=== PATIENT | female | born 1945 | race Caucasian/White ===

== ENCOUNTER → 2018-06-17 09:10 | Outpatient (CLI) | payer MEDICARE, OTHER, SELFPAY ==
[2018-06-17 11:15] LABS: Anion Gap 9.8 mmol/L (3-11); BUN 35 mg/dL (7-18); CO2 27.2 mmol/L (21.0-32.0); CREATININE 1.22 mg/dL (0.55-1.02); Calcium 9.5 mg/dL (8.5-10.1); Chloride 103 mmol/L (98-107); Cholesterol 118 mg/dL (50-200); Estimated GFR 42.97 (mL/min/1.73m2); Glucose 121 mg/dL (70-100); HDL Cholesterol 37 mg/dL (40-60); LDL CHOLESTEROL 69 mg/dL (<100); Potassium 4.4 mmol/L (3.5-5.1); Sodium 140 mmol/L (136-145); Triglyceride 79 mg/dL (30-150)
== END ==
PROVIDERS: PCP Internal Medicine; Visit Provider Internal Medicine
DX: E78.00 Pure hypercholesterolemia, unspecified (principal); N18.3 Chronic kidney disease, stage 3 (moderate)
CPT/HCPCS: 36415; 80048; 80061; 83721

== ENCOUNTER → 2018-06-18 10:00 | Outpatient (CLI) | payer MEDICARE, OTHER, SELFPAY | PROVIDERS: PCP Internal Medicine; Visit Provider Orthopaedic Surgery | DX: M18.12 Unilateral primary osteoarthritis of first carpometacarpal joint, left hand (principal); M75.121 Complete rotator cuff tear or rupture of right shoulder, not specified as traumatic; G56.02 Carpal tunnel syndrome, left upper limb | CPT/HCPCS: 99213 ==

== ENCOUNTER → 2018-09-18 12:42 | Outpatient (BNVA) | payer MEDICARE, OTHER, SELFPAY | PROVIDERS: PCP Internal Medicine; Visit Provider Student in an Organized Health Care Education/Training Program | DX: R69 Illness, unspecified (principal) | CPT/HCPCS: 99204 ==

== ENCOUNTER 2018-09-18 13:11 | Outpatient (CLI) | payer MEDICARE, OTHER, SELFPAY | END 2018-09-18 13:31 | PROVIDERS: PCP Internal Medicine; Visit Provider Student in an Organized Health Care Education/Training Program | DX: I25.10 Atherosclerotic heart disease of native coronary artery without angina pectoris (principal); Z95.818 Presence of other cardiac implants and grafts; I25.2 Old myocardial infarction; I10 Essential (primary) hypertension; E11.9 Type 2 diabetes mellitus without complications; Z79.84 Long term (current) use of oral hypoglycemic drugs | CPT/HCPCS: 99204; 99215; 93005; 93010 ==

== ENCOUNTER 2018-09-25 12:06 | Outpatient (RCR) | payer MEDICARE, OTHER, SELFPAY | END 2018-09-27 23:59 | disposition home or self-care (01) | LOC: CR 12:06 | PROVIDERS: PCP Internal Medicine; Visit Provider Family Medicine | DX: I25.2 Old myocardial infarction (principal); Z51.89 Encounter for other specified aftercare ==

== ENCOUNTER 2018-10-28 13:00 | Outpatient (RCR) | payer MEDICARE, OTHER, SELFPAY | END 2018-10-28 23:59 | disposition home or self-care (01) | LOC: CR 13:00 | PROVIDERS: PCP Internal Medicine; Visit Provider Family Medicine | DX: I25.2 Old myocardial infarction (principal); Z51.89 Encounter for other specified aftercare | CPT/HCPCS: S9472 ==

== ENCOUNTER 2018-11-25 10:00 | Outpatient (RCR) | payer MEDICARE, OTHER, SELFPAY | END 2018-11-28 23:59 | disposition home or self-care (01) | LOC: CR 10:00 | PROVIDERS: PCP Internal Medicine; Visit Provider Family Medicine | DX: I25.2 Old myocardial infarction (principal); Z51.89 Encounter for other specified aftercare | CPT/HCPCS: S9472 ==

== ENCOUNTER 2018-12-14 11:12 | Emergency (ER) | payer MEDICARE, OTHER, SELFPAY ==
--- NOTE | 2018-12-14 11:21 | NUR.NOTE ---
pt slipped at approximately 1100 this morning pt is complaining of a headache 3/10 pt has hematoma over right eye. pt is on plavix
[2018-12-14 11:24] VITALS: BP 154/80; PULSE 87; RESP 16; TEMP 36.4; O2SAT 95
--- NOTE | 2018-12-14 11:39 | DI.CT_ITS ---
SYMPTOMS/DIAGNOSIS: RIGHT FRONTAL HEAD TRAUMA, TENDERNESS TO LOWER C-SPINE S/P FALL CT BRAIN: Noncontrast examination was performed. No priors. The ventricles and sulci are consistent with the patient's age. There are areas of decreased attenuation in the white matter consistent with small vessel ischemic disease. No intracranial hemorrhage, infarct, midline shift or mass effect is identified. The ventricles are intact. The basilar cisterns are patent. There is no evidence of a calvarial fracture. The visualized paranasal sinuses are clear. The mastoid air cells are well pneumatized. There is right periorbital soft tissue swelling noted. IMPRESSION: No acute intracranial process. CT SCAN OF THE CERVICAL SPINE: Multiple contiguous axial images of the cervical spine were obtained. Sagittal and coronal reformatted images were evaluated on the Siemens workstation. Comparison is 09/16/15. No acute fractures or subluxations are seen in the cervical spine. There is normal alignment. There are moderate degenerative changes present throughout the cervical spine. The prevertebral soft tissues are unremarkable. IMPRESSION: No acute fracture or subluxation in the cervical spine.
--- NOTE | 2018-12-14 11:40 | W.ED.GENAD ---
Discharge Plan Disposition Patient Disposition: HOME Discharge Details Chief Complaint: HeadInjury Clinical Impression: Fall, Facial hematoma Primary Care Provider: Rosalie Joya ED Provider: Peter Mishra Home Meds and New Rx's Prescriptions: Continued gabapentin 300 mg capsule 300 mg PO TID PRN (Reason: muscle spasm) Qty: 270 RF: 3 pramipexole 0.5 mg tablet 0.5 mg PO HS Qty: 90 RF: 3 prednisone 1 mg tablet 1 mg PO DAILY Qty: 90 RF: 3 melatonin 3 mg tablet 3 mg PO HS PRNRF: 0 tramadol 50 mg tablet 50 mg PO Q8H PRNRF: 0 nitroglycerin [Nitrostat] 0.4 MG tablet, sublingual 0.4 mg Sublingual PRN RF: 0 cholecalciferol (vitamin D3) [Vitamin D3] 2,000 UNIT capsule 5,000 unit PO DAILY RF: 0 glucosamine HCl 500 MG tablet 2,000 mg PO DAILY RF: 0 promethazine 25 MG tablet 25 mg PO Q6H PRN RF: 0 Aoi.CoTouch Ultra Test 1 EACH strip 1 ea Miscellaneous RF: 0 aspirin [Aspir-Low] 81 MG tablet,delayed release (DR/EC) 81 mg PO DAILY RF: 0 pantoprazole 20 MG tablet,delayed release (DR/EC) 20 mg PO BID Qty: 180 RF: 3 triamterene-hydrochlorothiazid 75-50 mg tablet 1 tab PO DAILY Qty: 90 RF: 3 potassium chloride 10 mEq tablet extended release 10 meq PO DAILY Qty: 90 RF: 3 lisinopril 2.5 mg tablet 2.5 mg PO DAILY Qty: 90 RF: 3 metoprolol tartrate 25 mg tablet 12.5 mg PO BID Qty: 90 RF: 3 clopidogrel 75 mg tablet 75 mg PO DAILY Qty: 90 RF: 3 atorvastatin 80 mg tablet 80 mg PO DAILY Qty: 90 RF: 3 loratadine 10 mg tablet 10 mg PO DAILY Qty: 90 RF: 3 methocarbamol 500 mg tablet 500 mg PO QID PRN (Reason: pain) Qty: 60 RF: 0 glipizide 5 mg tablet extended release 24hr 5 mg PO BID Qty: 180 RF: 2 isosorbide mononitrate 30 mg tablet extended release 24 hr 30 mg PO DAILY Qty: 60 RF: 0 hydrocodone-acetaminophen 1 EACH tablet 1 tab PO Q6H PRN PRNQty: 7 RF: 0 Discharge Instructions Instructions: Fall Prevention for Older Adults (ED), Hematoma (ED) Additional Instructions: Please contact your primary care physician to arrange follow-up. Return to the ER for any worsening or new concerning symptoms. Referrals: Rosalie Joya MD [Primary Care Provider] - Medical Decision Making 11:43 --23-year-old female here after mechanical slip and fall with head trauma on aspirin and Plavix with associated nausea. Right supraorbital hematoma. C-spine tender. Consider acute life-threatening intracranial traumatic hemorrhage. Plan to CT head. Consider cervical fracture. Will obtain CT of the cervical spine. 13:30 --CT of the head interpreted by radiology: No acute abnormality. CT of the cervical spine interpreted by radiology: No acute findings. Pt reassessed and stable. cspine cleared. Usual customary discharge instructions were provided HPI General Mode of arrival: ambulatory. Date/Time Provider Initiated Documentation: 12/14/18 11:39. Limitations to Documentation: no limitations. Information obtained by: patient. HPI Narrative: 73-year-old female with history of coronary artery disease on Plavix and aspirin here after mechanical slip and fall on ice with head trauma. Fall occurred at 1045 this morning. She impacted her right frontal head on the ground. She did not lose consciousness. No visual change, numbness or weakness. She does have pain in her right frontal area with associated hematoma. She also notes some associated nausea. No vomiting. Patient does note that she injured her left arm but does not think it is broken and feels that she just strained a muscle. Related Data Home Medications Medication Instructions Recorded Confirmed cholecalciferol (vitamin D3) 5,000 unit PO DAILY 02/01/15 12/14/18 [Vitamin D3] glucosamine HCl 2,000 mg PO DAILY 02/01/15 12/14/18 nitroglycerin [Nitrostat] 0.4 mg SUBLINGUAL PRN 02/01/15 12/14/18 promethazine 25 mg PO Q6H PRN 02/17/15 12/14/18 OneTouch Ultra Test strip 09/08/15 12/14/18 hydrocodone-acetaminophen 1 tab PO Q6H PRN PRN #7 tab 03/13/18 12/14/18 aspirin [Aspir-Low] 81 mg PO DAILY tab 06/18/18 12/14/18 pantoprazole 20 mg PO BID #180 tab-cap 06/18/18 12/14/18 atorvastatin 80 mg tablet 80 mg PO DAILY #90 tab 07/09/18 12/14/18 clopidogrel 75 mg tablet 75 mg PO DAILY #90 tab 07/09/18 12/14/18 lisinopril 2.5 mg tablet 2.5 mg PO DAILY #90 tab 07/09/18 12/14/18 metoprolol tartrate 25 mg tablet 12.5 mg PO BID #90 tab 07/09/18 12/14/18 potassium chloride ER 10 mEq 10 meq PO DAILY #90 tab-cap 07/09/18 12/14/18 tablet,extended release triamterene 75 1 tab PO DAILY #90 tab-cap 07/09/18 12/14/18 mg-hydrochlorothiazide 50 mg tablet loratadine 10 mg tablet 10 mg PO DAILY #90 tab 07/19/18 12/14/18 melatonin 3 mg tablet 3 mg PO HS PRN 10/08/18 12/14/18 methocarbamol 500 mg tablet 500 mg PO QID PRN #60 tab 10/08/18 12/14/18 tramadol 50 mg tablet 50 mg PO Q8H PRN tab 10/08/18 12/14/18 glipizide ER 5 mg tablet, extended 5 mg PO BID #180 tab 10/09/18 12/14/18 release 24 hr isosorbide mononitrate ER 30 mg 30 mg PO DAILY #60 tab-cap 10/15/18 12/14/18 tablet,extended release 24 hr gabapentin 300 mg capsule 300 mg PO TID PRN #270 cap 12/04/18 12/14/18 pramipexole 0.5 mg tablet 0.5 mg PO HS #90 tab-cap 12/04/18 12/14/18 prednisone 1 mg tablet 1 mg PO DAILY #90 tab 12/04/18 12/14/18 Previous Rx's Medication Instructions Recorded hydrocodone-acetaminophen 1 tab PO Q6H PRN PRN #7 tab 03/13/18 pantoprazole 20 mg PO BID #180 tab-cap 06/18/18 atorvastatin 80 mg tablet 80 mg PO DAILY #90 tab 07/09/18 clopidogrel 75 mg tablet 75 mg PO DAILY #90 tab 09/11/18 lisinopril 2.5 mg tablet 2.5 mg PO DAILY #90 tab 07/09/18 metoprolol tartrate 25 mg tablet 12.5 mg PO BID #90 tab 07/09/18 potassium chloride ER 10 mEq 10 meq PO DAILY #90 tab-cap 07/09/18 tablet,extended release triamterene 75 1 tab PO DAILY #90 tab-cap 07/09/18 mg-hydrochlorothiazide 50 mg tablet loratadine 10 mg tablet 10 mg PO DAILY #90 tab 07/19/18 methocarbamol 500 mg tablet 500 mg PO QID PRN #60 tab 10/08/18 glipizide ER 5 mg tablet, extended 5 mg PO BID #180 tab 10/09/18 release 24 hr isosorbide mononitrate ER 30 mg 30 mg PO DAILY #60 tab-cap 10/15/18 tablet,extended release 24 hr gabapentin 300 mg capsule 300 mg PO TID PRN #270 cap 12/04/18 pramipexole 0.5 mg tablet 0.5 mg PO HS #90 tab-cap 12/04/18 prednisone 1 mg tablet 1 mg PO DAILY #90 tab 12/04/18 Allergies Allergy/AdvReac Type Severity Reaction Status Date / Time metformin Allergy Severe unknown Verified 12/04/18 12:29 Penicillins Allergy Unknown unknown Verified 12/04/18 12:29 rofecoxib [From Vioxx] Allergy Unknown unknown Verified 12/04/18 12:29 tolmetin sodium Allergy Unknown unknown Verified 12/04/18 12:29 [From Tolectin] marijuana AdvReac Intermediate vomitng Verified 12/04/18 12:29 celecoxib [From Celebrex] AdvReac Unknown kindey Verified 12/04/18 12:29 NSAIDS (Non-Steroidal AdvReac Unknown kidney Verified 12/04/18 12:29 Anti-Inflamma General Stated Complaint: HeadInjury SAHRA: 3 Review of Systems Review of Systems All systems reviewed & are unremarkable except as noted in HPI and below Eyes Denies change in vision Gastrointestinal Reports nausea PFSH Medical History T2DM (type 2 diabetes mellitus) Surgical History Endoscopic Carpal Tunnel release (03/13/18) Tonsillectomy and adenoidectomy (02/17/1954) Family History Mother Osteoporosis Arthritis Heart disease Stroke Father Diabetes Arthritis Heart disease Emphysema lung Stroke Sister Diabetes Arthritis Heart disease Mental disorder Social History housing: apartment lives independently: Yes Smoking and Tabacco status: Former Tobacco Use alcohol intake: current alcohol intake frequency: a few times a month substance use type: does not use Seatbelt use: always 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 working smoke detector in home: Yes fire extinguisher in home: Yes carbon monox detector in home: Yes Exam Const General: cooperative and no acute distress HENMT Head: normocephalic, no Heaton's sign, contusion (rt supraorbital), no palpable skull fracture and no raccoon eyes General nose exam: external nose normal Face and sinus: no lacerations Mouth: moist mucous membranes Eyes Conjunctivae: normal conjunctivae Sclera: normal sclerae EOM: EOM intact bilaterally Neck Neck: trachea midline, supple and tender (c6 c7 tenderness) Resp Auscultation: clear to auscultation bilaterally, no rales, no rhonchi and no wheezes Cardio Jugular venous pressure: no JVD Rate: regular rate and not tachycardic Rhythm: regular rhythm GI Palpation: soft, not firm, no guarding, no masses, not rigid and nontender Skin General skin exam: no rashes or lesions noted Neuro General: alert, awake, oriented x3 and tone normal Extrem General: no edema Left upper extremity: normal to inspection Psych Appearance: grossly normal Mental Status: mental status grossly normal Speech and Movement: speech and movement normal Course Vital Signs Temperature 36.4 C L 12/14/18 11:24 Pulse 87 12/14/18 11:24 Respiratory Rate 16 12/14/18 11:24 Blood Pressure 154/80 H 12/14/18 11:24 Pulse Oximetry 95 12/14/18 11:24 Temperature 36.4 C L 12/14/18 11:24 Temperature Source Skin 12/14/18 11:24 Pulse 87 12/14/18 11:24 Respiratory Rate 16 12/14/18 11:24 Respiratory Effort 12/14/18 11:27 Blood Pressure 154/80 H 12/14/18 11:24 Blood Pressure Position Sitting 12/14/18 11:24 Pulse Oximetry 95 12/14/18 11:24 Oxygen Delivery Method Room Air 12/14/18 11:24 Oxygen Flow Rate 0 12/14/18 11:24 Pain Level 3 12/14/18 11:24
--- NOTE | 2018-12-14 13:28 | DI.VRAD_ITS ---
EXAM: CT Head Without Contrast EXAM DATE/TIME: 12/14/2018 11:40 AM CLINICAL HISTORY: 73 years old, female; Signs and symptoms; Other: Fall, RT frontal head trauma, ttp lower cspine TECHNIQUE: Axial computed tomography images of the head/brain without contrast. All CT scans at this facility use at least one of these dose optimization techniques: automated exposure control; mA and/or kV adjustment per patient size (includes targeted exams where dosematched to clinical indication); or iterative reconstruction. Coronal and sagittal reformatted images were created and reviewed. COMPARISON: No relevant prior studies available. FINDINGS: Brain: Generalized atrophy and chronic white matter ischemic changes. There is no mass, acute hemorrhage or acute infarct. Ventricles: Normal. No ventriculomegaly. Bones/joints: Unremarkable. No acute fracture. Sinuses: Visualized sinuses are unremarkable. No acute sinusitis. Mastoid air cells: Visualized mastoid air cells are unremarkable. No mastoid effusion. Soft tissues: Unremarkable. IMPRESSION: No acute abnormality. EXAM: CT Cervical Spine Without Contrast EXAM DATE/TIME: 12/14/2018 11:40 AM CLINICAL HISTORY: 73 years old, female; Signs and symptoms; Other: Fall, RT frontal head trauma, ttp lower cspine TECHNIQUE: Axial computed tomography images of the cervical spine without intravenous contrast. All CT scans at this facility use at least one of these dose optimization techniques: automated exposure control; mA and/or kV adjustment per patient size (includes targeted exams where dose is matched to clinical indication); or iterative reconstruction. Coronal and sagittal reformatted images were created and reviewed. COMPARISON: No relevant prior studies available. FINDINGS: Vertebrae: No acute fracture. Normal alignment. Discs/Spinal canal/Neural foramina:There is moderate multilevel central spinal and foraminal stenosis, secondary to disc buldge/osteophytic spurring.Multilevel advanced facet arthropathy. Soft tissues: Unremarkable. Lungs: Lung apices are normal. IMPRESSION: No acute findings. Dictated and Authenticated by: Genet Norton MD. Ordering:RICHARD Green MD
[2018-12-14 13:42] VITALS: BP 98/51; PULSE 98; RESP 16; O2SAT 98
== END 2018-12-14 13:42 | disposition home or self-care (01) ==
PROVIDERS: Emergency Provider Student in an Organized Health Care Education/Training Program; PCP Internal Medicine
DX: S09.90XA Unspecified injury of head, initial encounter (principal); S00.83XA Contusion of other part of head, initial encounter; W00.0XXA Fall on same level due to ice and snow, initial encounter; Z79.02 Long term (current) use of antithrombotics/antiplatelets; Z79.82 Long term (current) use of aspirin; R11.0 Nausea; E11.9 Type 2 diabetes mellitus without complications; Z79.84 Long term (current) use of oral hypoglycemic drugs; I10 Essential (primary) hypertension
CPT/HCPCS: 99284; 70450; 72125; L0172

== ENCOUNTER 2018-12-25 10:00 | Outpatient (RCR) | payer MEDICARE, OTHER, SELFPAY | END 2018-12-26 23:59 | disposition home or self-care (01) | LOC: CR 10:00 | PROVIDERS: PCP Internal Medicine; Visit Provider Family Medicine | DX: I25.2 Old myocardial infarction (principal); Z51.89 Encounter for other specified aftercare | CPT/HCPCS: S9472 ==

== ENCOUNTER 2019-01-24 11:06 | Outpatient (CLI) | payer MEDICARE, OTHER, SELFPAY ==
[2019-01-24 12:38] LABS: C-Reactive Protein 1.09 mg/dL (0.0-0.3); Creatine Kinase 139 U/L (26-192)
[2019-01-24 13:02] LABS: ESR 44 MM/HR (0-30)
[2019-01-27 12:26] LABS: Syphilis Serology (RPR) Negative (Negative)
[2019-01-27 12:48] LABS: Rheumatoid Factor <8 IU/mL (<12.5)
[2019-01-27 14:17] LABS: ANA Interpretation Negative (NEGAT)
== END 2019-01-24 11:26 ==
PROVIDERS: PCP Internal Medicine; Visit Provider Internal Medicine
DX: M25.50 Pain in unspecified joint (principal); M79.10 Myalgia, unspecified site; E55.9 Vitamin D deficiency, unspecified
CPT/HCPCS: 36415; 82306; 82550; 85652; 84550; 86038; 86140; 86431; 86592

== ENCOUNTER 2019-01-24 12:51 | Outpatient (RCR) | payer MEDICARE, OTHER, SELFPAY | END 2019-01-26 23:59 | disposition home or self-care (01) | LOC: CR 12:51 | PROVIDERS: PCP Internal Medicine; Visit Provider Family Medicine | DX: I25.2 Old myocardial infarction (principal); Z51.89 Encounter for other specified aftercare | CPT/HCPCS: S9472 ==

== ENCOUNTER 2019-02-19 15:30 | Outpatient (REF) | payer MEDICARE, OTHER, SELFPAY ==
[2019-02-20 10:18] LABS: COMMENT (LAB VIEW ONLY) 118.76 mg/dL; Microalb ug/mg Crea 15.9 ug/mg Cr
== END 2019-02-19 15:50 ==
LOC: LBN 15:30
PROVIDERS: PCP Internal Medicine; Visit Provider Internal Medicine
DX: E11.9 Type 2 diabetes mellitus without complications (principal)
CPT/HCPCS: 82043; 82570

== ENCOUNTER 2019-03-14 10:16 | Outpatient (CLI) | payer MEDICARE, OTHER, SELFPAY ==
[2019-03-14 11:17] LABS: C-Reactive Protein 0.47 mg/dL (0.0-0.3); Uric Acid 6.8 mg/dL (2.6-6.0)
== END 2019-03-14 10:36 ==
PROVIDERS: PCP Internal Medicine; Visit Provider Internal Medicine
DX: M10.9 Gout, unspecified (principal); M25.50 Pain in unspecified joint
CPT/HCPCS: 36415; 84550; 86140

== ENCOUNTER 2019-03-30 13:32 | Emergency (ER) | payer MEDICARE, OTHER, SELFPAY ==
[2019-03-30 13:38] VITALS: BP 170/80; PULSE 78; RESP 15; TEMP 37.4; O2SAT 97
--- NOTE | 2019-03-30 15:08 | ED.GENADUL_ITS ---
Discharge Plan Disposition Patient Disposition: HOME Condition: Good Discharge Details Chief Complaint: Cellulitis Clinical Impression: Tick bite of knee Primary Care Provider: Rosalie Joya ED Provider: Oracio Simmons Home Meds and New Rx's Prescriptions: Continued triamcinolone acetonide 0.1 % cream 1 applic TP BID Qty: 15 RF: 1 gabapentin 300 mg capsule 300 mg PO TID PRN (Reason: muscle spasm) Qty: 270 RF: 3 pramipexole 0.5 mg tablet 0.5 mg PO HS Qty: 90 RF: 3 quinine sulfate 324 mg capsule 324 mg PO QHS RF: 0 probenecid-colchicine 500-0.5 mg tablet 1 tab PO BID Qty: 180 RF: 0 tramadol 50 mg tablet 50 mg PO Q8H PRNRF: 0 melatonin 3 mg tablet 3 mg PO HS RF: 0 nitroglycerin [Nitrostat] 0.4 MG tablet, sublingual 0.4 mg Sublingual PRN RF: 0 cholecalciferol (vitamin D3) [Vitamin D3] 2,000 UNIT capsule 5,000 unit PO DAILY RF: 0 glucosamine HCl 500 MG tablet 2,000 mg PO DAILY RF: 0 promethazine 25 MG tablet 25 mg PO Q6H PRN RF: 0 OneTouch Ultra Test 1 EACH strip 1 ea Miscellaneous RF: 0 aspirin [Aspir-Low] 81 MG tablet,delayed release (DR/EC) 81 mg PO DAILY RF: 0 pantoprazole 20 MG tablet,delayed release (DR/EC) 20 mg PO BID Qty: 180 RF: 3 triamterene-hydrochlorothiazid 75-50 mg tablet 1 tab PO DAILY Qty: 90 RF: 3 potassium chloride 10 mEq tablet extended release 10 meq PO DAILY Qty: 90 RF: 3 lisinopril 2.5 mg tablet 2.5 mg PO DAILY Qty: 90 RF: 3 metoprolol tartrate 25 mg tablet 12.5 mg PO BID Qty: 90 RF: 3 clopidogrel 75 mg tablet 75 mg PO DAILY Qty: 90 RF: 3 atorvastatin 80 mg tablet 80 mg PO DAILY Qty: 90 RF: 3 loratadine 10 mg tablet 10 mg PO DAILY Qty: 90 RF: 3 methocarbamol 500 mg tablet 500 mg PO QID PRN (Reason: pain) Qty: 60 RF: 0 glipizide 5 mg tablet extended release 24hr 5 mg PO BID Qty: 180 RF: 2 isosorbide mononitrate 30 mg tablet extended release 24 hr 30 mg PO DAILY Qty: 60 RF: 0 hydrocodone-acetaminophen 1 EACH tablet 1 tab PO Q6H PRN PRNQty: 7 RF: 0 prednisone 2 mg Tablet,Delayed Release (Dr/Ec) 2 mg PO DAILY AM RF: 0 Discharge Instructions Instructions: Tick Bite (ED) Additional Instructions: Please continue to watch the area and return for any signs of infection from the insect/tick bite. Please follow-up with your primary care provider if you develop any change in arthralgias, swelling of your joints that is abnormal, fever chills, vague illness symptoms. Referrals: Rosalie Joya MD [Primary Care Provider] - (As needed for reassessment) Discharge Data Discharge Date/Time-TO BE ENTERED AT DEPARTURE: 03/30/19 15:16 Medical Decision Making Patient presenting to the emergency department chief complaint of tick bite. Patient states that this occurred possibly 2 to 3 days ago. Patient denies any other symptoms, arthralgias, fever chills. Physical exam is unremarkable except for erythema consistent with insect bite and more than likely tick there is some scabbing behind right posterior knee from where patient states that family member pulled off the tick but is concerned for possible remaining parts. Splinter tweezers was utilized to remove any remaining material which was not consistent with tick but more with excoriated skin. Reviewed different types of ticks with patient and she stated that she felt it was a deer tick and given the possibility of it being attached for the last 2 to 3 days I do feel that single dose of medication is warranted for prophylaxis of Lyme. Patient given 200 mg dose of doxycycline. Return precautions were discussed. After discussion of diagnosis and plan of care patient has no further needs, questions, or concerns and states clear understanding to return to the emergency department for any worsening symptoms. HPI General Mode of arrival: ambulatory . Date/Time Provider Initiated Documentation: 03/30/19 14:50 . Limitations to Documentation: no limitations . Information obtained by: patient and RN notes reviewed . History of Present Illness 73 year old F presents to the emergency department with the chief complaint of Tick bite, Patient notes no other symptoms.. Patient did receive the following treatments prior to arrival, none Related Data Home Medications Medication Instructions Recorded Confirmed cholecalciferol (vitamin D3) 5,000 unit PO DAILY 02/01/15 03/30/19 [Vitamin D3] glucosamine HCl 2,000 mg PO DAILY 02/01/15 03/30/19 nitroglycerin [Nitrostat] 0.4 mg SUBLINGUAL PRN 02/01/15 03/30/19 promethazine 25 mg PO Q6H PRN 02/17/15 03/30/19 OneTouch Ultra Test strip 09/08/15 03/19/19 hydrocodone-acetaminophen 1 tab PO Q6H PRN PRN #7 tab 03/13/18 03/30/19 aspirin [Aspir-Low] 81 mg PO DAILY tab 06/18/18 03/30/19 pantoprazole 20 mg PO BID #180 tab-cap 06/18/18 03/30/19 atorvastatin 80 mg tablet 80 mg PO DAILY #90 tab 07/09/18 03/30/19 clopidogrel 75 mg tablet 75 mg PO DAILY #90 tab 07/09/18 03/30/19 lisinopril 2.5 mg tablet 2.5 mg PO DAILY #90 tab 07/09/18 03/30/19 metoprolol tartrate 25 mg tablet 12.5 mg PO BID #90 tab 07/09/18 03/30/19 potassium chloride ER 10 mEq 10 meq PO DAILY #90 tab-cap 07/09/18 03/30/19 tablet,extended release triamterene 75 1 tab PO DAILY #90 tab-cap 07/09/18 03/30/19 mg-hydrochlorothiazide 50 mg tablet loratadine 10 mg tablet 10 mg PO DAILY #90 tab 07/19/18 03/30/19 methocarbamol 500 mg tablet 500 mg PO QID PRN #60 tab 10/08/18 03/30/19 tramadol 50 mg tablet 50 mg PO Q8H PRN tab 10/08/18 03/30/19 glipizide ER 5 mg tablet, extended 5 mg PO BID #180 tab 10/09/18 03/30/19 release 24 hr isosorbide mononitrate ER 30 mg 30 mg PO DAILY #60 tab-cap 10/15/18 03/30/19 tablet,extended release 24 hr gabapentin 300 mg capsule 300 mg PO TID PRN #270 cap 12/04/18 03/30/19 pramipexole 0.5 mg tablet 0.5 mg PO HS #90 tab-cap 12/04/18 03/30/19 quinine 324 mg capsule 324 mg PO QHS 12/18/18 03/30/19 melatonin 3 mg tablet 3 mg PO HS 01/07/19 03/30/19 triamcinolone acetonide 0.1 % 1 applic TP BID #15 gm 01/07/19 03/30/19 topical cream probenecid 500 mg-colchicine 0.5 1 tab PO BID #180 tab 03/19/19 03/30/19 mg tablet prednisone 2 mg PO DAILY AM 03/30/19 03/30/19 Previous Rx's Medication Instructions Recorded hydrocodone-acetaminophen 1 tab PO Q6H PRN PRN #7 tab 03/13/18 pantoprazole 20 mg PO BID #180 tab-cap 06/18/18 atorvastatin 80 mg tablet 80 mg PO DAILY #90 tab 07/09/18 clopidogrel 75 mg tablet 75 mg PO DAILY #90 tab 07/09/18 lisinopril 2.5 mg tablet 2.5 mg PO DAILY #90 tab 07/09/18 metoprolol tartrate 25 mg tablet 12.5 mg PO BID #90 tab 07/09/18 potassium chloride ER 10 mEq 10 meq PO DAILY #90 tab-cap 07/09/18 tablet,extended release triamterene 75 1 tab PO DAILY #90 tab-cap 07/09/18 mg-hydrochlorothiazide 50 mg tablet loratadine 10 mg tablet 10 mg PO DAILY #90 tab 07/19/18 methocarbamol 500 mg tablet 500 mg PO QID PRN #60 tab 10/08/18 glipizide ER 5 mg tablet, extended 5 mg PO BID #180 tab 10/09/18 release 24 hr isosorbide mononitrate ER 30 mg 30 mg PO DAILY #60 tab-cap 10/15/18 tablet,extended release 24 hr gabapentin 300 mg capsule 300 mg PO TID PRN #270 cap 12/04/18 pramipexole 0.5 mg tablet 0.5 mg PO HS #90 tab-cap 12/04/18 triamcinolone acetonide 0.1 % 1 applic TP BID #15 gm 01/07/19 topical cream probenecid 500 mg-colchicine 0.5 1 tab PO BID #180 tab 03/19/19 mg tablet Allergies Allergy/AdvReac Type Severity Reaction Status Date / Time metformin Allergy Severe unknown Verified 03/30/19 13:42 Penicillins Allergy Unknown unknown Verified 03/30/19 13:42 rofecoxib [From Vioxx] Allergy Unknown unknown Verified 03/30/19 13:42 tolmetin sodium Allergy Unknown unknown Verified 03/30/19 13:42 [From Tolectin] marijuana AdvReac Intermediate vomitng Verified 03/30/19 13:42 celecoxib [From Celebrex] AdvReac Unknown kindey Verified 03/30/19 13:42 NSAIDS (Non-Steroidal AdvReac Unknown kidney Verified 03/30/19 13:42 Anti-Inflamma General Stated Complaint: Cellulitis SAHRA: 4 Review of Systems Constitutional Denies body ache(s), Denies fever(s) and Denies headache(s) ENT Denies headache(s) Musculoskeletal Denies myalgias, Denies arthralgias and Denies joint swelling Integumentary/Breasts Reports as per HPI, Denies erythema and Denies rash Neurologic Denies headache(s) and Denies paresthesias [facility] Medical History T2DM (type 2 diabetes mellitus) Surgical History History of umbilical hernia repair (Resolved ~2001) Endoscopic Carpal Tunnel release (03/13/18) Tonsillectomy and adenoidectomy (02/17/1954) Social History Smoking/Tobacco Use Status: Former Tobacco Use Quit Date: 05/31/18 Alcohol Intake: current Alcohol Intake frequency: a few times a month Drug use: Occasionally Substance use type: does not use Housing: apartment Number of Children: 4 What type of physical activity do you participate in: other Details: cardiac 3 x/week, PT 2x/week Seatbelt use: always Drive intox or ride w/intox over the road driver: No Working smoke detector in home: Yes Fire extinguisher in home: Yes Carbon monox detector in home: Yes Do you feel safe in your relationship?: Yes Exam Const General: cooperative, comfortable and no acute distress Orientation: alert, awake and oriented x3 Resp Effort & Inspection: normal respiratory effort and able to speak in complete sentences Skin General skin exam: erythema (R posterior knee circular area with central bite hali ), no fluctuance, no induration and other Rashes: no rashes Neuro General: alert, awake and oriented x3 Course Vital Signs Temperature 37.4 C 03/30/19 13:38 Pulse 78 03/30/19 13:38 Respiratory Rate 15 03/30/19 13:38 Blood Pressure 170/80 H 03/30/19 13:38 Pulse Oximetry 97 03/30/19 13:38 Temperature 37.4 C 03/30/19 13:38 Temperature Source Temporal Artery Scan 03/30/19 13:38 Pulse 78 03/30/19 13:38 Respiratory Rate 15 03/30/19 13:38 Blood Pressure 170/80 H 03/30/19 13:38 Pulse Oximetry 97 03/30/19 13:38 Oxygen Delivery Method Room Air 03/30/19 13:38 Oxygen Flow Rate 0 03/30/19 13:38
[2019-03-30 15:20] VITALS: BP 170/80; PULSE 78; RESP 15; TEMP 37.4; O2SAT 97
[2019-03-30] MEDS: Doxycycline Hyclate 100 MG CAP 200 MG PO (15:20)
== END 2019-03-30 15:16 | disposition home or self-care (01) ==
PROVIDERS: Emergency Provider Nurse Practitioner Family; PCP Internal Medicine
DX: S80.261A Insect bite (nonvenomous), right knee, initial encounter (principal); W57.XXXA Bitten or stung by nonvenomous insect and other nonvenomous arthropods, initial encounter; E11.9 Type 2 diabetes mellitus without complications
CPT/HCPCS: 99283

== ENCOUNTER 2019-04-03 12:59 | Outpatient (CLI) | payer MEDICARE, OTHER, SELFPAY ==
--- NOTE | 2019-04-03 10:00 | DI.RAD_ITS ---
SYMPTOM/DIAGNOSIS: WORSENING LT MEDIAL KNEE PAIN WITH TENDERNESS, R/O [facility] M25.562 LEFT KNEE: Three views. No priors. There is mild spurring at the posterior patella. Enthesophytes are seen at the superior and inferior aspect of the patella. Well corticated osseous fragments are seen at the anterior tibial tuberosity consistent with old injury. The bones are intact and normally mineralized. There is a small suprapatellar joint effusion. Vascular calcifications are present in the soft tissues. IMPRESSION: Mild degenerative changes of the left knee. 2. Small joint effusion.
== END 2019-04-03 13:19 ==
PROVIDERS: PCP Internal Medicine; Visit Provider Student in an Organized Health Care Education/Training Program
DX: M25.562 Pain in left knee (principal); M17.12 Unilateral primary osteoarthritis, left knee; M25.462 Effusion, left knee
CPT/HCPCS: 73562

== ENCOUNTER 2019-06-20 10:57 | Outpatient (CLI) | payer MEDICARE, OTHER, SELFPAY ==
[2019-06-20 11:25] LABS: Abs Immature Grans 0.01 k/cumm (0.0-0.09); Absolute Basophil Count 0.04 k/cumm (0.0-0.2); Absolute Eosinophil Count 0.37 k/cumm (0.0-0.7); Absolute Lymphocyte Count 2.67 k/cumm (1.2-3.4); Absolute Neutrophil Count 3.85 k/cumm (1.2-6.7); Basophils % 0.5; HCT 40.9 % (36.0-46.0); HGB 13.3 g/dL (12.0-15.5); Immature Grans % 0.1; Lymphocytes % 35.9; Mean Corp. HGB Concentration 32.5 g/dL (32.0-36.0); Mean Corpuscular Hemoglobin 31.7 pg (27.0-33.0); Mean Corpuscular Volume 97.4 fL (80-95); Mean Platelet Volume 10.5 fL (8.0-11.0); Monocytes % 6.7; Neutrophils % 51.8; Platelet Count 248 x1000/uL (130-400); RBC Distribution Width 13.9 % (11.7-14.6); White Blood Cell Count 7.44 k/cumm (4.4-10.8)
[2019-06-20 12:03] LABS: COMMENT (LAB VIEW ONLY) 91.25 mg/dL
[2019-06-20 12:30] LABS: Anion Gap 8.6 mmol/L (3-11); BUN 28 mg/dL (7-18); C-Reactive Protein 0.43 mg/dL (0.0-0.3); CO2 30.4 mmol/L (21.0-32.0); CREATININE 1.17 mg/dL (0.55-1.02); Calcium 9.4 mg/dL (8.5-10.1); Chloride 104 mmol/L (98-107); Estimated GFR 44.97 (mL/min/1.73m2); Glucose 237 mg/dL (70-100); Potassium 4.2 mmol/L (3.5-5.1); Sodium 143 mmol/L (136-145); Uric Acid 6.1 mg/dL (2.6-6.0)
[2019-06-20 12:48] LABS: Calculated LDL 61 mg/dL; Cholesterol 128 mg/dL (50-200); HDL Cholesterol 41 mg/dL (40-60); Triglyceride 130 mg/dL (30-150)
== END 2019-06-20 11:17 ==
PROVIDERS: Family Medicine; PCP Internal Medicine; Visit Provider Internal Medicine
DX: E79.0 Hyperuricemia without signs of inflammatory arthritis and tophaceous disease (principal); E78.00 Pure hypercholesterolemia, unspecified; E11.9 Type 2 diabetes mellitus without complications; I10 Essential (primary) hypertension; R60.9 Edema, unspecified
CPT/HCPCS: 36415; 80048; 80061; 83721; 82043; 82570; 84550; 85025; 86140

== ENCOUNTER → 2019-07-29 09:34 | Outpatient (BNVA) | payer MEDICARE, OTHER, SELFPAY | PROVIDERS: PCP Internal Medicine; Referring Provider Internal Medicine; Visit Provider Internal Medicine Cardiovascular Disease | DX: I21.4 Non-ST elevation (NSTEMI) myocardial infarction (principal); E78.5 Hyperlipidemia, unspecified; I10 Essential (primary) hypertension; R25.2 Cramp and spasm; E11.9 Type 2 diabetes mellitus without complications; Z79.84 Long term (current) use of oral hypoglycemic drugs; Z72.0 Tobacco use | CPT/HCPCS: 99205; 99215 ==

== ENCOUNTER 2019-09-17 12:17 | Outpatient (CLI) | payer MEDICARE, OTHER, SELFPAY ==
[2019-09-17 14:05] LABS: Uric Acid 6.1 mg/dL (2.6-6.0)
== END 2019-09-17 12:37 ==
LOC: LBO 12:45 → NCHCO 09-18 13:46
PROVIDERS: PCP Internal Medicine; Visit Provider Internal Medicine
DX: E79.0 Hyperuricemia without signs of inflammatory arthritis and tophaceous disease (principal)
CPT/HCPCS: 36415; 84550

== ENCOUNTER 2020-08-19 03:59 | Outpatient (CLI) | payer MEDICARE, OTHER, SELFPAY ==
[2020-08-19 10:47] LABS: HCT 41.2 % (36.0-46.0); HGB 13.1 g/dL (11.2-15.7)
[2020-08-19 11:26] LABS: Microalb ug/mg Crea 8.8 ug/mg Cr
[2020-08-19 12:01] LABS: Anion Gap 5.8 mmol/L (3-11); BUN 28 mg/dL (7-18); CO2 31.2 mmol/L (21.0-32.0); CREATININE 1.03 mg/dL (0.55-1.02); Calcium 9.3 mg/dL (8.5-10.1); Calculated LDL 144 mg/dL (<100); Chloride 104 mmol/L (98-107); Cholesterol 218 mg/dL (<200); Estimated GFR 51.96 (mL/min/1.73m2); Glucose 104 mg/dL (74-106); HDL Cholesterol 58 mg/dL (40-60); Sodium 141 mmol/L (136-145); TSH 2.46 uIU/mL (0.36-3.74); Triglyceride 84 mg/dL (<150)
[2020-08-19 12:11] LABS: Uric Acid 3.7 mg/dL (2.6-6.0)
== END 2020-08-19 04:19 ==
PROVIDERS: PCP Internal Medicine; Visit Provider Internal Medicine
DX: I10 Essential (primary) hypertension (principal); E11.9 Type 2 diabetes mellitus without complications; E78.00 Pure hypercholesterolemia, unspecified; E79.0 Hyperuricemia without signs of inflammatory arthritis and tophaceous disease; R53.83 Other fatigue; M79.10 Myalgia, unspecified site
CPT/HCPCS: 36415; 80048; 80061; 82043; 82570; 84443; 84550; 85014; 85018

== ENCOUNTER → 2020-08-30 08:59 | Outpatient (BNVA) | payer MEDICARE, OTHER, SELFPAY | PROVIDERS: PCP Internal Medicine; Referring Provider Internal Medicine; Visit Provider Internal Medicine Cardiovascular Disease | DX: I21.4 Non-ST elevation (NSTEMI) myocardial infarction (principal); E66.01 Morbid (severe) obesity due to excess calories; I10 Essential (primary) hypertension; E78.5 Hyperlipidemia, unspecified; E11.9 Type 2 diabetes mellitus without complications; Z87.891 Personal history of nicotine dependence | CPT/HCPCS: 99214 ==

== ENCOUNTER 2020-10-19 21:25 | Outpatient (REF) | payer MEDICARE, OTHER, SELFPAY | END 2020-10-19 21:45 | LOC: LBN 21:25 | PROVIDERS: PCP Internal Medicine; Visit Provider Family Medicine | DX: R30.9 Painful micturition, unspecified (principal) | CPT/HCPCS: 87077; 87086; 87186 ==

== ENCOUNTER 2021-08-22 02:46 | Outpatient (CLI) | payer MEDICARE, OTHER, SELFPAY ==
[2021-08-22 11:07] LABS: COMMENT (LAB VIEW ONLY) 81.87 mg/dL; Microalb ug/mg Crea 12.8 ug/mg Cr
[2021-08-22 11:11] LABS: Anion Gap 9.9 mmol/L (3-11); BUN 26 mg/dL (7-18); CO2 30.1 mmol/L (21.0-32.0); CREATININE 1.1 mg/dL (0.55-1.02); Calcium 9.4 mg/dL (8.5-10.1); Calculated LDL 59 mg/dL (<100); Chloride 105 mmol/L (98-107); Cholesterol 140 mg/dL (<200); Estimated GFR 48.04 (mL/min/1.73m2); Glucose 120 mg/dL (74-106); HDL Cholesterol 58 mg/dL (40-60); Potassium 4.1 mmol/L (3.5-5.1); Sodium 145 mmol/L (136-145); Triglyceride 115 mg/dL (<150)
[2021-08-22 11:20] LABS: Uric Acid 3.7 mg/dL (2.6-6.0)
== END 2021-08-22 02:47 | disposition home or self-care (01) ==
LOC: LBO 02:46
PROVIDERS: PCP Internal Medicine; Visit Provider Internal Medicine
DX: I10 Essential (primary) hypertension (principal); E79.0 Hyperuricemia without signs of inflammatory arthritis and tophaceous disease; E78.00 Pure hypercholesterolemia, unspecified; E11.9 Type 2 diabetes mellitus without complications; E55.9 Vitamin D deficiency, unspecified; N18.30 Chronic kidney disease, stage 3 unspecified
CPT/HCPCS: 36415; 80048; 80061; 82043; 82570; 84550

== ENCOUNTER → 2021-12-09 01:10 | Outpatient (CLI) | payer MEDICARE, OTHER, SELFPAY ==
--- NOTE | 2021-12-09 07:00 | DI.RAD_ITS ---
Exam(s) XR HIP LT COMPLETE AP PELVIS EXAM: XR HIP LT COMPLETE AP PELVIS CLINICAL HISTORY: LT HIP PAIN,M25.552. TECHNIQUE: 2D digital imaging was performed of the left hip. Three views were obtained. AP pelvis and lateral left hip views were obtained. COMPARISON: CR BILATERAL HIPS ADULT from 08/18/2015 FINDINGS: BONES: No acute fracture is present. No bony destructive lesion is seen. JOINTS: No dislocation present. Mild degenerative changes are seen in the hips bilaterally, left grea ter than right. SOFT TISSUE: There is again seen a calcification in the soft tissues adjacent to the greater trochant er. This may represent calcific tendinitis or prior trauma. It is stable. IMPRESSION: Stable degenerative changes of the left hip. DATA REPOSITORY: RADIATION DOSE DELIVERED:
== END ==
PROVIDERS: PCP Internal Medicine; Visit Provider Internal Medicine
DX: M25.552 Pain in left hip (principal); E78.2 Mixed hyperlipidemia; I10 Essential (primary) hypertension; I25.2 Old myocardial infarction
CPT/HCPCS: 99214; 73502

== ENCOUNTER 2021-12-09 02:37 | Outpatient (CLI) | payer MEDICARE, OTHER, SELFPAY ==
[2021-12-09 14:21] LABS: HCT 38.5 % (36.0-46.0); HGB 12.2 g/dL (11.2-15.7); MCH 32.1 pg (27.0-33.0); MCHC 31.7 % (32.0-36.0); MCV 101.3 fL (80-95); MPV 10.3 fL (8.0-11.0); Platelet Count 210 10^3/uL (130-400); RDW 14.7 % (11.7-14.6); RDW-SD 55.4 fL; WBC 6.52 10^3/uL (4.4-10.8)
[2021-12-09 16:12] LABS: TSH 1.71 uIU/mL (0.36-3.74)
== END 2021-12-09 02:38 | disposition home or self-care (01) ==
LOC: LBO 02:37
PROVIDERS: PCP Internal Medicine; Visit Provider Internal Medicine
DX: E11.9 Type 2 diabetes mellitus without complications (principal); R53.83 Other fatigue
CPT/HCPCS: 36415; 85027; 99214; 73502; 84443

== ENCOUNTER 2021-12-26 03:18 | Outpatient (CLI) | payer MEDICARE, OTHER, SELFPAY ==
[2021-12-26 14:29] LABS: Vitamin B12 289 pg/mL (193-986)
== END 2021-12-26 03:19 | disposition home or self-care (01) ==
LOC: LBO 03:18
PROVIDERS: PCP Internal Medicine; Visit Provider Internal Medicine
DX: D75.89 Other specified diseases of blood and blood-forming organs (principal)
CPT/HCPCS: 36415; 82607

== ENCOUNTER → 2022-01-30 01:27 | Outpatient (CLI) | payer MEDICARE, OTHER, SELFPAY ==
--- NOTE | 2022-01-30 06:30 | DI.CT_ITS ---
Exam(s) CT HEAD WO EXAM: CT HEAD WO CLINICAL HISTORY: facial weakness RT SIDE,R29.810. TECHNIQUE: Imaging Protocol: Axial computed tomography images with coronal and sagittal reformatted images were created and reviewed COMPARISON: CT CT HEAD CERVICAL SPINE WO from 12/14/2018 FINDINGS: There are no skull fractures nor fluid in the visualized paranasal sinuses. There is no evidence of intracranial hemorrhage, mass effect, or shift of midline structures. There are no extra-axial fluid collections. Ventricular size is unchanged and is commensurate with the siz e of the overlying cortical sulci. There is no blood within the ventricular system nor within the basal cisterns. Some mild periventricular hypodensity consistent with chronic small vessel disease again noted. Calcification is noted within the vertebral arteries at the skull base. Also calcification within th e intracavernous internal carotid arteries. IMPRESSION: No acute intracranial findings on this noninfused CT scan of the brain. No significant change compared to prior CT scan of 12/14/2018. RADIATION DOSE DELIVERED: 757.04mGy.cm Total DLP DATA REPOSITORY: All CT scans at this facility are submitted to the National Radiology Data Registry (NRDR) Dose Index Registry (DIR) with the [employer] ([employer]). RADIATION OPTIMIZATION: All CT scans at this facility use at least one of these dose optimization te chniques: automated exposure control; mA and/or kV adjustment per patient size (includes targeted exa ms where dose is matched to clinical indication); or iterative reconstruction.
== END ==
PROVIDERS: PCP Internal Medicine; Visit Provider Internal Medicine
DX: R29.810 Facial weakness (principal); I67.2 Cerebral atherosclerosis
CPT/HCPCS: 70450

== ENCOUNTER 2022-02-17 20:50 | Emergency (ER) | payer MEDICARE, OTHER, SELFPAY ==
--- NOTE | 2022-02-17 21:00 | DI.RAD_ITS ---
Exam(s) XR HAND RT COMPLETE EXAM: XR HAND RT COMPLETE CLINICAL HISTORY: fall, thenar emminance injury, ?FB TECHNIQUE: COMPARISON: No exams were available for comparison FINDINGS: Three views were obtained. No fracture or foreign body seen. There are severe degenerative changes involving the greater multangular 1st metacarpal joint and the IP joints of the fingers. IMPRESSION: RADIATION DOSE DELIVERED: Total DLP
--- NOTE | 2022-02-17 21:05 | ED.GENADUL_ITS ---
Discharge Plan Disposition Patient Disposition: HOME Condition: Good Discharge Details Clinical Impression: Hand laceration Primary Care Provider: Rosalie Joya ED Provider: Marah Grossman Home Meds and New Rx's Prescriptions: Continued triamcinolone acetonide 0.1 % cream 1 applic TP BID PRN0RF Rx Instructions: Apply thin film to eczema BID until skin healed quinine sulfate 324 mg capsule 324 mg PO QHS 0RF Label Comments: pt states she takes 2 tablets at night for leg cramps but doesn't know strength. RH glipizide 5 mg tablet extended release 24hr 5 mg PO BID Qty: 180 3RF pramipexole 0.75 mg tablet 0.75 mg PO QHS Qty: 90 3RF methocarbamol 500 mg tablet 500 mg PO QID PRN (Reason: pain) Qty: 60 0RF gabapentin 300 mg capsule 300 mg PO BID PRN (Reason: muscle spasm) Qty: 180 3RF Hold Instructions: Home Medication placed on hold at Doctor's office melatonin 3 mg tablet 3 mg PO HS 0RF atorvastatin 40 mg tablet 40 mg PO DAILY Qty: 90 6RF triamcinolone acetonide 0.5 % ointment 1 applic topical BID PRN (Reason: psoriasis) Qty: 15 0RF Rx Instructions: apply thin film to psoriasis that is not on the face BID prn prednisone 5 mg tablet 5 mg PO DAILY Qty: 12 0RF Rx Instructions: 2 tabs daily x 4 days then 1 qd x 4 days nitroglycerin [Nitrostat] 0.4 MG tablet, sublingual 0.4 mg Sublingual PRN 0RF promethazine 25 MG tablet 25 mg PO Q6H PRN 0RF (DME) OneTouch Ultra Test 1 EACH strip 1 ea Miscellaneous 0RF aspirin [Aspir-Low] 81 MG tablet,delayed release (DR/EC) 81 mg PO DAILY 0RF Label Comments: from D/C [facility] cholecalciferol (vitamin D3) [Vitamin D3] 50 mcg (2,000 unit) capsule 5,000 unit PO QWEEK 0RF prednisone 1 mg tablet 2 mg PO DAILY Qty: 180 3RF triamterene-hydrochlorothiazid 75-50 mg tablet 1 tab PO DAILY Qty: 90 3RF allopurinol 300 mg tablet 300 mg PO DAILY Qty: 90 3RF pantoprazole 20 mg tablet,delayed release (DR/EC) 20 mg PO BID Qty: 180 3RF loratadine 10 mg tablet 10 mg PO DAILY Qty: 90 3RF Trulicity 1.5 mg/0.5 mL pen injector 1.5 mg SC QWEEK Qty: 12 4RF potassium chloride 10 mEq tablet extended release 10 meq PO DAILY Qty: 90 3RF bupropion HCl 300 mg tablet extended release 24 hr 300 mg PO QAM Qty: 90 2RF Discharge Instructions Instructions: Laceration (ED) Additional Instructions: Keep wound clean, dry, covered. He may use Tylenol as needed for discomfort. Keep current dressing on for next 24 hours. After that, you may cover with a Band-Aid. Monitor wound for signs of infection including redness, warmth, drainage, increased pain, fever/chills. If he develop fevers or other new/worsening symptoms to seek care urgently once again. Otherwise, please return in 10 days for suture removal. Referrals: Rosalie Joya MD [Primary Care Provider] - Medical Decision Making Patient is a pleasant [id number] 76-year-old female presenting today with chief complaint of laceration to the right hand. She reports a prior to arrival she was walking up some stairs when she tripped on her cat while holding a [place] dishware. States that she fell and the dish broke causing her to cut her hand. She denies other injuries from the incident. Did not strike her head, no loss of consciousness. Denies any radiation of pain. She reports her last tetanus within the last 10 years. Denies any numbness or tingling. No weakness in the right hand. On exam, patient appears nontoxic. She has a 4 cm linear laceration with small amount of active bleeding into the thenar eminence. Full range of motion of the thumb. Sensation is intact, intact capillary refill. 2+ distal pulses, no pain with palpation over the hand or wrist. No pain over the anatomical snuffbox. The area is quite swollen and tense. I am concerned, particularly given the mechanism, for potential retained foreign body and piece of glass. I do feel that x-ray would be appropriate. FINDINGS: Bones/joints: There is severe narrowing of the 1st carpometacarpal joint with periarticular spurring consistent with severe degenerative change. There are also marked degenerative changes at the 1st interphalangeal joint as well as at the 2nd-5th distal interphalangeal joints and, to a lesser degree, the proximal interphalangeal joints. There is also mild degenerative change of the 1st and 2nd metacarpophalangeal joints. Osseous mineralization is normal. There are no inflammatory osseous erosive changes. No focal osseous lesions are identified. There are no acute displaced fractures or subluxations. There is a 4 mm benign-appearing cystic lesion within the 3rd middle phalanx, which may be degenerative or could represent an intraosseous ganglion. Soft tissues:? Findings suggest soft tissue swelling around the distal radius and ulna.? There is no evidence of a radio-opaque foreign body. IMPRESSION: 1. Multifocal severe degenerative changes. 2. No acute displaced fractures or subluxations. 3. No radiopaque foreign body identified. Discussed the findings with the patient. Patient discussed with/benefits as well as expected procedural steps associated with suture closure. He was un derstanding and wished to proceed. Please see procedure note. Wound was anesthetized with 2% lidocaine. Explored to base, but still no foreign body or debris noted. Copiously irrigated. Wound was then closed using simple interrupted stitches, patient tolerated this well. Edges well approximated. Sterile dressing was applied by myself. Patient I discussed wound care in depth. She will return for wound reevaluation and suture removal. Advised on how to reduce risk of infection. Return p recautions were discussed in detail with signs symptoms of infection and problems with wound healing. All of her questions concerns were addressed and she is in agreement this plan. HPI General Date/Time Provider Initiated Documentation: 02/17/22 20:51 . Limitations to Documentation: no limitations . Information obtained by: patient and RN notes reviewed . History of Present Illness 76 year old F presents to the emergency department with the chief complaint of right hand laceration, described as mild, Quality is described as aching, and is localized to the right and upper extremity. Patient reports no radiation. Patient started experiencing this minute(s) and it has been constant. improves with Immobilization improves symptom(s), Movement worsens symptoms . Patient notes no other symptoms.. Patient did receive the following treatments prior to arrival, none Related Data Home Medications Medication Instructions Recorded Confirmed nitroglycerin 0.4 mg sublingual 0.4 mg SUBLINGUAL PRN 02/01/15 01/25/22 tablet (Nitrostat) promethazine 25 mg tablet 25 mg PO Q6H PRN 02/17/15 01/25/22 blood sugar diagnostic (OneTouch strip 09/08/15 01/25/22 Ultra Test) aspirin 81 mg tablet,delayed 81 mg PO DAILY tab 06/18/18 01/25/22 release (Aspir-Low) quinine sulfate 324 mg capsule 324 mg PO QHS 12/18/18 01/25/22 melatonin 3 mg tablet 3 mg PO HS 01/07/19 01/25/22 triamcinolone acetonide 0.1 % 1 applic TP BID PRN gm 07/29/19 01/25/22 topical cream cholecalciferol (vitamin D3) 50 5,000 unit PO QWEEK cap 03/10/20 01/25/22 mcg (2,000 unit) capsule (Vitamin D3) atorvastatin 40 mg tablet 40 mg PO DAILY #90 tab 08/30/20 01/25/22 prednisone 1 mg tablet 2 mg PO DAILY #180 tab 03/23/21 01/25/22 triamterene 75 1 tab PO DAILY #90 tab-cap 03/23/21 01/25/22 mg-hydrochlorothiazide 50 mg tablet allopurinol 300 mg tablet 300 mg PO DAILY #90 tab 05/24/21 01/25/22 dulaglutide 1.5 mg/0.5 mL 1.5 mg (0.5 mL) SC QWEEK #12 05/24/21 01/25/22 subcutaneous pen injector syringe (Trulicity) loratadine 10 mg tablet 10 mg PO DAILY #90 tab 05/24/21 01/25/22 pantoprazole 20 mg tablet,delayed 20 mg PO BID #180 tab-cap 05/24/21 01/25/22 release potassium chloride 10 mEq 10 meq PO DAILY #90 tab-cap 05/24/21 01/25/22 tablet,extended release bupropion HCl 300 mg 24 hr tablet, 300 mg PO QAM #90 tab 08/02/21 01/25/22 extended release gabapentin 300 mg capsule 300 mg PO BID PRN #180 cap 08/23/21 01/25/22 glipizide 5 mg tablet, extended 5 mg PO BID #180 tab 08/23/21 01/25/22 release 24 hr methocarbamol 500 mg tablet 500 mg PO QID PRN #60 tab 08/23/21 01/25/22 pramipexole 0.75 mg tablet 0.75 mg PO QHS #90 tab 08/23/21 01/25/22 triamcinolone acetonide 0.5 % 1 applic TOPICAL BID PRN #15 g 12/28/21 01/25/22 topical ointment prednisone 5 mg tablet 5 mg PO DAILY #12 tab 01/25/22 01/25/22 Previous Rx's Medication Instructions Recorded atorvastatin 40 mg tablet 40 mg PO DAILY #90 tab 08/30/20 prednisone 1 mg tablet 2 mg PO DAILY #180 tab 03/23/21 triamterene 75 1 tab PO DAILY #90 tab-cap 03/23/21 mg-hydrochlorothiazide 50 mg tablet allopurinol 300 mg tablet 300 mg PO DAILY #90 tab 05/24/21 dulaglutide 1.5 mg/0.5 mL 1.5 mg (0.5 mL) SC QWEEK #12 05/24/21 subcutaneous [facility] loratadine 10 mg tablet 10 mg PO DAILY #90 tab 05/24/21 pantoprazole 20 mg tablet,delayed 20 mg PO BID #180 tab-cap 05/24/21 release potassium chloride 10 mEq 10 meq PO DAILY #90 tab-cap 05/24/21 tablet,extended release bupropion HCl 300 mg 24 hr tablet, 300 mg PO QAM #90 tab 08/02/21 extended release gabapentin 300 mg capsule 300 mg PO BID PRN #180 cap 08/23/21 glipizide 5 mg tablet, extended 5 mg PO BID #180 tab 08/23/21 release 24 hr methocarbamol 500 mg tablet 500 mg PO QID PRN #60 tab 08/23/21 pramipexole 0.75 mg tablet 0.75 mg PO QHS #90 tab 08/23/21 triamcinolone acetonide 0.5 % 1 applic TOPICAL BID PRN #15 g 12/28/21 topical ointment prednisone 5 mg tablet 5 mg PO DAILY #12 tab 01/25/22 Allergies Allergy/AdvReac Type Severity Reaction Status Date / Time metformin Allergy Severe unknown Verified 01/25/22 12:55 Penicillins Allergy Unknown unknown Verified 01/25/22 12:55 rofecoxib [From Vioxx] Allergy Unknown unknown Verified 01/25/22 12:55 tolmetin sodium Allergy Unknown unknown Verified 01/25/22 12:55 [From Tolectin] marijuana AdvReac Intermediate vomitng Verified 01/25/22 12:55 celecoxib [From Celebrex] AdvReac Unknown kindey Verified 01/25/22 12:55 NSAIDS (Non-Steroidal AdvReac Unknown kidney Verified 01/25/22 12:55 Anti-Inflamma General Stated Complaint: Laceration SAHRA: 4 Review of Systems Constitutional Constitutional: Reports as per HPI Musculoskeletal Musculoskeletal: Reports as per HPI Integumentary/Breasts Skin/Breast: Reports as per HPI Neurologic Neurologic: Reports as per HPI, Denies sensory deficit and Denies paresthesias PFSH All Active Problems (Updated 02/17/22 @ 22:00 by SHRAVAN Malcolm) Hand laceration (Acute) Psoriasis (Chronic) Former Cigarette Smoker (Chronic ~2018) quit in 2018 following [place] Osteoarthritis of hands, bilateral (Acute) Cataracts, bilateral (Acute) Mild visually significant cataracts 01/06/21 Hyperlipidemia (Acute) Hypertension (Chronic) Hyperuricemia without signs of inflammatory arthritis and tophaceous disease (Acute) Other recurrent depressive disorders (Acute 02/01/15) Atypical chest pain (Acute) Vitamin D deficiency (Acute 02/17/15) Restless legs syndrome (Acute 02/08/13) Sleep Study 12/2012: abundant periodic limb movements causing signficant sle ep fragmentation; no sleep apnea; Pure hypercholesterolemia (Acute 02/17/15) NSTEMI (non-ST elevated myocardial infarction) (Acute 06/18/18) Myalgia (Acute 03/27/17) Morbid obesity (Acute 02/17/15) Marijuana use (Acute 09/08/15) Rice Krispie bars w/marijuana Low back pain (Acute 02/01/15) Fatigue (Acute 02/17/15) Environmental allergies (Acute 02/17/15) Edema (Acute 02/17/15) Type 2 diabetes mellitus (Acute 02/17/15) Complete tear of right rotator cuff (Chronic 01/17/18) Chronic kidney disease (CKD) stage G3a/A1, moderately decreased glomerular filtration rate (GFR) between 45-59 mL/min/1.73 square meter and albuminuria creatinine ratio less than 30 mg/g (Acute 02/17/15) Medical History (Updated 02/17/22 @ 22:00 by SHRAVAN Malcolm) Carpal tunnel syndrome, left (01/17/18) 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 Started aching @ night .. then pain increased, jose with walking. Improved today post CBD oil and recent rest. But tender. Recovery may be delayed 2' walking, standing @ yard sale... T2DM (type 2 diabetes mellitus) Tobacco abuse quit 2018, occasionally since then Surgical History Endoscopic Carpal Tunnel release (03/13/18) Left History of umbilical hernia repair (~2001) Tonsillectomy and adenoidectomy (02/17/1954) Family History Mother Osteoporosis Arthritis Heart disease Stroke Father Diabetes Arthritis Heart disease Emphysema lung Stroke Sister Diabetes Arthritis Heart disease Mental disorder Social History Smoking/Tobacco Use Status: Former Tobacco Use Quit Date: 05/31/18 Tobacco: How many years used: 45 Smoking risk assessment performed?: Yes Alcohol Intake: current Alcohol Intake frequency: a few times a month Drug use: Occasionally Substance use type: does not use Household members: none Housing: apartment Number of Children: 4 Communication Needs: Corrective Lenses What is your relationship status?: Panel score (0-1 are the most socially isolated patients): 0 What type of physical activity do you participate in: none Seatbelt use: always Drive intox or ride w/intox charter driver: No Working smoke detector in home: Yes Fire extinguisher in home: Yes Carbon monox detector in home: Yes Do you feel safe at home: Yes Do you feel safe in your relationship?: Yes Exam Const General: cooperative, healthy appearing, comfortable, no acute distress and well developed Nutritional Appearance: well nourished and overweight Orientation: alert and awake Resp Effort & Inspection: normal respiratory effort, able to speak in complete sentences and no respiratory distress Cardio Rate: regular rate Rhythm: regular rhythm Skin Trauma: laceration Neuro General: patient alert and patient awake Cognition: normal cognition Speech: speech normal Gait: normal gait Sensory Exam: no sensory deficits noted Extrem Hand/finger images: 1. Laceration into subq. Neurovascularly intact. Full ROM. No visible or palpable FB. Psych Appearance: grossly normal and well kempt Mental Status: mental status grossly normal Speech and Movement: speech and movement normal Course Vital Signs Vital signs: Respiratory Effort 02/17/22 20:59 Pain Level 0 02/17/22 20:58 Procedures Laceration Laceration 1: Site: hand Side (If applicable): right Size (cm): 4 Description: linear Depth: simple, single layer Local Anesthetic: Lidocaine 2% Amount of anesthesia used (mL): 6 Pre-repair: wound explored, irrigated extensively and deep structures intact Skin layer closed with: nylon Size (cm): 5-0 Number of sutures: 4 Technique: simple, interrupted PAWSS Have you Been Recently Intoxicated or Drunk Within the Last 30 days?: No Have you Ever Experienced Previous Episodes of Alcohol Withdrawal?: No Have you ever Experienced Withdrawal Seizures?: No Have you ever Experienced Delirium Tremens(DT)s?: No Have you ever undergone Alcohol Rehabilitation Treatment (i.e, inpt ot outpatient treatment programs)?: No Have you ever Experienced Blackouts?: No Have you ever Combined Alcohol with other Downers within the last 90 days?: No Have you ever Combined Alcohol with any other Substance of Abuse during the last 90 days?: No Positive Blood Alcohol level on Presentation? [PCS.BAL]: No Evidence of Increased Autonomic Activity (i.e. HR>120, tremor, sweating, agitation, nausea)?: No Result: 0
--- NOTE | 2022-02-17 21:51 | DI.VRAD_ITS ---
PROCEDURE INFORMATION: Exam: XR Right Hand Exam date and time: 02/17/2022 9:23 PM Age: 76 years old Clinical indication: Injury or trauma; Sprain or strain; Hand; Right; Injury date: 02/17/22; Injury details: Fall, thenar eminance injury, ? fb TECHNIQUE: Imaging protocol: XR Right hand. Views: 3 or more views. COMPARISON: No relevant prior studies available. FINDINGS: Bones/joints: There is severe narrowing of the 1st carpometacarpal joint with periarticular spurring consistent with severe degenerative change. There are also marked degenerative changes at the 1st interphalangeal joint as well as at the 2nd-5th distal interphalangeal joints and, to a lesser degree, the proximal interphalangeal joints. There is also mild degenerative change of the 1st and 2nd metacarpophalangeal joints. Osseous mineralization is normal. There are no inflammatory osseous erosive changes. No focal osseous lesions are identified. There are no acute displaced fractures or subluxations. There is a 4 mm benign-appearing cystic lesion within the 3rd middle phalanx, which may be degenerative or could represent an intraosseous ganglion. Soft tissues: Findings suggest soft tissue swelling around the distal radius and ulna. There is no evidence of a radio-opaque foreign body. IMPRESSION: 1. Multifocal severe degenerative changes. 2. No acute displaced fractures or subluxations. 3. No radiopaque foreign body identified. Dictated and Authenticated by: Rosalio Naylor MD. Ordering:AMINAH Crystal MD
== END 2022-02-17 22:07 | disposition home or self-care (01) ==
PROVIDERS: Emergency Provider Physician Assistant; PCP Internal Medicine
DX: S61.411A Laceration without foreign body of right hand, initial encounter (principal); W25.XXXA Contact with sharp glass, initial encounter
CPT/HCPCS: 12002; 99283; 73130

== ENCOUNTER 2022-02-27 13:52 | Emergency (ER) | payer MEDICARE, OTHER, SELFPAY ==
[2022-02-27 13:59] VITALS: BP 123/76; PULSE 93; RESP 16; TEMP 36.4; O2SAT 95
--- NOTE | 2022-02-27 14:14 | W.ED.GENAD ---
Discharge Plan Disposition Patient Disposition: HOME Condition: Good Discharge Details Clinical Impression: Encounter for removal of sutures Primary Care Provider: Rosalie Joya ED Provider: Marah Grossman Home Meds and New Rx's Prescriptions: Continued triamcinolone acetonide 0.1 % cream 1 applic TP BID PRN0RF Rx Instructions: Apply thin film to eczema BID until skin healed quinine sulfate 324 mg capsule 324 mg PO QHS 0RF Label Comments: pt states she takes 2 tablets at night for leg cramps but doesn't know strength. RH glipizide 5 mg tablet extended release 24hr 5 mg PO BID Qty: 180 3RF pramipexole 0.75 mg tablet 0.75 mg PO QHS Qty: 90 3RF methocarbamol 500 mg tablet 500 mg PO QID PRN (Reason: pain) Qty: 60 0RF gabapentin 300 mg capsule 300 mg PO BID PRN (Reason: muscle spasm) Qty: 180 3RF Hold Instructions: Home Medication placed on hold at Doctor's office melatonin 3 mg tablet 3 mg PO HS 0RF atorvastatin 40 mg tablet 40 mg PO DAILY Qty: 90 6RF triamcinolone acetonide 0.5 % ointment 1 applic topical BID PRN (Reason: psoriasis) Qty: 15 0RF Rx Instructions: apply thin film to psoriasis that is not on the face BID prn nitroglycerin [Nitrostat] 0.4 MG tablet, sublingual 0.4 mg Sublingual PRN 0RF promethazine 25 MG tablet 25 mg PO Q6H PRN 0RF (DME) OneTouch Ultra Test 1 EACH strip 1 ea Miscellaneous 0RF aspirin [Aspir-Low] 81 MG tablet,delayed release (DR/EC) 81 mg PO DAILY 0RF Label Comments: from D/C [facility] cholecalciferol (vitamin D3) [Vitamin D3] 50 mcg (2,000 unit) capsule 5,000 unit PO QWEEK 0RF triamterene-hydrochlorothiazid 75-50 mg tablet 1 tab PO DAILY Qty: 90 3RF allopurinol 300 mg tablet 300 mg PO DAILY Qty: 90 3RF pantoprazole 20 mg tablet,delayed release (DR/EC) 20 mg PO BID Qty: 180 3RF loratadine 10 mg tablet 10 mg PO DAILY Qty: 90 3RF Trulicity 1.5 mg/0.5 mL pen injector 1.5 mg SC QWEEK Qty: 12 4RF potassium chloride 10 mEq tablet extended release 10 meq PO DAILY Qty: 90 3RF bupropion HCl 300 mg tablet extended release 24 hr 300 mg PO QAM Qty: 90 2RF prednisone 1 mg tablet See Rx Instructions .ROUTE .COMPLEX Qty: 180 3RF Dose Instruction: TAKE 2 TABLETS DAILY Rx Instructions: TAKE 2 TABLETS DAILY Discharge Instructions Instructions: Stitches Removal (ED) Additional Instructions: Please keep wound clean, dry, covered. Monitor wound for signs of infection including redness, warmth, drainage, increased pain, fever/chills. If develop these or other new/worsening symptoms please seek care urgently once again. Please allow the adhesive strips to follow-up naturally. Your wound appears to be healing very well but this will help reinforce the area as it is on the hand wound continues to heal. Please follow-up with your primary care as needed. Referrals: Rosalie Joya MD [Primary Care Provider] - Medical Decision Making Patient is a pleasant 76-year-old [id number] female presenting today for suture removal. Sutures were placed by myself 10 days ago after patient fell and cut her self with a broken dish. She denies any fevers or chills. Wound appears to be healing well no evidence of infection. Wound edges are well approximated. Wound is over the thenar eminence, I am concerned about continued tension over this area spite of healing so well. #4 simple interrupted sutures were removed by myself. The wound was then reassessed and forced with Steri-Strip and benzoin to allow for continued healing. We discussed continued wound care, in particular ways to help prevent or mitigate infection risk. Return precautions were discussed. All of her questions and concerns were addressed and she is agreement this plan. [facility] General Date/Time Provider Initiated Documentation: 02/27/22 14:14. Limitations to Documentation: no limitations. Information obtained by: patient, RN notes reviewed and old records reviewed. History of Present Illness 76 year old F presents to the emergency department with the chief complaint of suture removal right hand, described as mild, Quality is described as aching, and is localized to the right and upper extremity. Patient reports no radiation. Patient started experiencing this day(s) (10) improves with No relieving factors improve symptom(s), No exacerbating factors reported . Patient notes no other symptoms.. Patient did receive the following treatments prior to arrival, other (sutures placed 10 days ago here) Related Data Home Medications Medication Instructions Recorded Confirmed nitroglycerin 0.4 mg sublingual 0.4 mg SUBLINGUAL PRN 02/01/15 02/26/22 tablet (Nitrostat) promethazine 25 mg tablet 25 mg PO Q6H PRN 02/17/15 02/26/22 blood sugar diagnostic (OneTouch strip 09/08/15 02/26/22 Ultra Test) aspirin 81 mg tablet,delayed 81 mg PO DAILY tab 06/18/18 02/26/22 release (Aspir-Low) quinine sulfate 324 mg capsule 324 mg PO QHS 12/18/18 02/26/22 melatonin 3 mg tablet 3 mg PO HS 01/07/19 02/26/22 triamcinolone acetonide 0.1 % 1 applic TP BID PRN gm 07/29/19 02/26/22 topical cream cholecalciferol (vitamin D3) 50 5,000 unit PO QWEEK cap 03/10/20 02/26/22 mcg (2,000 unit) capsule (Vitamin D3) atorvastatin 40 mg tablet 40 mg PO DAILY #90 tab 08/30/20 02/26/22 triamterene 75 1 tab PO DAILY #90 tab-cap 03/23/21 02/26/22 mg-hydrochlorothiazide 50 mg tablet allopurinol 300 mg tablet 300 mg PO DAILY #90 tab 05/24/21 02/26/22 dulaglutide 1.5 mg/0.5 mL 1.5 mg (0.5 mL) SC QWEEK #12 05/24/21 02/26/22 subcutaneous [facility] loratadine 10 mg tablet 10 mg PO DAILY #90 tab 05/24/21 02/26/22 pantoprazole 20 mg tablet,delayed 20 mg PO BID #180 tab-cap 05/24/21 02/26/22 release potassium chloride 10 mEq 10 meq PO DAILY #90 tab-cap 05/24/21 02/26/22 tablet,extended release bupropion HCl 300 mg 24 hr tablet, 300 mg PO QAM #90 tab 08/02/21 02/26/22 extended release gabapentin 300 mg capsule 300 mg PO BID PRN #180 cap 08/23/21 02/26/22 glipizide 5 mg tablet, extended 5 mg PO BID #180 tab 08/23/21 02/26/22 release 24 hr methocarbamol 500 mg tablet 500 mg PO QID PRN #60 tab 08/23/21 02/26/22 pramipexole 0.75 mg tablet 0.75 mg PO QHS #90 tab 08/23/21 02/26/22 triamcinolone acetonide 0.5 % 1 applic TOPICAL BID PRN #15 g 12/28/21 02/26/22 topical ointment prednisone 1 mg tablet See Rx Instructions .ROUTE 02/25/22 .COMPLEX #180 tab Previous Rx's Medication Instructions Recorded atorvastatin 40 mg tablet 40 mg PO DAILY #90 tab 08/30/20 triamterene 75 1 tab PO DAILY #90 tab-cap 03/23/21 mg-hydrochlorothiazide 50 mg tablet allopurinol 300 mg tablet 300 mg PO DAILY #90 tab 05/24/21 dulaglutide 1.5 mg/0.5 mL 1.5 mg (0.5 mL) SC QWEEK #12 05/24/21 subcutaneous pen injector syringe ([facility] loratadine 10 mg tablet 10 mg PO DAILY #90 tab 05/24/21 pantoprazole 20 mg tablet,delayed 20 mg PO BID #180 tab-cap 05/24/21 release potassium chloride 10 mEq 10 meq PO DAILY #90 tab-cap 05/24/21 tablet,extended release bupropion HCl 300 mg 24 hr tablet, 300 mg PO QAM #90 tab 08/02/21 extended release gabapentin 300 mg capsule 300 mg PO BID PRN #180 cap 08/23/21 glipizide 5 mg tablet, extended 5 mg PO BID #180 tab 08/23/21 release 24 hr methocarbamol 500 mg tablet 500 mg PO QID PRN #60 tab 08/23/21 pramipexole 0.75 mg tablet 0.75 mg PO QHS #90 tab 08/23/21 triamcinolone acetonide 0.5 % 1 applic TOPICAL BID PRN #15 g 12/28/21 topical ointment prednisone 1 mg tablet See Rx Instructions .ROUTE 02/25/22 .COMPLEX #180 tab Allergies Allergy/AdvReac Type Severity Reaction Status Date / Time metformin Allergy Severe unknown Verified 02/22/22 12:12 Penicillins Allergy Unknown unknown Verified 02/22/22 12:12 rofecoxib [From Vioxx] Allergy Unknown unknown Verified 02/22/22 12:12 tolmetin sodium Allergy Unknown unknown Verified 02/22/22 12:12 [From Tolectin] marijuana AdvReac Intermediate vomitng Verified 02/22/22 12:12 celecoxib [From Celebrex] AdvReac Unknown kindey Verified 02/22/22 12:12 NSAIDS (Non-Steroidal AdvReac Unknown kidney Verified 02/22/22 12:12 Anti-Inflamma General Stated Complaint: SutureRem SAHRA: 5 Review of Systems Constitutional Constitutional: Reports as per HPI and Denies fever(s) Musculoskeletal Musculoskeletal: Reports as per HPI Integumentary/Breasts Skin/Breast: Reports as per HPI Neurologic Neurologic: Reports as per HPI, Denies sensory deficit and Denies paresthesias PFSH All Active Problems (Updated 02/27/22 @ 14:21 by SHRAVAN Malcolm) Encounter for removal of sutures (Acute) Weakness on right side of face (Acute) Hand laceration (Acute) Psoriasis (Chronic) Former Cigarette Smoker (Chronic ~2018) quit in 2019 following [place] Osteoarthritis of hands, bilateral (Acute) Cataracts, bilateral (Acute) Mild visually significant cataracts 01/06/21 Hyperlipidemia (Acute) Hypertension (Chronic) Hyperuricemia without signs of inflammatory arthritis and tophaceous disease (Acute) Other recurrent depressive disorders (Acute 02/01/15) Atypical chest pain (Acute) Vitamin D deficiency (Acute 02/17/15) Restless legs syndrome (Acute 02/08/13) Sleep Study 12/2012: abundant periodic limb movements causing signficant sleep fragmentation; no sleep apnea; Pure hypercholesterolemia (Acute 02/17/15) NSTEMI (non-ST elevated myocardial infarction) (Acute 06/18/18) Myalgia (Acute 03/27/17) Morbid obesity (Acute 02/17/15) Marijuana use (Acute 09/08/15) Rice Krispie bars w/marijuana Low back pain (Acute 02/01/15) Fatigue (Acute 02/17/15) Environmental allergies (Acute 02/17/15) Edema (Acute 02/17/15) Type 2 diabetes mellitus (Acute 02/17/15) Complete tear of right rotator cuff (Chronic 01/17/18) Chronic kidney disease (CKD) stage G3a/A1, moderately decreased glomerular filtration rate (GFR) between 45-59 mL/min/1.73 square meter and albuminuria creatinine ratio less than 30 mg/g (Acute 02/17/15) Medical History (Updated 02/27/22 @ 14:21 by SHRAVAN Malcolm) Carpal tunnel syndrome, left (01/17/18) 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 Started aching @ night .. then pain increased, jose with walking. Improved today post CBD oil and recent rest. But tender. Recovery may be delayed 2' walking, standing @ yard sale... T2DM (type 2 diabetes mellitus) Tobacco abuse quit 2017, occasionally since then Surgical History Endoscopic Carpal Tunnel release (03/13/18) Left History of umbilical hernia repair (~2001) Tonsillectomy and adenoidectomy (02/17/1954) Family History Mother Osteoporosis Arthritis Heart disease Stroke Father Diabetes Arthritis Heart disease Emphysema lung Stroke Sister Diabetes Arthritis Heart disease Mental disorder Social History Smoking/Tobacco Use Status: Former Tobacco Use Quit Date: 05/31/18 Tobacco: How many years used: 45 Smoking risk assessment performed?: Yes Alcohol Intake: current Alcohol Intake frequency: a few times a month Drug use: Occasionally Substance use type: does not use Household members: none Housing: apartment Number of Children: 4 Communication Needs: Corrective Lenses What is your relationship status?: Panel score (0-1 are the most socially isolated patients): 0 What type of physical activity do you participate in: none Seatbelt use: always Drive intox or ride w/intox hire car driver: No Working smoke detector in home: Yes Fire extinguisher in home: Yes Carbon monox detector in home: Yes Do you feel safe at home: Yes Do you feel safe in your relationship?: Yes Exam Const General: cooperative, healthy appearing, comfortable, no acute distress and well developed Nutritional Appearance: well nourished and overweight Orientation: alert and awake Resp Effort & Inspection: normal respiratory effort, able to speak in complete sentences and no respiratory distress Cardio Rate: regular rate Rhythm: regular rhythm Skin Trauma: laceration (appears to be healing well with no erythema, warmth, drainage, swelling) Neuro General: patient alert and patient awake Cognition: normal cognition Speech: speech normal Gait: normal gait Sensory Exam: no sensory deficits noted Extrem Hand/finger images: 1. Wound apears to be healing well with no evidence of infection Psych Appearance: grossly normal and well kempt Mental Status: mental status grossly normal Speech and Movement: speech and movement normal Course Vital Signs Vital signs: Vital Signs Temperature 36.4 C 02/27/22 13:59 Pulse 93 H 02/27/22 13:59 Respiratory Rate 16 02/27/22 13:59 Blood Pressure 123/76 02/27/22 13:59 Pulse Oximetry 95 02/27/22 13:59 Temperature 36.4 C 02/27/22 13:59 Temperature Source Oral 02/27/22 13:59 Pulse 93 H 02/27/22 13:59 Respiratory Rate 16 02/27/22 13:59 Blood Pressure 123/76 02/27/22 13:59 Pulse Oximetry 95 02/27/22 13:59 Oxygen Delivery Method Room Air 02/27/22 13:59 Oxygen Flow Rate 0 02/27/22 13:59
== END 2022-02-27 14:31 | disposition home or self-care (01) ==
PROVIDERS: Emergency Provider Physician Assistant; PCP Internal Medicine
DX: S61.411D Laceration without foreign body of right hand, subsequent encounter (principal); W25.XXXD Contact with sharp glass, subsequent encounter; Z48.02 Encounter for removal of sutures

== ENCOUNTER 2022-03-02 09:16 | Emergency (ER) | payer MEDICARE, OTHER, SELFPAY ==
[2022-03-02] VITALS (36 sets, daily range): BP systolic 135–177; BP diastolic 82–92; PULSE 83–94; RESP 13–28; TEMP 36.3–36.5; O2SAT 92–97
--- NOTE | 2022-03-02 10:00 | DI.MRI_ITS ---
Exam(s) MR BRAIN WO/W EXAM: MR BRAIN WO/W CLINICAL HISTORY: speech change, right facial droop, pronator drift. TECHNIQUE: Multiplanar multisequence MRI was performed. COMPARISON: CT CT HEAD CERVICAL SPINE WO from 12/14/[address] HEAD WO from 01/30/2022 CR XR CHEST 1V IN DI DEPT from 03/02/2022 FINDINGS: MR examination of the brain was performed according to the usual protocol with additional multi plane r T1 weighted and T1 MP rage images post contrast. There is mild generalized cerebral atrophy. There are multiple focal areas of abnormal signal seen i n periventricular white matter on T2 weighted and FLAIR images consistent with microvascular ischemic changes. There is a a 36 x 39 millimeter in diameter area of abnormal signal in the left frontoparietal region peripherally which appears to be intra-axial. This shows heterogeneous signal but is predominantly mildly increased signal on T 2 weighted imaging and decreased signal on T1 weighted imaging. There i s little if any Deb lesional edema. There is mild mass effect. There is no significant midline zack ft. The mass enhances heterogeneously. Susceptibility weighted imaging shows areas of hemorrhage ce ntrally consistent with necrosis. There is a suggestion of central vascularity. Diffusion weighted imaging shows no evidence of diffusion restriction. No other mass lesion identified in the brain. No other enhancing lesion apart from a couple of areas of subtle enhancement noted adjacent to the above mentioned lesion. The orbital and temporal bone structures appear intact. There is normal flow void in the [place] vasculature. The orbital and temporal bone structures appear intact. IMPRESSION: 3.5-4 cm in diameter left frontoparietal mass lesion which appears to be intra-axial. 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 This mass was not visible on noncontrast CT obtained 12/14/2018. The mass is also essentially occult on a recent cranial CT January 30. DATA REPOSITORY:
--- NOTE | 2022-03-02 10:00 | RT.EKG_ITS ---
APPROVED REPORT Exam: Resting ECG Reason for Exam: shortness of breath Patient Location: E HR:85 bpm ECG Measurements Heart Rate 85 AXIS NV 173 P 52 QRSd 91 QRS -22 QT 400 T 67 QTc 475 Conclusion Sinus rhythm...normal P axis, V-rate 60- 99. Sinus. No STEMI. I have reviewed and interpreted ECG and agree with software generated interpretation.
--- NOTE | 2022-03-02 10:00 | DI.MRI_ITS ---
Exam(s) MR ANGIO NECK WO EXAM: MR ANGIO NECK WO CLINICAL HISTORY: right facial droop pronator drift, right LE weakne. TECHNIQUE: Multiplanar multisequence MRI was performed. COMPARISON: No exams were available for comparison FINDINGS: MR angiography of the cervical region was performed utilizing 2D and 3D [id number] angiography. The examination is technically limited due to motion. No gross carotid identified in the cervical region. There does appear to be mild narrowing of proxim al right internal carotid artery, less than 50 percent luminal diameter. There is left dominant vertebral circulation, no gross vertebral occlusion identified on this technic ally limited study. IMPRESSION: Technically limited study, no grossly significant lesion in carotid or vertebral circulation in cervi sergio region. DATA REPOSITORY:
--- NOTE | 2022-03-02 10:11 | DI.RAD_ITS ---
Exam(s) XR CHEST 1V IN DI DEPT EXAM: XR CHEST 1V IN DI DEPT CLINICAL HISTORY: shortness of breath. TECHNIQUE: 2D digital imaging was performed. COMPARISON: No exams were available for comparison FINDINGS: LUNGS: Clear. No pleural abnormality seen. HEART: Normal. MEDIASTINUM: Normal. OTHER FINDINGS: None. IMPRESSION: No acute pulmonary findings. DATA REPOSITORY: RADIATION DOSE DELIVERED: Total DLP
[2022-03-02 10:30] LABS: Abs Immature Grans 0.02 10^3/uL (0.0-0.06); Absolute Basophil Count 0.04 10^3/uL (0.0-0.2); Absolute Lymphocyte Count 1.99 10^3/uL (1.2-3.4); Absolute Monocyte Count 0.41 10^3/uL (0.1-0.8); Absolute Neutrophil Count 4.45 10^3/uL (1.2-6.7); Basophils % 0.6; Eosinophils % 4.2; HCT 40.5 % (36.0-46.0); Immature Grans % 0.3; Lymphocytes % 27.6; MCH 32.1 pg (27.0-33.0); MCHC 32.1 % (32.0-36.0); MCV 100 fL (80-95); MPV 10.1 fL (8.0-11.0); Monocytes % 5.7; Neutrophils % 61.6; Platelet Count 230 10^3/uL (130-400); RBC 4.05 10^6/uL (3.93-5.22); RDW 14.7 % (11.7-14.6); RDW-SD 53.8 fL; WBC 7.21 10^3/uL (4.4-10.8)
[2022-03-02 10:51] LABS: Troponin I < 50 ng/L (<or=60)
[2022-03-02 10:53] LABS: ALT 24 U/L (14-59); AST 22 U/L (15-37); Albumin 3.5 g/dL (3.4-5.0); Alkaline Phosphatase 76 U/L (46-116); Anion Gap 4.8 mmol/L (3-11); BUN 22 mg/dL (7-18); Bilirubin, Total 0.6 mg/dL (0.2-1.0); CO2 32.2 mmol/L (21.0-32.0); CREATININE 1.2 mg/dL (0.55-1.02); Calcium 9.4 mg/dL (8.5-10.1); Chloride 104 mmol/L (98-107); Estimated GFR 43.45 (mL/min/1.73m2); Glucose 130 mg/dL (74-106); Magnesium 2.8 mg/dL (1.8-2.4); NT-proBNP 107 pg/mL (<300); Potassium 3.8 mmol/L (3.5-5.1); Sodium 141 mmol/L (136-145); TSH 3.05 uIU/mL (0.36-3.74)
--- NOTE | 2022-03-02 11:18 | W.ED.GENAD ---
Discharge Plan Disposition Patient Disposition: HOME Condition: Serious Discharge Details Clinical Impression: Intracranial mass, Urinary tract infection, Right sided weakness Primary Care Provider: Rosalie Joya ED Provider: Geo Mosquera Home Meds and New Rx's Prescriptions: New levetiracetam [Roweepra] 500 mg tablet 500 mg PO BID Qty: 60 0RF cephalexin 250 mg tablet 250 mg PO QID 7 Days Qty: 28 0RF Continued triamcinolone acetonide 0.1 % cream 1 applic TP BID PRN0RF Rx Instructions: Apply thin film to eczema BID until skin healed quinine sulfate 324 mg capsule 324 mg PO QHS 0RF Label Comments: pt states she takes 2 tablets at night for leg cramps but doesn't know strength. RH glipizide 5 mg tablet extended release 24hr 5 mg PO BID Qty: 180 3RF pramipexole 0.75 mg tablet 0.75 mg PO QHS Qty: 90 3RF methocarbamol 500 mg tablet 500 mg PO QID PRN (Reason: pain) Qty: 60 0RF gabapentin 300 mg capsule 300 mg PO BID PRN (Reason: muscle spasm) Qty: 180 3RF Hold Instructions: Home Medication placed on hold at Doctor's office melatonin 3 mg tablet 3 mg PO HS 0RF atorvastatin 40 mg tablet 40 mg PO DAILY Qty: 90 6RF triamcinolone acetonide 0.5 % ointment 1 applic topical BID PRN (Reason: psoriasis) Qty: 15 0RF Rx Instructions: apply thin film to psoriasis that is not on the face BID prn nitroglycerin [Nitrostat] 0.4 MG tablet, sublingual 0.4 mg Sublingual PRN 0RF promethazine 25 MG tablet 25 mg PO Q6H PRN 0RF (DME) OneTouch Ultra Test 1 EACH strip 1 ea Miscellaneous 0RF aspirin [Aspir-Low] 81 MG tablet,delayed release (DR/EC) 81 mg PO DAILY 0RF Label Comments: from D/C [facility] cholecalciferol (vitamin D3) [Vitamin D3] 50 mcg (2,000 unit) capsule 5,000 unit PO QWEEK 0RF triamterene-hydrochlorothiazid 75-50 mg tablet 1 tab PO DAILY Qty: 90 3RF allopurinol 300 mg tablet 300 mg PO DAILY Qty: 90 3RF pantoprazole 20 mg tablet,delayed release (DR/EC) 20 mg PO BID Qty: 180 3RF loratadine 10 mg tablet 10 mg PO DAILY Qty: 90 3RF Trulicity 1.5 mg/0.5 mL pen injector 1.5 mg SC QWEEK Qty: 12 4RF potassium chloride 10 mEq tablet extended release 10 meq PO DAILY Qty: 90 3RF bupropion HCl 300 mg tablet extended release 24 hr 300 mg PO QAM Qty: 90 2RF prednisone 1 mg tablet See Rx Instructions .ROUTE .COMPLEX Qty: 180 3RF Dose Instruction: TAKE 2 TABLETS DAILY Rx Instructions: TAKE 2 TABLETS DAILY Discharge Instructions Additional Instructions: The CAT scan of your head revealed a mass. This looks like a glioma. We will refer to neurosurgery after with his current. You should expect to have a biopsy as well some chemotherapy and some radiation therapy. You are being sent home with a medication called Keppra that you are to take twice a day. Continue all the rest of your medications. You were evaluated by physical therapy in the emergency department, you are being set up for outpatient home health care. A referral for neurosurgery department was placed on your behalf, expect a call from that service Medical Decision Making <SHRAVAN Tomas - Last Filed: 03/03/22 09:56> Patient on MRI has a mass in the left frontoparietal region approximately 36 x 39 mm there is a little perilesional edema per radiologist interpretation and discussion with Dr. Morris without any shift there is an area of necrosis located centrally to the lesion per radiology interpretation MRI does not show abnormality, chest x-ray did not show abnormality Remainder of patient's labs are within normal limits Patient feels as though she would like to go home, this is pending neurosurgical discussion, patient made aware If the patient does wish to go home I think she needs therapy assessment and follow test to make sure that she is safe for discharge Patient maintaining her airway, she had alert and oriented, her sister is very involved and she actually lives about her sister in an apartment building reportedly Patient is dnr status, this was confirmed Mary, care management made aware regarding need for close outpatient follow-up Of note, D-dimer did come back elevated at 1100, patient pending CTA Care be transferred to Dr. Mosquera pending neurosurgery recommendation, [facility] consultations 1249 And On reassessment, patient does have a urinary tract infection, Keflex was called in for patient, 7-day supply see QID <Geo Mosquera MD - Last Filed: 03/02/22 16:08> Medical Records Medical records narrative: The patient had a physical therapy evaluation in the emergency department. She did well. She will be discharged home home.. She is sent home a prescription for Keppra 500 mg twice daily will be sent home with prescription for keppra HPI <SHRAVAN Tomas - Last Filed: 03/03/22 09:56> General Date/Time Provider Initiated Documentation: 03/02/22 09:28. HPI Narrative: This 76-year-old female with history of type 2 diabetes, carpal tunnel syndrome, hypertension, coronary artery disease presents with reports of worsening shortness of breath and worsening speech and swallowing. She states that she has had the symptoms intermittently before but they were worse in the past several days. She denies any pain in her chest. She specifically denies any pleuritic pain or history of pulmonary embolism. She denies any new chest pain or swelling or weight gain. She denies any history of CHF. She states that when she tries to eat or drink she has difficulty swallowing them. This apparently was present several years ago and resolved on its own. She is unsure what her diagnosis was at that time. Related Data Home Medications Medication Instructions Recorded Confirmed nitroglycerin 0.4 mg sublingual 0.4 mg SUBLINGUAL PRN 02/01/15 03/02/22 tablet (Nitrostat) promethazine 25 mg tablet 25 mg PO Q6H PRN 02/17/15 03/02/22 blood sugar diagnostic (OneTouch strip 09/08/15 03/02/22 Ultra Test) aspirin 81 mg tablet,delayed 81 mg PO DAILY tab 06/18/18 03/02/22 release (Aspir-Low) quinine sulfate 324 mg capsule 324 mg PO QHS 12/18/18 03/02/22 melatonin 3 mg tablet 3 mg PO HS 01/07/19 03/02/22 triamcinolone acetonide 0.1 % 1 applic TP BID PRN gm 07/29/19 03/02/22 topical cream cholecalciferol (vitamin D3) 50 5,000 unit PO QWEEK cap 03/10/20 03/02/22 mcg (2,000 unit) capsule (Vitamin D3) atorvastatin 40 mg tablet 40 mg PO DAILY #90 tab 08/30/20 03/02/22 triamterene 75 1 tab PO DAILY #90 tab-cap 03/23/21 03/02/22 mg-hydrochlorothiazide 50 mg tablet allopurinol 300 mg tablet 300 mg PO DAILY #90 tab 05/24/21 03/02/22 dulaglutide 1.5 mg/0.5 mL 1.5 mg (0.5 mL) SC QWEEK #12 05/24/21 03/02/22 subcutaneous pen injector syringe ([facility]) loratadine 10 mg tablet 10 mg PO DAILY #90 tab 05/24/21 03/02/22 pantoprazole 20 mg tablet,delayed 20 mg PO BID #180 tab-cap 05/24/21 03/02/22 release potassium chloride 10 mEq 10 meq PO DAILY #90 tab-cap 05/24/21 03/02/22 tablet,extended release bupropion HCl 300 mg 24 hr tablet, 300 mg PO QAM #90 tab 08/02/21 03/02/22 extended release gabapentin 300 mg capsule 300 mg PO BID PRN #180 cap 08/23/21 03/02/22 glipizide 5 mg tablet, extended 5 mg PO BID #180 tab 08/23/21 03/02/22 release 24 hr methocarbamol 500 mg tablet 500 mg PO QID PRN #60 tab 08/23/21 03/02/22 pramipexole 0.75 mg tablet 0.75 mg PO QHS #90 tab 08/23/21 03/02/22 triamcinolone acetonide 0.5 % 1 applic TOPICAL BID PRN #15 g 12/28/21 03/02/22 topical ointment prednisone 1 mg tablet See Rx Instructions .ROUTE 02/25/22 03/02/22 .COMPLEX #180 tab levetiracetam 500 mg tablet 500 mg PO BID #60 tab 03/02/22 (Roweepra) cephalexin 250 mg tablet 250 mg PO QID 7 Days #28 tab 03/03/22 Previous Rx's Medication Instructions Recorded atorvastatin 40 mg tablet 40 mg PO DAILY #90 tab 08/30/20 triamterene 75 1 tab PO DAILY #90 tab-cap 03/23/21 mg-hydrochlorothiazide 50 mg tablet allopurinol 300 mg tablet 300 mg PO DAILY #90 tab 05/24/21 dulaglutide 1.5 mg/0.5 mL 1.5 mg (0.5 mL) SC QWEEK #12 05/24/21 subcutaneous pen injector syringe (Trulicity) loratadine 10 mg tablet 10 mg PO DAILY #90 tab 05/24/21 pantoprazole 20 mg tablet,delayed 20 mg PO BID #180 tab-cap 05/24/21 release potassium chloride 10 mEq 10 meq PO DAILY #90 tab-cap 05/24/21 tablet,extended release bupropion HCl 300 mg 24 hr tablet, 300 mg PO QAM #90 tab 08/02/21 extended release gabapentin 300 mg capsule 300 mg PO BID PRN #180 cap 08/23/21 glipizide 5 mg tablet, extended 5 mg PO BID #180 tab 08/23/21 release 24 hr methocarbamol 500 mg tablet 500 mg PO QID PRN #60 tab 08/23/21 pramipexole 0.75 mg tablet 0.75 mg PO QHS #90 tab 08/23/21 triamcinolone acetonide 0.5 % 1 applic TOPICAL BID PRN #15 g 12/28/21 topical ointment prednisone 1 mg tablet See Rx Instructions .ROUTE 02/25/22 .COMPLEX #180 tab levetiracetam 500 mg tablet 500 mg PO BID #60 tab 03/02/22 (Roweepra) cephalexin 250 mg tablet 250 mg PO QID 7 Days #28 tab 03/03/22 Allergies Allergy/AdvReac Type Severity Reaction Status Date / Time metformin Allergy Severe unknown Verified 03/02/22 09:51 Penicillins Allergy Unknown unknown Verified 03/02/22 09:51 rofecoxib [From Vioxx] Allergy Unknown unknown Verified 03/02/22 09:51 tolmetin sodium Allergy Unknown unknown Verified 03/02/22 09:51 [From Tolectin] marijuana AdvReac Intermediate vomitng Verified 03/02/22 09:51 celecoxib [From Celebrex] AdvReac Unknown kindey Verified 03/02/22 09:51 NSAIDS (Non-Steroidal AdvReac Unknown kidney Verified 03/02/22 09:51 Anti-Inflamma General Stated Complaint: SOB SAHRA: 2 Review of Systems <SHRAVAN Tomas - Last Filed: 03/03/22 09:56> All systems reviewed & are unremarkable except as noted in HPI and below PFSH <SHRAVAN Tomas - Last Filed: 03/03/22 09:56> All Active Problems (Updated 03/03/22 @ 09:35 by SHRAVAN Tomas) Encounter for removal of sutures (Acute) Intracranial mass (Acute) Urinary tract infection (Acute) Right sided weakness (Acute) Weakness on right side of face (Acute) Hand laceration (Acute) Psoriasis (Chronic) Former Cigarette Smoker (Chronic ~2018) quit in 2019 following PR Osteoarthritis of hands, bilateral (Acute) Cataracts, bilateral (Acute) Mild visually significant cataracts 01/06/21 Hyperlipidemia (Acute) Hypertension (Chronic) Hyperuricemia without signs of inflammatory arthritis and tophaceous disease (Acute) Other recurrent depressive disorders (Acute 02/01/15) Atypical chest pain (Acute) Vitamin D deficiency (Acute 02/17/15) Restless legs syndrome (Acute 02/08/13) Sleep Study 12/2012: abundant periodic limb movements causing signficant sleep fragmentation; no sleep apnea; Pure hypercholesterolemia (Acute 02/17/15) NSTEMI (non-ST elevated myocardial infarction) (Acute 06/18/18) Myalgia (Acute 03/27/17) Morbid obesity (Acute 02/17/15) Marijuana use (Acute 09/08/15) Rice Krispie bars w/marijuana Low back pain (Acute 02/01/15) Fatigue (Acute 02/17/15) Environmental allergies (Acute 02/17/15) Edema (Acute 02/17/15) Type 2 diabetes mellitus (Acute 02/17/15) Complete tear of right rotator cuff (Chronic 01/17/18) Chronic kidney disease (CKD) stage G3a/A1, moderately decreased glomerular filtration rate (GFR) between 45-59 mL/min/1.73 square meter and albuminuria creatinine ratio less than 30 mg/g (Acute 02/17/15) Medical History (Updated 03/03/22 @ 09:35 by SHRAVAN Tomas) Carpal tunnel syndrome, left (01/17/18) 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 Started aching @ night .. then pain increased, jose with walking. Improved today post CBD oil and recent rest. But tender. Recovery may be delayed 2' walking, standing @ yard sale... T2DM (type 2 diabetes mellitus) Tobacco abuse quit 2017, occasionally since then Surgical History Endoscopic Carpal Tunnel release (03/13/18) Left History of umbilical hernia repair (~2001) Tonsillectomy and adenoidectomy (02/17/1954) Family History Mother Osteoporosis Arthritis Heart disease Stroke Father Diabetes Arthritis Heart disease Emphysema lung Stroke Sister Diabetes Arthritis Heart disease Mental disorder Social History Smoking/Tobacco Use Status: Former Tobacco Use Quit Date: 05/31/18 Tobacco: How many years used: 45 Smoking risk assessment performed?: Yes Alcohol Intake: current Alcohol Intake frequency: a few times a month Drug use: Occasionally Substance use type: does not use Household members: none Housing: apartment Number of Children: 4 Communication Needs: Corrective Lenses What is your relationship status?: Panel score (0-1 are the most socially isolated patients): 0 What type of physical activity do you participate in: none Seatbelt use: always Drive intox or ride w/intox corrugated fastener driver: No Working smoke detector in home: Yes Fire extinguisher in home: Yes Carbon monox detector in home: Yes Do you feel safe at home: Yes Do you feel safe in your relationship?: Yes Exam <SHRAVAN Tomas - Last Filed: 03/03/22 09:56> Const General: cooperative and not in acute distress Orientation: alert and oriented x3 HENMT Head: normal to inspection Mouth: oral mucosae normal Other: Uvula midline No drooling, maintaining secretions Eyes Pupils: PERRL EOM: EOM intact bilaterally Other: Extraocular muscles intact Neck Other: No carotid bruit Resp Effort & Inspection: normal respiratory effort Auscultation: clear to auscultation bilaterally Cardio Rate: regular rate Rhythm: regular rhythm Heart Sounds: no murmurs GI Inspection: normal to inspection Other: non-tender Skin General skin exam: no rashes or lesions noted Neuro General: patient alert Cranial Nerves: PERRL and tongue midline Cognition: normal cognition Speech: other (dysphasia) Gait: normal gait Other: Weakness on the right lower extremity with plantarflexion, 3 out of 5 on right, left 5 out of 5 Right hand grasp weak 3 out of 5, left 5 out of 5 upper extremity Rate pronator drift secondary right upper extremity weakness [id number] intact Extrem General: normal to inspection Other: distal pulses intact Course <SHRAVAN Tomas - Last Filed: 03/03/22 09:56> Vital Signs Vital signs: Vital Signs Temperature 36.3 C L 03/02/22 09:45 Pulse 87 03/02/22 09:45 Respiratory Rate 16 03/02/22 09:45 Blood Pressure 177/92 H 03/02/22 09:45 Pulse Oximetry 94 03/02/22 09:45 Temperature 36.3 C L 03/02/22 09:45 Temperature Source Skin 03/02/22 09:45 Pulse 90 03/02/22 10:41 Pulse 85 03/02/22 10:30 Respiratory Rate 20 03/02/22 10:28 Respiratory Effort Non-Labored 03/02/22 10:28 Respiratory Depth Shallow 03/02/22 10:28 Respiratory Pattern Normal 03/02/22 10:28 Blood Pressure 157/84 H 03/02/22 10:41 Blood Pressure Position Sitting 03/02/22 09:45 Pulse Oximetry 95 03/02/22 10:41 Oxygen Delivery Method Room Air 03/02/22 10:41 Oxygen Flow Rate 0 03/02/22 10:41 Pain Level 0 03/02/22 09:45 Lab/Test Results Lab/Test Results: Laboratory Tests Range/Units 03/02/22 03/02/22 03/02/22 10:25 10:25 10:25 WBC (4.4-10.8) 10^3/uL 7.21 RBC (3.93-5.22) 10^6/uL 4.05 Hgb (11.2-15.7) g/dL 13.0 Hct (36.0-46.0) % 40.5 MCV (80-95) fL 100 H MCH (27.0-33.0) pg 32.1 MCHC (32.0-36.0) % 32.1 RDW (11.7-14.6) % 14.7 H Plt Count (130-400) 10^3/uL 230 MPV (8.0-11.0) fL 10.1 Immature Gran % 0.3 Neutrophils % 61.6 Lymphocytes % 27.6 Monocytes % 5.7 Eosinophils % 4.2 Basophils % 0.6 Nucleated RBC % (0.0-0.3) % 0.0 Absolute Neutrophils (1.2-6.7) 10^3/uL 4.45 Absolute Lymphocytes (1.2-3.4) 10^3/uL 1.99 Absolute Monocytes (0.1-0.8) 10^3/uL 0.41 Absolute Eosinophils (0.0-0.7) 10^3/uL 0.30 Absolute Basophils (0.0-0.2) 10^3/uL 0.04 Sodium (136-145) mmol/L 141 Potassium (3.5-5.1) mmol/L 3.8 Chloride (98-107) mmol/L 104 Carbon Dioxide (21.0-32.0) mmol/L 32.2 H Anion Gap (3-11) mmol/L 4.8 BUN (7-18) mg/dL 22 H Creatinine (0.55-1.02) mg/dL 1.2 H Estimated GFR/1.73 m2 (mL/min/1.73m2) 43.45 Glucose (74-106) mg/dL 130 H Calcium (8.5-10.1) mg/dL 9.4 Magnesium (1.8-2.4) mg/dL 2.8 H Total Bilirubin (0.2-1.0) mg/dL 0.6 AST (15-37) U/L 22 ALT (14-59) U/L 24 Alkaline Phosphatase (46-116) U/L 76 Troponin I (<or=60) ng/L < 50 NT-Pro-B Natriuret Pep (<300) pg/mL 107 Total Protein (6.4-8.2) g/dL 7.0 Albumin (3.4-5.0) g/dL 3.5 TSH (0.36-3.74) uIU/mL 3.05 <Geo Mosquera MD - Last Filed: 03/02/22 16:08> Consultations Consultation #1: Case discussed with Dr. Bolton from neurosurgery [place]. 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 Patient will require biopsy. Recommendation for the patient go home on Keppra 500 mg twice daily and follow-up as an outpatient with neurosurgery. Time: 14:25 Sign Out <SHRAVAN Tomas - Last Filed: 03/03/22 09:56> Sign Out Data: Sign Out Comment: pending neurosurgery return phone call and cta chest , pt evaluation if pt to be dispositioned home Last updated by Charlene Quintana PA at 03/02/22 12:50
[2022-03-02] MEDS: Gadoterate meglumine 20 ML VIAL IVP (11:42)
[2022-03-02] MEDS: Normal Saline Flush 10 ML SYR IVP (11:42)
[2022-03-02 12:35] LABS: D-Dimer 1177 ng/mlFEU (<500)
--- NOTE | 2022-03-02 13:17 | DI.CT_ITS ---
Exam(s) CT CHEST PE CTA EXAM: CT CHEST PE CTA CLINICAL HISTORY: elevated ddimer, dyspnea. TECHNIQUE: Imaging Protocol: Axial CT angiography was performed with multi-slice acquisition and mu lti-planar and/or 3D reconstructions. CONTRAST MATERIAL: Intravenous: Omnipaque 350 Contrast volume:structured data in ml COMPARISON: No exams were available for comparison FINDINGS: CT angiography of the chest was performed with intravenous infusion of 100 cc of Omnipaque 350. Examination is somewhat limited by breathing artifact. Note is made of coronary artery calcifications. The lungs are clear. No pleural effusion. Tracheobronchial tree appears intact. No evidence of pulmonary embolic disease. Thoracic aorta is of normal diameter, no thoracic aortic an eurysm or dissection, major branch vessels appear intact. No mediastinal or hilar adenopathy. Images obtained through the upper abdomen show unremarkable appearance of the visualized portions of the liver, spleen, pancreas, adrenals, and kidneys. IMPRESSION: Negative CT angiogram of the chest. No evidence of pulmonary embolic disease. RADIATION DOSE DELIVERED: 572.46mGy.cm Total DLP 572.46mGy.cm Total DLP !Error CTDIvol DATA REPOSITORY: All CT scans at this facility are submitted to the National Radiology Data Registry (NRDR) Dose Index Registry (DIR) with the [employer] ([employer]). RADIATION OPTIMIZATION: All CT scans at this facility use at least one of these dose optimization te chniques: automated exposure control; mA and/or kV adjustment per patient size (includes targeted exa ms where dose is matched to clinical indication); or iterative reconstruction.
[2022-03-02] MEDS: Omnipaque 350 MG/ML 100 ML BTL 53 ML IJ (13:32)
--- NOTE | 2022-03-02 14:06 | NUR.NOTE ---
Pt tolerated swallow study without difficulty Nursing Note:
[2022-03-02 14:39] LABS: Bilirubin Negative (Negative); Blood Trace-intact (Negative); Clarity Cloudy (Clear); Glucose Negative (Negative); Ketones Negative (Negative); Leukocyte Esterase Large (Negative); Nitrite Negative (Negative); Urobilinogen 0.2 EU/dL (Up TO 0.2)
[2022-03-02 14:45] LABS: Bacteria Many HPF (Negative); C & S Indicated? Yes; Casts Negative LPF (Negative); Crystals Negative HPF (Negative); Epithelial Cells Few HPF (Negative); Mucus Negative (Negative); RBC 0-2 HPF (0-2); WBC >50 HPF (0-5)
--- NOTE | 2022-03-02 15:32 | IN_ITS ---
Date of service: 03/02/22 Time of Service: 15:32 PT Notes Physical Therapy Inpatient Initial Evaluation Date: 03/02/2022 Referring Doctor: SHRAVAN Tomas PT Orders: PT CONSULT: Urgent Precautions: Fall. Standard. Activity as tolerated. Patient Profile/Admitting Diagnosis: Loyda is a 76-year-old female with diagnosis of intracranial mass who presented to the ED today with worsening shortness of breath, speech, and swallowing function. Referral to physical therapy was made to provide recommendations for safe discharge planning. PMHX: All Active Problems?(Updated 02/27/22 @ 14:21 by SHRAVAN Malcolm) Encounter for removal of sutures (Acute) Weakness on right side of face (Acute) Hand laceration (Acute) Psoriasis (Chronic) Former Cigarette Smoker (Chronic ~2018) quit in 2018 following MIOsteoarthritis of hands, bilateral (Acute) Cataracts, bilateral (Acute) Mild visually significant cataracts 01/06/21Hyperlipidemia (Acute) Hypertension (Chronic) Hyperuricemia without signs of inflammatory arthritis and tophaceous disease (Acute) Other recurrent depressive disorders (Acute 02/01/15) Atypical chest pain (Acute) Vitamin D deficiency (Acute 02/17/15) Restless legs syndrome (Acute 02/08/13) Sleep Study 12/2012: abundant periodic limb movements causing signficant sleep fragmentation; no sleep apnea; Pure hypercholesterolemia (Acute 02/17/15) NSTEMI (non-ST elevated myocardial infarction) (Acute 06/18/18) Myalgia (Acute 03/27/17) Morbid obesity (Acute 02/17/15) Marijuana use (Acute 09/08/15) Rice Krispie bars w/marijuana Low back pain (Acute 02/01/15) Fatigue (Acute 02/17/15) Environmental allergies (Acute 02/17/15) Edema (Acute 02/17/15) Type 2 diabetes mellitus (Acute 02/17/15) Complete tear of right rotator cuff (Chronic 01/17/18) Chronic kidney disease (CKD) stage G3a/A1, moderately decreased glomerular filtration rate (GFR) between 45-59 mL/min/1.73 square meter and albuminuria creatinine ratio less than 30 mg/g (Acute 02/17/15) Medical History?(Updated 02/27/22 @ 14:21 by SHRAVAN Malcolm) Carpal tunnel syndrome, left (01/17/18) 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 Started aching @ night .. then pain increased, jose with walking. Improved today post CBD oil and recent rest. But tender. Recovery may be delayed 2' walking, standing @ yard sale... T2DM (type 2 diabetes mellitus) Tobacco abuse quit 2017, occasionally since then Surgical History? Endoscopic Carpal Tunnel release (03/13/18) LeftHistory of umbilical hernia repair (~2001) Tonsillectomy and adenoidectomy (02/17/1954) Social History/Home Situation: Lives alone on the second floor of a private home with 14 steps to enter with rails on both sides. Sister lives on the first floor of the house. Patient is independent with all aspects of ADLs prior to admission. Uses no AD indoors, utilizeds SPC for outdoors Equipment Owned/DME: [facility], 3 SPCs Subjective: Agreeable to PT consult. Hopeful to go home today. Feels that she can manage at home with the help of her sister. Agreeable to working with home health PT for mobility progression. Objective: General Observation: In NAD. Supine in bed. Sister present during evaluation. Telemetry in place. Mental Status: Alert and oriented as to person, place, time, and purpose. Able to pay attention, focus, and respond appropriately. Pain: Denies Vital Signs: Heart rate went up to 160 bpm during ambulation activity, went back down to 110 bpm with standing rest ROM: Right Upper Extremity: Shoulder Flexion WFL. Shoulder abduction WFL. Elbow flexion WFL. Wrist flexion WFL. Functional opening and closing of hand WFL. Left Upper Extremity: Shoulder Flexion WFL. Shoulder abduction WFL. Elbow flexion WFL. Wrist flexion WFL. Functional opening and closing of hand WFL. Right Lower Extremity: Hip flexion WFL. Hip abduction WFL. Knee flexion WFL. Ankle dorsiflexion neutral only. Ankle plantarflexion WFL. Left Lower Extremity: Hip flexion WFL. Hip abduction WFL. Knee flexion WFL. Ankle dorsiflexion WFL. Ankle plantarflexion WFL. Strength: Right Upper Extremity: Shoulder flexors 4-/5. Shoulder abductors 4-/5. Elbow flexors 5/5. Elbow extensors 5/5. Wind Farm Operations Manager strong. Left Upper Extremity: Shoulder flexors 4-/5. Shoulder abductors 4-/5. Elbow flexors 5/5. Elbow extensors 5/5. Wind Farm Operations Manager strong. Right Lower Extremity: Hip flexors 4-/5. Hip abductors 4-/5. Knee flexors 5/5. Knee extensors 4/5. Ankle dorsiflexors 3-/5. Ankle plantarflexors 4/5. Left Lower Extremity: Hip flexors 4-/5. Hip abductors 4-/5. Knee flexors 5/5. Knee extensors 4/5. Ankle dorsiflexors 3-/5. Ankle plantarflexors 4/5. Bed Mobility/Transfers: Supine to sit independent Sit to supine independent Sit to stand independent Stand to sit independent Gait: Instructed patient with level surface ambulation of 100 feet requiring standby assist with front-wheeled walker. Salud decreased. Balance: Static Sitting: Normal Dynamic Sitting: Normal Static Standing: Good fair Dynamic Standing: Special Tests: Mobility Limitations Standardized Measure [facility] 6 clicks Basic Mobility Inpatient Short Form: Raw Score: 23 CMS Score: 11% deficit Informed Consent/Education: Patient was instructed in purpose of PT consult. Education on the benefit of using front wheeled walker in terms of level of stability and energy conservation made with patient and patient's sister for the session. Assessment: Loyda requires the use of a front wheeled walker to maximize independence, conserve energy, and reduce fall risk at home. Patient presents with clinical signs and symptoms consistent with current/admitting diagnoses that have resulted to mobility limitations, gait instability, generalized weakness, and overall ADL decline as demonstrated by the following impairment le elo findings: 1. Decreased strength to B [place] ajor muscle groups 2. Impaired standing balance 3. Impaired activity tolerance Impairments are contributing to the following functional limitations: 1. Difficulty with ambulation without assistive device 2. Increased completion time for mobility ADL performance 3. Increased risk for falls 4. Difficulty with managing steps alone safely Patient is assessed as a 96550 moderatecomplexity based on the following: History: 76-year-old female 11 past medical history as indicated above Examination: Demonstrable impairment in strength, balance, and mobility level with underlying impairments and functional limitations as exhibited above as well as deficit score of % utilizing the [facility] Mobility Inpatient Short Form Presentation: Stable Decision Makin moderate complexity Goals: N/AA PT evaluation only Plan of Care/Treatment Plan: N/AA PT evaluation only. DISCHARGE RECOMMENDATIONS: [] Home with no services [] [X] Home with services. Home when medically cleared by MD. Patient will benefit from home health PT services in order to progress mobility level using least restrictive assistive ambulatory device, assess home safety, identify additional equipment needs, and establish a functional maintenance program that will increase ability of patient to remain at home. [] Home with outpatient PT [] [] SNF for continued rehabilitation [] [] Disability Counselor Care [] [] SNF versus LTC based on ability to participate and progress [] TREATMENT CODE/TIME: 77840 x 30 minutes beginning at 15:32 PM. Thank you for the opportunity to participate in the care of this patient. Zari Multani PT, DPT, CLT [facility] [place], [place]
--- NOTE | 2022-03-02 17:45 | CMPROGNOTE_ITS ---
- If Service Date Differs Date of service: 03/02/22 Time of Service: 17:45 Care Management Progress Note Loyda presents in the ED for shortness of breath and right sided weakness. ED provider recommends that she be admitted but patient prefers to return home. At the request of ED provider, [place] coordinates an urgent [place] [facility] assist Loyda in obtaining a follow up appointment. A referral is also made to [facility] for new RN, PT and CUSTOMER CONTACT SALES ASSOCIATE services to help support Loyda in the community.
== END 2022-03-02 19:20 | disposition home or self-care (01) ==
PROVIDERS: Physician Assistant; Emergency Provider Emergency Medicine; PCP Internal Medicine
DX: G93.89 Other specified disorders of brain (principal); R06.02 Shortness of breath; G81.91 Hemiplegia, unspecified affecting right dominant side; R29.810 Facial weakness; N39.0 Urinary tract infection, site not specified; B96.1 Klebsiella pneumoniae [K. pneumoniae] as the cause of diseases classified elsewhere; R47.89 Other speech disturbances; R29.818 Other symptoms and signs involving the nervous system; R06.00 Dyspnea, unspecified
CPT/HCPCS: 36415; 70547; 70553; 71275; 80053; 87077; 93005; 97162; 99285; 71045; 81003; 81015; 83735; 83880; 84443; 84484; 85025; 85379; 87086; 87186; 93010; J3490

== ENCOUNTER 2022-04-15 14:11 | Inpatient (IN) | payer MEDICARE, OTHER, SELFPAY ==
[2022-04-15 14:24] VITALS: BP 135/85; PULSE 97; RESP 18; TEMP 36.1; O2SAT 95
--- NOTE | 2022-04-15 16:16 | ED.GENADUL_ITS ---
Discharge Plan Disposition Patient Disposition: [facility] INPATIENT Condition: Serious Discharge Details Clinical Impression: Acute hyperglycemia, Hyperkalemia, Hyponatremia, Generalized weakness Primary Care Provider: Rosalie Joya ED Provider: Peter Mishra Home Meds and New Rx's Prescriptions: No Action glipizide 5 mg tablet extended release 24hr 5 mg PO BID Qty: 180 3RF methocarbamol 500 mg tablet 500 mg PO QID PRN (Reason: pain) Qty: 60 0RF gabapentin 300 mg capsule 300 mg PO BID PRN (Reason: muscle spasm) Qty: 180 3RF Hold Instructions: Home Medication placed on hold at Doctor's office melatonin 3 mg tablet 3 mg PO HS PRN triamcinolone acetonide 0.5 % ointment 1 applic topical BID PRN (Reason: psoriasis) Qty: 15 0RF Rx Instructions: apply thin film to psoriasis that is not on the face BID prn nitroglycerin [Nitrostat] 0.4 MG tablet, sublingual 0.4 mg Sublingual PRN PRN (DME) OneTouch Ultra Test 1 EACH strip 1 ea Miscellaneous cholecalciferol (vitamin D3) [Vitamin D3] 50 mcg (2,000 unit) capsule 5,000 unit PO DAILY allopurinol 300 mg tablet 300 mg PO DAILY Qty: 90 3RF loratadine 10 mg tablet 10 mg PO DAILY Qty: 90 3RF Trulicity 1.5 mg/0.5 mL pen injector 1.5 mg SC QWEEK Qty: 12 4RF Rx Instructions: Sundays bupropion HCl 300 mg tablet extended release 24 hr 300 mg PO QAM Qty: 90 2RF dexamethasone 4 mg tablet 8 mg PO BID levetiracetam [Roweepra] 500 mg tablet 500 mg PO BID Qty: 60 0RF trazodone 50 mg Tablet 75 mg PO QHS PRN sulfamethoxazole-trimethoprim 800-160 mg tablet 1 tab PO DIRECTED Rx Instructions: Saturdays, Mondays, Wednesdays triamterene-hydrochlorothiazid 37.5-25 mg Capsule 2 cap PO QAM pramipexole 0.5 mg Tablet 0.75 mg PO QHS atorvastatin 40 mg tablet 80 mg PO HS potassium chloride 10 mEq tablet extended release 10 meq PO BID pantoprazole 20 mg tablet,delayed release (DR/EC) 40 mg PO DAILY aspirin [Aspirin Low-Strength] 81 mg Tablet,Delayed Release (Dr/Ec) 81 mg PO DAILY Medical Decision Making 1620 -- 76-year-old female with history of type 2 diabetes, on Trulicity and glipizide, recently diagnosed glioblastoma with plan for chemoradiation, currently on increasing dose of Decadron, here with hyperglycemia per home health. --Nursing noted significant generalized weakness attempted to transition to urinal. Patient requiring near full assist. 1840 --labs reviewed and significant hyperglycemia noted. No anion gap acidosis. Patient also with hyponatremia and hyperkalemia. EKG was reviewed and interpreted by me: Please see report, sinus rhythm 89 bpm, LVH, nondiagnostic. Plan to give IV fluid bolus, 500 mL normal saline and give regular insulin 10 units sc. -- I spoke with hospitalist on-call, Dr. Rojo, discussed ED presentation and course, he will admit the patient and request bridging orders be placed to the floor. Of note, patient does have MRI of the brain scheduled for Sunday. Lab Data Lab results reviewed: Yes I reviewed the patient's lab results. Labs: Laboratory Tests Range/Units 04/15/22 04/15/22 04/15/22 16:18 16:18 17:00 WBC (4.4-10.8) 10^3/uL 14.48 H RBC (3.93-5.22) 10^6/uL 5.07 Hgb (11.2-15.7) g/dL 16.1 H Hct (36.0-46.0) % 47.2 H MCV (80-95) fL 93 MCH (27.0-33.0) pg 31.8 MCHC (32.0-36.0) % 34.1 RDW (11.7-14.6) % 13.6 Plt Count (130-400) 10^3/uL 206 MPV (8.0-11.0) fL 11.6 H Immature Gran % 1.0 Neutrophils % 90.0 Lymphocytes % 5.9 Monocytes % 2.9 Eosinophils % 0.1 Basophils % 0.1 Nucleated RBC % (0.0-0.3) % 0.0 Absolute Neutrophils (1.2-6.7) 10^3/uL 13.03 H Absolute Lymphocytes (1.2-3.4) 10^3/uL 0.85 L Absolute Monocytes (0.1-0.8) 10^3/uL 0.42 Absolute Eosinophils (0.0-0.7) 10^3/uL 0.01 Absolute Basophils (0.0-0.2) 10^3/uL 0.01 Sodium (136-145) mmol/L 129 L Potassium (3.5-5.1) mmol/L 5.5 H Chloride (98-107) mmol/L 91 L Carbon Dioxide (21.0-32.0) mmol/L 27.7 Anion Gap (3-11) mmol/L 10.3 BUN (7-18) mg/dL 53 H Creatinine (0.55-1.02) mg/dL 1.6 H Estimated GFR/1.73 m2 (mL/min/1.73m2) 31.17 Glucose (74-106) mg/dL 603 H* Calcium (8.5-10.1) mg/dL 10.2 H Total Bilirubin (0.2-1.0) mg/dL 1.0 AST (15-37) U/L 20 ALT (14-59) U/L 71 H Alkaline Phosphatase (46-116) U/L 93 Total Protein (6.4-8.2) g/dL 7.2 Albumin (3.4-5.0) g/dL 3.4 Urine Color (Yellow) Urine Clarity (Clear) Urine pH (5-8) Ur Specific [place] (1.005-1.025) Urine Protein (Negative) mg/dL Urine Ketones (Negative) mg/dL Urine Blood (Negative) Urine Nitrite (Negative) Urine Bilirubin (Negative) Urine Urobilinogen (Up TO 0.2) EU/dL Ur Leukocyte Esterase (Negative) Urine Glucose (Negative) mg/dL COVID-19 Source Nasal/Nares Range/Units 04/15/22 18:36 WBC (4.4-10.8) 10^3/uL RBC (3.93-5.22) 10^6/uL Hgb (11.2-15.7) g/dL Hct (36.0-46.0) % MCV (80-95) fL MCH (27.0-33.0) pg MCHC (32.0-36.0) % RDW (11.7-14.6) % Plt Count (130-400) 10^3/uL MPV (8.0-11.0) fL Immature Gran % Neutrophils % Lymphocytes % Monocytes % Eosinophils % Basophils % Nucleated RBC % (0.0-0.3) % Absolute Neutrophils (1.2-6.7) 10^3/uL Absolute Lymphocytes (1.2-3.4) 10^3/uL Absolute Monocytes (0.1-0.8) 10^3/uL Absolute Eosinophils (0.0-0.7) 10^3/uL Absolute Basophils (0.0-0.2) 10^3/uL Sodium (136-145) mmol/L Potassium (3.5-5.1) mmol/L Chloride (98-107) mmol/L Carbon Dioxide (21.0-32.0) mmol/L Anion Gap (3-11) mmol/L BUN (7-18) mg/dL Creatinine (0.55-1.02) mg/dL Estimated GFR/1.73 m2 (mL/min/1.73m2) Glucose (74-106) mg/dL Calcium (8.5-10.1) mg/dL Total Bilirubin (0.2-1.0) mg/dL AST (15-37) U/L ALT (14-59) U/L Alkaline Phosphatase (46-116) U/L Total Protein (6.4-8.2) g/dL Albumin (3.4-5.0) g/dL Urine Color (Yellow) Yellow Urine Clarity (Clear) Clear Urine pH (5-8) 5.5 Ur Specific [place] (1.005-1.025) 1.020 Urine Protein (Negative) mg/dL Negative Urine Ketones (Negative) mg/dL Negative Urine Blood (Negative) Negative Urine Nitrite (Negative) Negative Urine Bilirubin (Negative) Negative Urine Urobilinogen (Up TO 0.2) EU/dL 0.2 Ur Leukocyte Esterase (Negative) Negative Urine Glucose (Negative) mg/dL >=1000 H COVID-19 Source HPI General Mode of arrival: ambulatory . Date/Time Provider Initiated Documentation: 04/15/22 14:34 . Limitations to Documentation: no limitations . Information obtained by: patient . HPI Narrative: 76-year-old female with history of diabetes type 2, recently diagnosed glioblastoma, on Decadron, plan for initiation of chemo and radiation, here with hyperglycemia. Home health nurse check glucose today was noted to be 540. Patient is on glipizide and Trulicity which she has been taking. Glucose severely elevated with no modifiers. Patient denies dysuria. No increased urinary frequency. Related Data Home Medications Medication Instructions Recorded Confirmed nitroglycerin 0.4 mg sublingual 0.4 mg sublingual PRN PRN 02/01/15 04/15/22 tablet (Nitrostat) blood sugar diagnostic (OneTouch 09/08/15 03/02/22 Ultra Test strips) melatonin 3 mg tablet 3 mg PO HS PRN 01/07/19 04/15/22 cholecalciferol (vitamin D3) 50 5,000 unit PO DAILY 03/10/20 04/15/22 mcg (2,000 unit) capsule (Vitamin D3) allopurinol 300 mg tablet 300 mg PO DAILY #90 tabs 05/24/21 04/15/22 dulaglutide 1.5 mg/0.5 mL 1.5 mg (0.5 mL) subcut QWEEK #12 05/24/21 04/15/22 subcutaneous pen injector SYRGS (Trulicity) loratadine 10 mg tablet 10 mg PO DAILY #90 tabs 05/24/21 04/15/22 bupropion HCl 300 mg 24 hr tablet, 300 mg PO QAM #90 tabs 08/02/21 04/15/22 extended release gabapentin 300 mg capsule 300 mg PO BID PRN muscle spasm 08/23/21 04/15/22 #180 caps glipizide 5 mg tablet, extended 5 mg PO BID #180 tabs 08/23/21 04/15/22 release 24 hr methocarbamol 500 mg tablet 500 mg PO QID PRN pain #60 tabs 08/23/21 04/15/22 triamcinolone acetonide 0.5 % 1 applic topical BID PRN psoriasis 12/28/21 04/15/22 topical ointment #15 grams levetiracetam 500 mg tablet 500 mg PO BID #60 tabs 03/02/22 04/15/22 (Roweepra) dexamethasone 4 mg tablet 8 mg PO BID 04/03/22 04/15/22 aspirin 81 mg tablet,delayed 81 mg PO DAILY 04/15/22 04/15/22 release atorvastatin 40 mg tablet 80 mg PO HS 04/15/22 04/15/22 pantoprazole 20 mg tablet,delayed 40 mg PO DAILY 04/15/22 04/15/22 release potassium chloride 10 mEq 10 meq PO BID 04/15/22 04/15/22 tablet,extended release pramipexole 0.5 mg tablet 0.75 mg PO QHS 04/15/22 04/15/22 sulfamethoxazole 800 1 tab PO DIRECTED 04/15/22 04/15/22 mg-trimethoprim 160 mg tablet trazodone 50 mg tablet 75 mg PO QHS PRN 04/15/22 04/15/22 triamterene 37.5 2 cap PO QAM 04/15/22 04/15/22 mg-hydrochlorothiazide 25 mg capsule Previous Rx's Medication Instructions Recorded allopurinol 300 mg tablet 300 mg PO DAILY #90 tabs 05/24/21 dulaglutide 1.5 mg/0.5 mL 1.5 mg (0.5 mL) subcut QWEEK #12 05/24/21 subcutaneous pen injector SYRGS (Trulicity) loratadine 10 mg tablet 10 mg PO DAILY #90 tabs 05/24/21 bupropion HCl 300 mg 24 hr tablet, 300 mg PO QAM #90 tabs 08/02/21 extended release gabapentin 300 mg capsule 300 mg PO BID PRN muscle spasm 08/23/21 #180 caps glipizide 5 mg tablet, extended 5 mg PO BID #180 tabs 08/23/21 release 24 hr methocarbamol 500 mg tablet 500 mg PO QID PRN pain #60 tabs 08/23/21 triamcinolone acetonide 0.5 % 1 applic topical BID PRN psoriasis 12/28/21 topical ointment #15 grams levetiracetam 500 mg tablet 500 mg PO BID #60 tabs 03/02/22 (Roweepra) Allergies Allergy/AdvReac Type Severity Reaction Status Date / Time metformin Allergy Severe unknown Verified 04/15/22 14:32 Penicillins Allergy Unknown unknown Verified 04/15/22 14:32 rofecoxib [From Vioxx] Allergy Unknown unknown Verified 04/15/22 14:32 tolmetin sodium Allergy Unknown unknown Verified 04/15/22 14:32 [From Tolectin] marijuana (cannabis) AdvReac Intermediate vomitng Verified 04/15/22 14:32 [marijuana] celecoxib [From Celebrex] AdvReac Unknown kindey Verified 04/15/22 14:32 NSAIDS (Non-Steroidal AdvReac Unknown kidney Verified 04/15/22 14:32 Anti-Inflamma General Stated Complaint: Diabetes SAHRA: 3 Review of Systems All systems reviewed & are unremarkable except as noted in HPI and below Constitutional Constitutional: Reports fatigue, Denies fever(s) and Reports weakness (generalized) Neurologic Neurologic: Reports abnormal speech (Expressive aphasia), Reports confusion and Reports weakness (generalized) Comments: Right-sided weakness Psychiatric Psychiatric: Reports confusion Endocrine Endocrine: Reports fatigue PFSH All Active Problems (Updated 04/15/22 @ 18:45 by Peter Mishra MD) Acute hyperglycemia (Acute) Hyperkalemia (Acute) Hyponatremia (Acute) Generalized weakness (Acute) Cerebral edema (Acute) 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 (Acute ~02/2022) [place] [facility] [place] Neuro/Onc treatments discussed, F/U pending treatment decision [facility] Onc Weakness on right side of face (Acute) Psoriasis (Chronic) Former Cigarette Smoker (Chronic ~2018) quit in 2019 following [facility] Osteoarthritis of hands, bilateral (Acute) Hyperlipidemia (Acute) Hypertension (Chronic) Hyperuricemia without signs of inflammatory arthritis and tophaceous disease (Acute) Other recurrent depressive disorders (Acute 02/01/15) Atypical chest pain (Acute) Vitamin D deficiency (Acute 02/17/15) Restless legs syndrome (Acute 02/08/13) Sleep Study 12/2012: abundant periodic limb movements causing signficant sleep fragmentation; no sleep apnea; NSTEMI (non-ST elevated myocardial infarction) (Acute 06/18/18) Myalgia (Acute 03/27/17) Morbid obesity (Acute 02/17/15) Marijuana use (Acute 09/08/15) Rice Krispie bars w/marijuana Low back pain (Acute 02/01/15) Fatigue (Acute 02/17/15) Environmental allergies (Acute 02/17/15) Edema (Acute 02/17/15) Type 2 diabetes mellitus (Acute 02/17/15) Complete tear of right rotator cuff (Chronic 01/17/18) Chronic kidney disease (CKD) stage G3a/A1, moderately decreased glomerular filtration rate (GFR) between 45-59 mL/min/1.73 square meter and albuminuria creatinine ratio less than 30 mg/g (Acute 02/17/15) Medical History Carpal tunnel syndrome, left (01/17/18) Cataracts, bilateral Mild visually significant cataracts 01/06/21 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 Started aching @ night .. then pain increased, jose with walking. Improved today post CBD oil and recent rest. But tender. Recovery may be delayed 2' walking, standing @ yard sale... T2DM (type 2 diabetes mellitus) Tobacco abuse quit 2017, occasionally since then Surgical History Endoscopic Carpal Tunnel release (03/13/18) Left History of umbilical hernia repair (~2001) Tonsillectomy and adenoidectomy (02/17/1954) Family History Mother Osteoporosis Arthritis Heart disease Stroke Father Diabetes Arthritis Heart disease Emphysema lung Stroke Sister Diabetes Arthritis Heart disease Mental disorder Social History Smoking/Tobacco Use Status: Former Tobacco Use Quit Date: 05/31/18 Tobacco: How many years used: 45 Smoking risk assessment performed?: Yes Alcohol Intake: current Alcohol Intake frequency: a few times a month Drug use: Occasionally Substance use type: does not use Household members: none Housing: apartment Number of Children: 4 Communication Needs: Corrective Lenses What is your relationship status?: Panel score (0-1 are the most socially isolated patients): 0 What type of physical activity do you participate in: none Seatbelt use: always Drive intox or ride w/intox hazmat truck driver: No Working smoke detector in home: Yes Fire extinguisher in home: Yes Carbon monox detector in home: Yes Do you feel safe at home: Yes Do you feel safe in your relationship?: Yes Exam Const General: cooperative and no acute distress HENMT Head: normocephalic and atraumatic Mouth: moist mucous membranes Eyes Conjunctivae: normal conjunctivae Sclera: normal sclerae Neck Neck: trachea midline and supple Resp Auscultation: clear to auscultation bilaterally, no rales, no rhonchi and no wheezes Cardio Rate: regular rate and not tachycardic Rhythm: regular rhythm GI Palpation: soft, not firm, no guarding, no masses, not rigid and nontender Skin General skin exam: no rashes or lesions noted Neuro General: patient alert, patient awake and tone normal Other: Right-sided weakness Extrem General: no edema Psych Appearance: grossly normal Course Vital Signs Vital signs: Vital Signs Temperature 36.1 C L 04/15/22 14:24 Pulse 97 H 04/15/22 14:24 Respiratory Rate 18 04/15/22 14:24 Blood Pressure 135/85 04/15/22 14:24 Pulse Oximetry 95 04/15/22 14:24 Temperature 36.1 C L 04/15/22 14:24 Temperature Source Skin 04/15/22 14:24 Pulse 97 H 04/15/22 14:24 Respiratory Rate 18 04/15/22 14:24 Respiratory Effort 04/15/22 14:33 Blood Pressure 135/85 04/15/22 14:24 Blood Pressure Position Sitting 04/15/22 14:24 Pulse Oximetry 95 04/15/22 14:24 Oxygen Delivery Method Room Air 04/15/22 14:24 Oxygen Flow Rate 0 04/15/22 14:24 Pain Level 0 04/15/22 14:24 PAWSS Have you Been Recently Intoxicated or Drunk Within the Last 30 days?: No Have you Ever Experienced Previous Episodes of Alcohol Withdrawal?: No Have you ever Experienced Withdrawal Seizures?: No Have you ever Experienced Delirium Tremens(DT)s?: No Have you ever undergone Alcohol Rehabilitation Treatment (i.e, inpt ot outpatient treatment programs)?: No Have you ever Experienced Blackouts?: No Have you ever Combined Alcohol with other Downers within the last 90 days?: No Have you ever Combined Alcohol with any other Substance of Abuse during the last 90 days?: No Positive Blood Alcohol level on Presentation? [PCS.BAL]: No Evidence of Increased Autonomic Activity (i.e. HR>120, tremor, sweating, agitation, nausea)?: No Result: 0
[2022-04-15] MEDS: Normal Saline Flush 10 ML SYR IVP ×3 (16:25→21:16)
[2022-04-15 16:50] LABS: Abs Immature Grans 0.14 10^3/uL (0.0-0.06); Absolute Eosinophil Count 0.01 10^3/uL (0.0-0.7); Absolute Lymphocyte Count 0.85 10^3/uL (1.2-3.4); Absolute Monocyte Count 0.42 10^3/uL (0.1-0.8); Basophils % 0.1; Eosinophils % 0.1; HCT 47.2 % (36.0-46.0); HGB 16.1 g/dL (11.2-15.7); Lymphocytes % 5.9; MCH 31.8 pg (27.0-33.0); MCHC 34.1 % (32.0-36.0); MCV 93 fL (80-95); MPV 11.6 fL (8.0-11.0); Monocytes % 2.9; Platelet Count 206 10^3/uL (130-400); RBC 5.07 10^6/uL (3.93-5.22); RDW 13.6 % (11.7-14.6); RDW-SD 45.7 fL; WBC 14.48 10^3/uL (4.4-10.8)
[2022-04-15 16:51] LABS: ALT 71 U/L (14-59); AST 20 U/L (15-37); Albumin 3.4 g/dL (3.4-5.0); Alkaline Phosphatase 93 U/L (46-116); Anion Gap 10.3 mmol/L (3-11); BUN 53 mg/dL (7-18); CO2 27.7 mmol/L (21.0-32.0); CREATININE 1.6 mg/dL (0.55-1.02); Calcium 10.2 mg/dL (8.5-10.1); Chloride 91 mmol/L (98-107); Estimated GFR 31.17 (mL/min/1.73m2); Potassium 5.5 mmol/L (3.5-5.1); Sodium 129 mmol/L (136-145); Total Protein 7.2 g/dL (6.4-8.2)
[2022-04-15 16:54] LABS: Absolute Basophil Count 0.01 10^3/uL (0.0-0.2); Absolute Neutrophil Count 13.03 10^3/uL (1.2-6.7)
[2022-04-15 16:56] LABS: Glucose 603 mg/dL (74-106)
[2022-04-15] MEDS: Normal Saline 500 ML 1000 ML IV (17:54)
--- NOTE | 2022-04-15 18:00 | RT.EKG_ITS ---
APPROVED REPORT Exam: Resting ECG Reason for Exam: hyperkalemia Patient Location: E HR:89 bpm ECG Measurements Heart Rate 89 AXIS MI 150 P 45 QRSd 91 QRS -31 QT 375 T 126 QTc 456 Conclusion Sinus rhythm...normal P axis, V-rate 60- 99 LVH with secondary repolarization abnormality...multi-LVH criteria, abnrm ST-T
[2022-04-15 18:14] LABS: Source Nasal/Nares
[2022-04-15 18:57] LABS: Bilirubin Negative (Negative); Blood Negative (Negative); Clarity Clear (Clear); Glucose >=1000 mg/dL (Negative); Ketones Negative (Negative); Leukocyte Esterase Negative (Negative); Nitrite Negative (Negative); Urobilinogen 0.2 EU/dL (Up TO 0.2); pH 5.5 (5-8)
[2022-04-15 19:27] VITALS: BP 151/75; PULSE 91; RESP 16; O2SAT 96
[2022-04-15] MEDS: Insulin REGULAR-Human 100 UNITS/ML UNIT 10 UNITS SC (19:48)
[2022-04-15 20:35] VITALS: BP 139/86; PULSE 95; RESP 18; TEMP 35.4; O2SAT 96
[2022-04-15 20:36] VITALS: BP 139/86; PULSE 95; RESP 18; TEMP 35.4; O2SAT 95
[2022-04-15 20:37] VITALS: PULSE 94
[2022-04-15] MEDS: Normal Saline 1,000 ML 125 ML IV (21:17)
[2022-04-15 21:40] LABS: COVID-19 PCR Negative (Negative)
[2022-04-15] MEDS: Insulin Aspart 300 UNITS/3 ML PEN 15 UNITS SC (21:42)
[2022-04-15 22:52] LABS: Anion Gap 8.6 mmol/L (3-11); BUN 48 mg/dL (7-18); CO2 27.4 mmol/L (21.0-32.0); CREATININE 1.4 mg/dL (0.55-1.02); Calcium 9.4 mg/dL (8.5-10.1); Chloride 96 mmol/L (98-107); Estimated GFR 36.37 (mL/min/1.73m2); Glucose 446 mg/dL (74-106); Potassium 4.5 mmol/L (3.5-5.1); Sodium 132 mmol/L (136-145)
[2022-04-15] MEDS: Pramipexole 0.5 MG TAB 0.75 MG PO (22:58)
--- NOTE | 2022-04-15 23:08 | NUR.NOTE ---
Nursing Note: Patient having difficulty with regular water coughing and spitting up. Was able to tolerate nectar thick water through a straw with no difficulties. Able to take pills whole with applesauce, also no difficulties
[2022-04-15 23:58] VITALS: BP 122/78; PULSE 94; RESP 18; TEMP 35.6; O2SAT 95
[2022-04-16] VITALS (10 sets, daily range): BP systolic 104–138; BP diastolic 66–88; PULSE 87–105; RESP 16–20; TEMP 35.6–36.7; O2SAT 93–97
[2022-04-16] MEDS: Insulin Aspart 300 UNITS/3 ML PEN SC ×4 (03:29→22:16)
[2022-04-16] MEDS: Normal Saline 1,000 ML 125 ML IV (05:52)
--- NOTE | 2022-04-16 06:47 | HPE_ITS ---
Date of service: 04/15/22 Time of Service: 19:00 Assessment and Plan Assessment and plan (1) Acute hyperglycemia: Status: Acute Assessment and plan: She was given regular insulin in the emergency department. She is admitted to the hospital for treatment of the hyperglycemia without diabetic ketoacidosis. She will be treated with short acting insulin frequently and monitored sugars frequently. (2) Hyperkalemia: Status: Acute Assessment and plan: Her electrocardiogram did not show any abnormalities related to the hyperkalemia. (3) Hyponatremia: Status: Acute Assessment and plan: She will be treated with normal saline and her labs will be rechecked. History of Present Illness History of Present Illness Chief Complaint: weakness, hyperglycemia Narrative: This 76-year-old female came to the emergency department because of weakness and hyperglycemia. She has a history of diabetes mellitus and was recently diagnosed with a left sided glioblastoma. She is set to have an MRI of the brain in 2 days. She has been receiving Decadron for the tumor and will be also set up for radiation and other treatments. She was noted by the home health mitch se to have elevated blood sugar over 500. It is likely the Decadron has caused the increase in her blood sugar. She states that she lives alone but her daughter from [facility] is here to assist her. She was not able to provide much history herself. Her blood sugar was over 600 in the emergency department. She was given regular insulin and IV fluids. I was consulted to admit her to the hospital. Review of Systems Constitutional Constitutional: Denies chills, Denies fever(s), Denies headache(s), Reports lethargy, Denies night sweats and Reports weakness Eyes Eyes: Reports loss of vision ENT Ears, Nose, Mouth, and Throat: Denies headache(s) and Denies neck pain Cardiovascular Cardiovascular: Denies chest pain, Denies lightheadedness, Denies radiating jaw, neck or arm pain, Denies palpitations and Denies dyspnea Respiratory Respiratory: Denies cough, Denies dyspnea and Denies wheezing Gastrointestinal Gastrointestinal: Denies abdominal pain, Denies diarrhea, Denies nausea, Denies vomiting and Denies hematemesis Genitourinary Genitourinary: Denies difficulty voiding, Denies nocturia and Denies urinary incontinence Musculoskeletal Musculoskeletal: Reports muscle weakness and Denies neck pain Neurologic Neurologic: Denies headache(s), Reports loss of vision, Denies convulsions and Reports weakness Endocrine Endocrine: Denies palpitations Allergic/Immunologic Allergic/Immunologic: Denies wheezing PFSH All Active Problems (Updated 04/15/22 @ 18:45 by Peter Mishra MD) Acute hyperglycemia (Acute) Hyperkalemia (Acute) Hyponatremia (Acute) Generalized weakness (Acute) Cerebral edema (Acute) 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 (Acute ~02/2022) [place] [facility] [place] Neuro/Onc treatments discussed, F/U pending treatment decision [facility] On[facility] Weakness on right side of face (Acute) Psoriasis (Chronic) Former Cigarette Smoker (Chronic ~2018) quit in 2018 following [place] Osteoarthritis of hands, bilateral (Acute) Hyperlipidemia (Acute) Hypertension (Chronic) Hyperuricemia without signs of inflammatory arthritis and tophaceous disease (Acute) Other recurrent depressive disorders (Acute 02/01/15) Atypical chest pain (Acute) Vitamin D deficiency (Acute 02/17/15) Restless legs syndrome (Acute 02/08/13) Sleep Study 12/2012: abundant periodic limb movements causing signficant sleep fragmentation; no sleep apnea; NSTEMI (non-ST elevated myocardial infarction) (Acute 06/18/18) Myalgia (Acute 03/27/17) Morbid obesity (Acute 02/17/15) Marijuana use (Acute 09/08/15) Rice Krispie bars w/marijuana Low back pain (Acute 02/01/15) Fatigue (Acute 02/17/15) Environmental allergies (Acute 02/17/15) Edema (Acute 02/17/15) Type 2 diabetes mellitus (Acute 02/17/15) Complete tear of right rotator cuff (Chronic 01/17/18) Chronic kidney disease (CKD) stage G3a/A1, moderately decreased glomerular filtration rate (GFR) between 45-59 mL/min/1.73 square meter and albuminuria creatinine ratio less than 30 mg/g (Acute 02/17/15) Medical History Carpal tunnel syndrome, left (01/17/18) Cataracts, bilateral Mild visually significant cataracts 01/06/21 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 Started aching @ night .. then pain increased, jose with walking. Improved today post CBD oil and recent rest. But tender. Recovery may be delayed 2' walking, standing @ yard sale... T2DM (type 2 diabetes mellitus) Tobacco abuse quit 2017, occasionally since then Surgical History Endoscopic Carpal Tunnel release (03/13/18) Left History of umbilical hernia repair (~2001) Tonsillectomy and adenoidectomy (02/17/1954) Family History Mother Osteoporosis Arthritis Heart disease Stroke Father Diabetes Arthritis Heart disease Emphysema lung Stroke Sister Diabetes Arthritis Heart disease Mental disorder Social History Smoking/Tobacco Use Status: Former Tobacco Use Quit Date: 05/31/18 Tobacco: How many years used: 45 Smoking risk assessment performed?: Yes Alcohol Intake: current Alcohol Intake frequency: a few times a month Drug use: Occasionally Substance use type: does not use Household members: none Housing: apartment Number of Children: 4 Communication Needs: Corrective Lenses What is your relationship status?: Panel score (0-1 are the most socially isolated patients): 0 What type of physical activity do you participate in: none Seatbelt use: always Drive intox or ride w/intox residential recycle driver: No Working smoke detector in home: Yes Fire extinguisher in home: Yes Carbon monox detector in home: Yes Do you feel safe at home: Yes Do you feel safe in your relationship?: Yes Meds Allergies and Home Medications Allergies Allergy/AdvReac Type Severity Reaction Status Date / Time metformin Allergy Severe unknown Verified 04/15/22 14:32 Penicillins Allergy Unknown unknown Verified 04/15/22 14:32 rofecoxib [From Vioxx] Allergy Unknown unknown Verified 04/15/22 14:32 tolmetin sodium Allergy Unknown unknown Verified 04/15/22 14:32 [From Tolectin] marijuana (cannabis) AdvReac Intermediate vomitng Verified 04/15/22 14:32 [marijuana] celecoxib [From Celebrex] AdvReac Unknown kindey Verified 04/15/22 14:32 NSAIDS (Non-Steroidal AdvReac Unknown kidney Verified 04/15/22 14:32 Anti-Inflamma Home Medications Medication Instructions Recorded Confirmed Type nitroglycerin 0.4 mg sublingual 0.4 mg sublingual PRN PRN 02/01/15 04/15/22 History tablet (Nitrostat) blood sugar diagnostic (OneTouch 09/08/15 03/02/22 History Ultra Test strips) melatonin 3 mg tablet 3 mg PO HS PRN 01/07/19 04/15/22 History cholecalciferol (vitamin D3) 50 5,000 unit PO DAILY 03/10/20 04/15/22 History mcg (2,000 unit) capsule (Vitamin D3) allopurinol 300 mg tablet 300 mg PO DAILY #90 tabs 05/24/21 04/15/22 Rx dulaglutide 1.5 mg/0.5 mL 1.5 mg (0.5 mL) subcut QWEEK #12 05/24/21 04/15/22 Rx subcutaneous pen injector SYRGS (Trulicity) loratadine 10 mg tablet 10 mg PO DAILY #90 tabs 05/24/21 04/15/22 Rx bupropion HCl 300 mg 24 hr tablet, 300 mg PO QAM #90 tabs 08/02/21 04/15/22 Rx extended release gabapentin 300 mg capsule 300 mg PO BID PRN muscle spasm 08/23/21 04/15/22 Rx #180 caps glipizide 5 mg tablet, extended 5 mg PO BID #180 tabs 08/23/21 04/15/22 Rx release 24 hr methocarbamol 500 mg tablet 500 mg PO QID PRN pain #60 tabs 08/23/21 04/15/22 Rx triamcinolone acetonide 0.5 % 1 applic topical BID PRN psoriasis 12/28/21 04/15/22 Rx topical ointment #15 grams levetiracetam 500 mg tablet 500 mg PO BID #60 tabs 03/02/22 04/15/22 Rx (Roweepra) dexamethasone 4 mg tablet 8 mg PO BID 04/03/22 04/15/22 History aspirin 81 mg tablet,delayed 81 mg PO DAILY 04/15/22 04/15/22 History release atorvastatin 40 mg tablet 80 mg PO HS 04/15/22 04/15/22 History pantoprazole 20 mg tablet,delayed 40 mg PO DAILY 04/15/22 04/15/22 History release potassium chloride 10 mEq 10 meq PO BID 04/15/22 04/15/22 History tablet,extended release pramipexole 0.5 mg tablet 0.75 mg PO QHS 04/15/22 04/15/22 History sulfamethoxazole 800 1 tab PO DIRECTED 04/15/22 04/15/22 History mg-trimethoprim 160 mg tablet trazodone 50 mg tablet 75 mg PO QHS PRN 04/15/22 04/15/22 History triamterene 37.5 2 cap PO QAM 04/15/22 04/15/22 History mg-hydrochlorothiazide 25 mg capsule Exam Const General: cooperative, comfortable, no acute distress and not lethargic Nutritional Appearance: obese Orientation: alert and oriented x3 Eyes General: appearance normal, both eyes and all related structures Sclera: sclerae normal Neck Neck: normal visual inspection and no lymphadenopathy Resp Auscultation: clear to auscultation bilaterally, no rhonchi and no wheezes Cardio Rate: regular rate Rhythm: regular rhythm Heart Sounds: S1 normal, S2 normal, no gallops and no murmurs GI Inspection: normal to inspection and non-distended Palpation: soft, no hepatosplenomegaly, not firm and nontender Neuro General: patient alert and patient awake Speech: other (at times she has difficulty finding words. ) Extrem General: normal to inspection, no calf tenderness, no clubbing and no cyanosis Results Labs Result diagrams: 04/15/22 16:18 04/15/22 22:35 Labs: Laboratory Results - last 24 hr 04/15/22 04/15/22 04/15/22 16:18 16:18 17:00 WBC 14.48 H RBC 5.07 Hgb 16.1 H Hct 47.2 H MCV 93 MCH 31.8 MCHC 34.1 RDW 13.6 Plt Count 206 MPV 11.6 H Immature Gran % 1.0 Neutrophils % 90.0 Lymphocytes % 5.9 Monocytes % 2.9 Eosinophils % 0.1 Basophils % 0.1 Nucleated RBC % 0.0 Absolute Neutrophils 13.03 H Absolute Lymphocytes 0.85 L Absolute Monocytes 0.42 Absolute Eosinophils 0.01 Absolute Basophils 0.01 Sodium 129 L Potassium 5.5 H Chloride 91 L Carbon Dioxide 27.7 Anion Gap 10.3 BUN 53 H Creatinine 1.6 H Estimated GFR/1.73 m2 31.17 Glucose 603 H* Calcium 10.2 H Total Bilirubin 1.0 AST 20 ALT 71 H Alkaline Phosphatase 93 Total Protein 7.2 Albumin 3.4 Urine Color Urine Clarity Urine pH Ur Specific [place] Urine Protein Urine Ketones Urine Blood Urine Nitrite Urine Bilirubin Urine Urobilinogen Ur Leukocyte Esterase Urine Glucose COVID-19 Source Nasal/Nares SARS-CoV-2 (PCR) Negative 04/15/22 04/15/22 18:36 22:35 WBC RBC Hgb Hct MCV MCH MCHC RDW Plt Count MPV Immature Gran % Neutrophils % Lymphocytes % Monocytes % Eosinophils % Basophils % Nucleated RBC % Absolute Neutrophils Absolute Lymphocytes Absolute Monocytes Absolute Eosinophils Absolute Basophils Sodium 132 L Potassium 4.5 D Chloride 96 L Carbon Dioxide 27.4 Anion Gap 8.6 BUN 48 H Creatinine 1.4 H Estimated GFR/1.73 m2 36.37 Glucose 446 H Calcium 9.4 Total Bilirubin AST ALT Alkaline Phosphatase Total Protein Albumin Urine Color Yellow Urine Clarity Clear Urine pH 5.5 Ur Specific [place] 1.020 Urine Protein Negative Urine Ketones Negative Urine Blood Negative Urine Nitrite Negative Urine Bilirubin Negative Urine Urobilinogen 0.2 Ur Leukocyte Esterase Negative Urine Glucose >=1000 H COVID-19 Source SARS-CoV-2 (PCR) Last Vital Signs Temp 35.6 C L 04/16/22 04:23 Pulse 88 04/16/22 04:27 Resp 18 04/16/22 04:23 BP 124/76 04/16/22 04:23 Pulse Ox 95 04/16/22 04:23 PAWSS Have you Been Recently Intoxicated or Drunk Within the Last 30 days?: No Have you Ever Experienced Previous Episodes of Alcohol Withdrawal?: No Have you ever Experienced Withdrawal Seizures?: No Have you ever Experienced Delirium Tremens(DT)s?: No Have you ever undergone Alcohol Rehabilitation Treatment (i.e, inpt ot outpatient treatment programs)?: No Have you ever Experienced Blackouts?: No Have you ever Combined Alcohol with other Downers within the last 90 days?: No Have you ever Combined Alcohol with any other Substance of Abuse during the last 90 days?: No Positive Blood Alcohol level on Presentation? [PCS.BAL]: No Evidence of Increased Autonomic Activity (i.e. HR>120, tremor, sweating, agitation, nausea)?: No Result: 0
[2022-04-16 06:52] LABS: HCT 42.9 % (36.0-46.0); HGB 14.5 g/dL (11.2-15.7); MCH 31.3 pg (27.0-33.0); MCHC 33.8 % (32.0-36.0); MCV 93 fL (80-95); MPV 11.5 fL (8.0-11.0); Platelet Count 191 10^3/uL (130-400); RBC 4.63 10^6/uL (3.93-5.22); RDW 13.3 % (11.7-14.6); RDW-SD 45.4 fL; WBC 15.95 10^3/uL (4.4-10.8)
[2022-04-16 07:01] LABS: Anion Gap 7.9 mmol/L (3-11); BUN 39 mg/dL (7-18); CO2 29.1 mmol/L (21.0-32.0); CREATININE 1.2 mg/dL (0.55-1.02); Calcium 9.2 mg/dL (8.5-10.1); Chloride 101 mmol/L (98-107); Estimated GFR 43.45 (mL/min/1.73m2); Glucose 167 mg/dL (74-106); Potassium 4.2 mmol/L (3.5-5.1); Sodium 138 mmol/L (136-145)
[2022-04-16] MEDS: Normal Saline Flush 10 ML SYR IVP (08:14)
--- NOTE | 2022-04-16 09:24 | PGE_ITS ---
Date of Service Date of service: 04/16/22 Time of Service: 09:25 Assessment and Plan Assessment and plan (1) Acute hyperglycemia: Status: Acute Assessment and plan: Initially her glucose improved readily w/ couple doses of Novolog (received Humulin R 15 units last night in the ED and another 15 units of Novolog after admission to med/surg floor). However her glucose has been going up today. I will increase her Novolog sliding scale to resistant levels to get her glucose back down. I have added NPH to correct her steroid induced hyperglycemia. The correction factor is 0.5 units per 1 mg of prednisone equivalent. As decadron has a potency of 0.75 mg to prednisone 5 mg, this calculates to 25 units NPH twice a day to bed given w/ her decadron. This dose may need to be adjusted if her hyperglycemia does not respond. 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 Will dc her home after the MRI. Patient may benefit from palliative care consult however this can be obtained as outpatient. Patient needs to follow up w/ her oncologist (4) Hyperkalemia: Status: Resolved Assessment and plan: resolved after hydration. did not require any specific treatment such as Lokelma (5) Hyponatremia: Status: Resolved Assessment and plan: resolved w/ correction of her hyperglycemia Subjective Subjective Interval history since last seen: Patient has high grade glioblastoma 3.5-4 cm in left frontal lobe causing her right sided facial droop, dysarthric speech and workd finding problems along w/ right sided arm/hand and right leg weakness. Initial symptoms began early November w/ fatigue, increased sleepiness, loss of interest, loss of appetite but in late December she was having trouble w/ her balance and with falling and we akness and finally her word retrieval and her facial droop were noted in late January and early February which led initially to CT in early January and finally an MRI of brain on 03/02 which found the left frontal mass. [place] [facility] [place] Azam L[place]. Surgical resection was not performed d/t the involvement of the motor strip affecting the right side and concern that aggressive surgical resection would leave her severly impaired on the right side. Bx confirmed high grade glioblastoma and patient was referred to neuro-oncology and to neuro-radiology. Perioperatively she was started on Keppra and was on a steroid taper that was completed 03/26 but then had worsening right sided weakness after coming off steroids. She has since been on decadron and now presented w/ symptoms of worsening weakness, requiring total assist at home, and was found to have severe hyperglycemia (glucose in the 500's) and hyponatremia (129) and hyperkalemia (5.5) but no AG acidosis and normal renal function. She has known DM2 treated w/ Trulicity and glipizide. She was admitted last night for control of her DM and evaluation and treatment of her weakness, and ambulatory disability. She was scheduled for follow up MRI of her brain tomorrow. She has not yet begun chemotherapy or radiation treatments, that I am aware. Patient was treated w/ Humulin R 15 units while in the ER and a nother 15 units of Novolog last night and was put on moderate dose novolog sliding scale. I have added NPH to her regimen to be given w/ her dexamethasone to cover her steroid induced hyperglycemia. This morning she feels better although her word finding is still severe; she is still weak on the right side w/ dysmetria, and difficulty w/ fine motor control of her right hand. Exam Narrative Exam Narrative: Loyda sitting up in her chair she is alert she is oriented to person knows she is in the hospital knows she is in [place] but cannot give the correct date. Speech is slightly dysarthric she has a lot of word finding disabilities. Takes her a while to get the correct word out. Motor exam she has slight right facial droop she has weakness in her right hand and arm she is able to raise her arm up against gravity and give me some resistance and she has a weak hand grasp in the right hand. She has a lot of dysmetria with finger-nose testing on the right side missing her nose and touching her mouth and unable to touch her index finger to my finger. Left side is much better and shows normal [id number] movement. I did not test her gait ability but we will have physical therapy evaluate her this morning along with nursing. Lungs are clear to auscultation Heart is regular rate and rhythm Telemetry review shows her rhythm to be sinus to sinus tachycardia maximum heart rate 105 no dysrhythmias. Objective Last Vital Signs Temp 35.6 C L 04/16/22 04:23 Pulse 105 H 04/16/22 07:00 Resp 18 04/16/22 04:23 BP 124/76 04/16/22 04:23 Pulse Ox 95 04/16/22 04:23 Laboratory Results - last 24 hr 04/15/22 04/15/22 04/15/22 16:18 16:18 17:00 WBC 14.48 H RBC 5.07 Hgb 16.1 H Hct 47.2 H MCV 93 MCH 31.8 MCHC 34.1 RDW 13.6 Plt Count 206 MPV 11.6 H Immature Gran % 1.0 Neutrophils % 90.0 Lymphocytes % 5.9 Monocytes % 2.9 Eosinophils % 0.1 Basophils % 0.1 Nucleated RBC % 0.0 Absolute Neutrophils 13.03 H Absolute Lymphocytes 0.85 L Absolute Monocytes 0.42 Absolute Eosinophils 0.01 Absolute Basophils 0.01 Sodium 129 L Potassium 5.5 H Chloride 91 L Carbon Dioxide 27.7 Anion Gap 10.3 BUN 53 H Creatinine 1.6 H Estimated GFR/1.73 m2 31.17 Glucose 603 H* Calcium 10.2 H Total Bilirubin 1.0 AST 20 ALT 71 H Alkaline Phosphatase 93 Total Protein 7.2 Albumin 3.4 Urine Color Urine Clarity Urine pH Ur Specific [place] Urine Protein Urine Ketones Urine Blood Urine Nitrite Urine Bilirubin Urine Urobilinogen Ur Leukocyte Esterase Urine Glucose COVID-19 Source Nasal/Nares SARS-CoV-2 (PCR) Negative 04/15/22 04/15/22 04/16/22 18:36 22:35 06:10 WBC 15.95 H RBC 4.63 Hgb 14.5 Hct 42.9 MCV 93 MCH 31.3 MCHC 33.8 RDW 13.3 Plt Count 191 MPV 11.5 H Immature Gran % Neutrophils % Lymphocytes % Monocytes % Eosinophils % Basophils % Nucleated RBC % Absolute Neutrophils Absolute Lymphocytes Absolute Monocytes Absolute Eosinophils Absolute Basophils Sodium 132 L Potassium 4.5 D Chloride 96 L Carbon Dioxide 27.4 Anion Gap 8.6 BUN 48 H Creatinine 1.4 H Estimated GFR/1.73 m2 36.37 Glucose 446 H Calcium 9.4 Total Bilirubin AST ALT Alkaline Phosphatase Total Protein Albumin Urine Color Yellow Urine Clarity Clear Urine pH 5.5 Ur Specific [place] 1.020 Urine Protein Negative Urine Ketones Negative Urine Blood Negative Urine Nitrite Negative Urine Bilirubin Negative Urine Urobilinogen 0.2 Ur Leukocyte Esterase Negative Urine Glucose >=1000 H COVID-19 Source SARS-CoV-2 (PCR) 04/16/22 06:35 WBC RBC Hgb Hct MCV MCH MCHC RDW Plt Count MPV Immature Gran % Neutrophils % Lymphocytes % Monocytes % Eosinophils % Basophils % Nucleated RBC % Absolute Neutrophils Absolute Lymphocytes Absolute Monocytes Absolute Eosinophils Absolute Basophils Sodium 138 Potassium 4.2 Chloride 101 Carbon Dioxide 29.1 Anion Gap 7.9 BUN 39 H Creatinine 1.2 H Estimated GFR/1.73 m2 43.45 Glucose 167 H Calcium 9.2 Total Bilirubin AST ALT Alkaline Phosphatase Total Protein Albumin Urine Color Urine Clarity Urine pH Ur Specific [place] Urine Protein Urine Ketones Urine Blood Urine Nitrite Urine Bilirubin Urine Urobilinogen Ur Leukocyte Esterase Urine Glucose COVID-19 Source SARS-CoV-2 (PCR) PAWSS Have you Been Recently Intoxicated or Drunk Within the Last 30 days?: No Have you Ever Experienced Previous Episodes of Alcohol Withdrawal?: No Have you ever Experienced Withdrawal Seizures?: No Have you ever Experienced Delirium Tremens(DT)s?: No Have you ever undergone Alcohol Rehabilitation Treatment (i.e, inpt ot outpatient treatment programs)?: No Have you ever Experienced Blackouts?: No Have you ever Combined Alcohol with other Downers within the last 90 days?: No Have you ever Combined Alcohol with any other Substance of Abuse during the last 90 days?: No Positive Blood Alcohol level on Presentation? [PCS.BAL]: No Evidence of Increased Autonomic Activity (i.e. HR>120, tremor, sweating, agita tion, nausea)?: No Result: 0
[2022-04-16] MEDS: Aspirin 81 MG CHEW PO (09:47)
[2022-04-16] MEDS: Pantoprazole 40 MG TABCR PO (09:47)
[2022-04-16] MEDS: levETIRAcetam 500 MG TAB PO ×2 (09:47→20:08)
[2022-04-16] MEDS: Allopurinol 300 MG TAB PO (09:47)
[2022-04-16] MEDS: Loratidine 10 MG TAB PO (09:47)
[2022-04-16] MEDS: buPROPion-XL 150 MG TABCR 300 MG PO (09:47)
[2022-04-16] MEDS: Dexamethasone 4 MG TAB 8 MG PO ×2 (09:48→20:08)
[2022-04-16] MEDS: Insulin NPH-Human 300 UNITS/3 ML PEN 25 UNIT SC (10:28)
--- NOTE | 2022-04-16 15:54 | INITIAL_ITS ---
- If Service Date Differs Date of service: 04/16/22 Time of Service: 15:54 Care Management Initial Assess REASON FOR HOSPITALIZATION:: hyperglycemia, hyponatremia, hyperkalemia PAST MEDICAL HISTORY/PAST SURGICAL HISTORY:: All Active Problems. Acute hyperglycemia (Acute). Hyperkalemia (Acute). Hyponatremia (Acute). Generalized weakness (Acute). Cerebral edema (Acute). 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 03/21/22 [facility] [place] 03/30/22 Neuro/Onc treatments discussed, F/U pending treatment decision. [facility] [place] Onc. Weakness on right side of face (Acute). Psoriasis (Chronic). Former Cigarette Smoker (Chronic ~2018). quit in 2019 following [place]. Osteoarthritis of hands, bilateral (Acute). Hyperlipidemia (Acute). Hypertension (Chronic). Hyperuricemia without signs of inflammatory arthritis and tophaceous disease (Acute). Other recurrent depressive disorders (Acute 02/01/15). Atypical chest pain (Acute). Vitamin D deficiency (Acute 02/17/15). Restless legs syndrome (Acute 02/08/13). Sleep Study 12/2012: abundant periodic limb movements causing signficant sleep fragmentation; no sleep apnea;. NSTEMI (non-ST elevated myocardial infarction) (Acute 06/18/18). Myalgia (Acute 03/27/17). Morbid obesity (Acute 02/17/15). Marijuana use (Acute 09/08/15). Rice Krispie bars w/marijuana. Low back pain (Acute 02/01/15). Fatigue (Acute 02/17/15). Environmental allergies (Acute 02/17/15). Edema (Acute 02/17/15). Type 2 diabetes mellitus (Acute 02/17/15). Complete tear of right rotator cuff (Chronic 01/17/18). Chronic kidney disease (CKD) stage G3a/A1, moderately decreased glomerular filtration rate (GFR) between 45- 59 mL/min/1.73 square meter and albuminuria creatinine ratio less than 30 mg/g (Acute 02/17/15). Medical History. Carpal tunnel syndrome, left (01/17/18). Cataracts, bilateral. Mild visually significant cataracts 01/06/21. Disorder of tongue (02/01/15). Hip pain (02/01/15). Insomnia (02/17/15). Left medial knee pain (01/2019). Fell in the beginning of January, w/o clear twisting/injury of knee, but knee started hurting 2 weeks later. Started aching @ night .. then pain increased, jose with walking. Improved today post CBD oil and recent rest. But tender. Recovery may be delayed 2' walking, standing @ yard sale... T2DM (type 2 diabetes mellitus). Tobacco abuse. quit 2017, occasionally since then. Surgical History. Endoscopic Carpal Tunnel release (03/13/18). Left. History of umbilical hernia repair (~2001). Tonsillectomy and adenoidectomy (02/17/1954) PREVIOUS FUNCTIONAL STATUS/SOCIAL/FAMILY SUPPORTS:: Sindy lives in [facility] with her sister, Ines. She has two daughters, who are supportive (shared DPOAs). Recently, due to medical concerns, her daughter Yary has been staying with her, renting space at [facility]. Yary reports that Sindy has been declining since , which was the first time family noticed a change in her. Yary plans to stay with and care for Sindy while she is receiving treatment for a glioblastoma, which was recently diagnosed. CURRENT FUNCTIONAL STATUS:: Sindy was sitting up in a chair when CM met with her. Her daughter was in the room visiting. Sindy was not able to communicate well, as she has been noted to have word finding trouble, but Yary, her daughter, was able to provide information about Sindy's history and the current plan. She stated that per MD, Sindy will have an MRI of her brain tomorrow, which will help determine the plan. Yary stated that she will be bringing Sindy back to the [facility] house, where she is renting a space to care for her mother during her cancer treatments. Yary stated that her and her sister are shared DPOA's, and she sent paperwork, which CM will attach to her chart. Her blood sugars are being closely monitored. CM will continue to follow. ADVANCE DIRECTIVES:: Health Care Directive and DPOA provided, to be updated to chart. Has patient been provided with info about the portal/API?: Yes Did the patient sign up for the portal?: Yes (active) CODE STATUS:: Full Code INSURANCE COVERAGE / FINANCIAL ISSUES:: [facility]/ for life CURRENT HOME/COMMUNITY SERVICES/EQUIPMENT:: Sindy's daughter is currently caring for her time motion analyst, and she has HH services. PRIMARY CARE PHYSICIAN:: Rosalie Joya POTENTIAL DISCHARGE NEEDS:: Evaluations for further needs, follow up appointments. PATIENT/FAMILY EDUCATION NEEDS:: Review discharge instructions and limitations, discussion of self care needs including ask me three and goals of care. ANTICIPATED BARRIERS TO DISCHARGE:: None. TRANSPORTATION:: Via private vehicle by her daughter. PLAN:: Anticipate Sindy will return home with her daughter when she is medically cleared with a resumption of HH services. She will follow up with her PCP and discharge plan of care. CM will continue to follow.
[2022-04-16 16:14] LABS: Glucose 340 mg/dL (74-106)
[2022-04-16] MEDS: Insulin Aspart 300 UNITS/3 ML PEN 8 UNITS SC (19:01)
[2022-04-16] MEDS: Atorvastatin 40 MG TAB 80 MG PO (20:08)
[2022-04-16] MEDS: Insulin NPH-Human 300 UNITS/3 ML PEN 35 UNIT SC (20:30)
[2022-04-16] MEDS: Pramipexole 0.5 MG TAB 0.75 MG PO (22:16)
--- NOTE | 2022-04-17 | DI.CT_ITS ---
Exam(s) CT HEAD WO EXAM: CT HEAD WO CLINICAL HISTORY: cerebral hemorrhage. TECHNIQUE: Imaging Protocol: Axial computed tomography images with coronal and sagittal reformatted images were created and reviewed COMPARISON: CT CT HEAD WO from 01/30/2022 MR MR BRAIN WO/W from 03/02/2022 MR MR BRAIN WO/W from 04/17/2022 FINDINGS: Ventricles and Extra axial spaces: Normal in size and morphology for the patient's age. Hemorrhage: There is now focus of hyperdense material at the anterior lateral aspect of the left haim etal mass suspicious for hemorrhage. The MRI also shows areas of decreased signal on the gradient im ages suggesting prior hemorrhage. The left parietal mass also now shows a larger fluid attenuation l evel compared to the prior MRIs and CT scans. This may suggest increased necrosis. There is a incre ase in the degree of sulcal effacement and mass effect on the adjacent left lateral ventricle. There is no midline shift or mass effect. Cerebral parenchyma: There are areas of decreased attenuation in the white matter consistent with sma ll vessel ischemic disease. Midline shift: None. Brainstem/Cerebellum: Normal. Calvarium: Normal. Visualized Paranasal sinuses/Mastoids: Clear. Soft Tissues: Unremarkable. IMPRESSION: 1. Increased necrosis of the left parietal mass since January and February of 2002. There is also increased sulcal effacement and mass effect on the adjacent left lateral ventricle. There is also now focus o f hyperdense material in the anterolateral aspect of the mass suggesting interval hemorrhage. The MR I performed or earlier in the day shows evidence of old hemorrhage on the gradient images. The mass is shown interval increase in size best appreciated on the MRI examination from today. 2. Findings of small vessel ischemic disease. RADIATION DOSE DELIVERED: 698.99mGy.cm Total DLP DATA REPOSITORY: All CT scans at this facility are submitted to the National Radiology Data Registry (NRDR) Dose Index Registry (DIR) with the [employer] (ACR). RADIATION OPTIMIZATION: All CT scans at this facility use at least one of these dose optimization te chniques: automated exposure control; mA and/or kV adjustment per patient size (includes targeted exa ms where dose is matched to clinical indication); or iterative reconstruction.
--- NOTE | 2022-04-17 | DI.MRI_ITS ---
Exam(s) MR BRAIN WO/W EXAM: MR BRAIN WO/W CLINICAL HISTORY: follow up glioblastoma TECHNIQUE: Multiplanar multisequence MRI of the brain was performed. CONTRAST MATERIAL: IV Contrast: 20 mL of Dotarem contrast administered. COMPARISON: CT CT HEAD CERVICAL SPINE WO from 12/14/[address] HEAD WO from 01/30/2022 MR MR BRAIN WO/W from 03/02/2022 FINDINGS: VENTRICLES AND EXTRA AXIAL SPACES: Normal in size and morphology for the patient's age. HEMORRHAGE: There are areas consistent with interval hemorrhage is within the mass since 03/02/2022. P lease see below. CEREBRAL PARENCHYMA: There are now areas of restricted diffusion associated with the mass. Please se e below. There are areas of hyperintense signal seen in the white matter on the T2 and FLAIR images most consistent with small vessel ischemic disease. MIDLINE SHIFT: None. BRAINSTEM/CEREBELLUM: Normal. CALVARIUM: Normal. ENHANCEMENT: The left parietal mass has shown some interval increase in size measuring 4.2 x 4.2 cm c ompared to 3.8 x 3.7 cm. It also now shows evidence of hemorrhage. There is also now an increase in the sulcal effacement associated with the mass and the mass effect on the adjacent left lateral vent ricle. There is no midline shift. Mild increase in the surrounding edema is also noted. VISUALIZED PARANASAL SINUSES/MASTOIDS: Clear. [place]: Normal flow void. PITUITARY GLAND: Unremarkable. OTHER FINDINGS: IMPRESSION: Interval increase in size of the left parietal mass which now exhibits evidence of hemorrhage, sulcal effacement and mass effect on the adjacent left lateral ventricle. There is no midline shift. DATA REPOSITORY:
[2022-04-17 03:15] VITALS: BP 125/74; PULSE 89; RESP 16; TEMP 36.2; O2SAT 96
[2022-04-17 07:33] LABS: Anion Gap 7.8 mmol/L (3-11); BUN 34 mg/dL (7-18); CO2 27.2 mmol/L (21.0-32.0); Chloride 97 mmol/L (98-107); Estimated GFR 53.62 (mL/min/1.73m2); Glucose 154 mg/dL (74-106); Potassium 3.8 mmol/L (3.5-5.1); Sodium 132 mmol/L (136-145)
[2022-04-17 07:48] VITALS: BP 129/77; PULSE 92; RESP 17; TEMP 36.4; O2SAT 93
[2022-04-17 07:50] VITALS: PULSE 82
[2022-04-17] MEDS: diazePAM 2 MG TAB PO (08:17)
[2022-04-17] MEDS: buPROPion-XL 150 MG TABCR 300 MG PO (08:17)
[2022-04-17] MEDS: Dexamethasone 4 MG TAB 8 MG PO (08:17)
[2022-04-17] MEDS: Loratidine 10 MG TAB PO (08:17)
[2022-04-17] MEDS: Pantoprazole 40 MG TABCR PO (08:17)
[2022-04-17] MEDS: Insulin NPH-Human 300 UNITS/3 ML PEN 35 UNIT SC ×2 (08:18→19:31)
[2022-04-17] MEDS: Cholecalciferol (Vitamin D3) 1,000 UNIT TAB 5000 UNITS PO (08:18)
[2022-04-17] MEDS: Allopurinol 300 MG TAB PO (08:18)
[2022-04-17] MEDS: Aspirin 81 MG CHEW PO (08:18)
[2022-04-17] MEDS: levETIRAcetam 500 MG TAB PO ×2 (08:18→19:33)
[2022-04-17] MEDS: Insulin Aspart 300 UNITS/3 ML PEN SC ×4 (08:20→22:33)
[2022-04-17] MEDS: Normal Saline Flush 10 ML SYR IVP ×2 (10:44→19:24)
[2022-04-17] MEDS: Gadoterate meglumine 20 ML SYRINGE IVP (10:45)
--- NOTE | 2022-04-17 11:47 | IN_ITS ---
PT Notes Visit Reasons: Hyperglycemia,Hyponatremia,Hyperkalemia,Generalize Inpatient Physical Therapy Evaluation Date: 04/17/2022 Referring Doctor: Orion Lyn MD PT Orders: PT CONSULT: Fall safety assessment Precautions: Fall risk Patient Profile/Admitting Diagnosis: 76-year-old female with glioblastoma recently admitted with hyperglycemia, hyperkalemia, and hyponatremia. PMHX: Review of Systems Constitutional Constitutional: Denies chills, Denies fever(s), Denies headache(s), Reports lethargy, Denies night sweats and Reports weakness Eyes Eyes: Reports loss of vision ENT Ears, Nose, Mouth, and Throat: Denies headache(s) and Denies neck pain Cardiovascular Cardiovascular: Denies chest pain, Denies lightheadedness, Denies radiating jaw, neck or arm pain, Denies palpitations and Denies dyspnea Respiratory Respiratory: Denies cough, Denies dyspnea and Denies wheezing Gastrointestinal Gastrointestinal: Denies abdominal pain, Denies diarrhea, Denies nausea, Denies vomiting and Denies hematemesis Genitourinary Genitourinary: Denies difficulty voiding, Denies nocturia and Denies urinary incontinence Musculoskeletal Musculoskeletal: Reports muscle weakness and Denies neck pain Neurologic Neurologic: Denies headache(s), Reports loss of vision, Denies convulsions and Reports weakness Endocrine Endocrine: Denies palpitations Allergic/Immunologic Allergic/Immunologic: Denies wheezing PFSH All Active Problems?(Updated 04/15/22 @ 18:45 by Peter Mishra MD) Acute hyperglycemia (Acute) Hyperkalemia (Acute) Hyponatremia (Acute) Generalized weakness (Acute) Cerebral edema (Acute) 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 [facility] [place] 03/30/22 Neuro/Onc treatments discussed, F/U pending treatment decision [facility] OncWeakness on right side of face (Acute) Psoriasis (Chronic) Former Cigarette Smoker (Chronic ~2018) quit in 2019 following MIOsteoarthritis of hands, bilateral (Acute) Hyperlipidemia (Acute) Hypertension (Chronic) Hyperuricemia without signs of inflammatory arthritis and tophaceous disease (Acute) Other recurrent depressive disorders (Acute 02/01/15) Atypical chest pain (Acute) Vitamin D deficiency (Acute 02/17/15) Restless legs syndrome (Acute 02/08/13) Sleep Study 12/2012: abundant periodic limb movements causing signficant sleep fragmentation; no sleep apnea; NSTEMI (non-ST elevated myocardial infarction) (Acute 06/18/18) Myalgia (Acute 03/27/17) Morbid obesity (Acute 02/17/15) Marijuana use (Acute 09/08/15) Rice Krispie bars w/marijuana Low back pain (Acute 02/01/15) Fatigue (Acute 02/17/15) Environmental allergies (Acute 02/17/15) Edema (Acute 02/17/15) Type 2 diabetes mellitus (Acute 02/17/15) Complete tear of right rotator cuff (Chronic 01/17/18) Chronic kidney disease (CKD) stage G3a/A1, moderately decreased glomerular filtration rate (GFR) between 45-59 mL/min/1.73 square meter and albuminuria creatinine ratio less than 30 mg/g (Acute 02/17/15) Medical History? Carpal tunnel syndrome, left (01/17/18) Cataracts, bilateral Mild visually significant cataracts 01/06/21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 Started aching @ night .. then pain increased, jose with walking. Improved today post CBD oil and recent rest. But tender. Recovery may be delayed 2' walking, standing @ yard sale...T2DM (type 2 diabetes mellitus) Tobacco abuse quit 2017, occasionally since then Surgical History? Endoscopic Carpal Tunnel release (03/13/18) LeftHistory of umbilical hernia repair (~2001) Tonsillectomy and adenoidectomy (02/17/1954) Social History/Home Situation: Patient lives with her sister and is cared for at also by her 2 daughters Current Functional Limitations: Requires assistance with all ADLs Equipment Owned/DME: Walker Subjective: Pleasant, cooperative and follows simple commands. No pain behavior noted Objective: General Observation: Mildly lethargic Mental Status: Disoriented x3 Pain: No complaints offered Vital Signs: Her pulse after activity was 107 bpm and O2 sat 100% ROM: Right Upper Extremity: She has difficulty actively lifting her right upper extremity overhead, and active assistively is limited to approximately 100 degrees. Her active left shoulder flexion is 105 degrees, and remaining articular structures show good functional range of motion without pain on movement Strength: Her strength is generally rated 4/5 except her right supraspinatus which is 1- 2/5 Neuro: Reflexes are symmetrical, has full motor control. Sensation was difficult to assess due to her mental status Bed Mobility/Transfers: Patient required minimal assist with assuming the supine to sitting to standing positions and vice versa Gait: Ambulated approximately 10 feet with a FWW and minimal contact guarding. She is able to stand without the walker but with standby supervision Balance: Static Sitting: Good Dynamic Sitting: Good Static Standing: Good Dynamic Standind: Fair Special Tests: Mobility Limitations Standardized Measure [facility] AM-PAC 6 clicks Basic Mobility Inpatient Short Form: Raw Score: 14 standardized Score: 2.95 CMS Score: 61.29% Informed Consent/Education: Patient instructed in purpose of PT consult and plan of care. Assessment: Patient is a 76year old female referred to physical therapy services with the diagnosis of hyperglycemia/hyperkalemia and hyponatremia. Patient presents with clinical signs and symptoms consistent with diagnosis. She also has an apparent chronic cuff tear particular the supraspinatus component. Her acute problems are demonstrated by the following impairment level findings: Impaired mental status disorientation, generalized weakness. Impairments are contributing to the following functional limitations: Mild assistance with bed mobility, and gait stability Patient is assessed as a High 23059 complexity based on the following: History: See comorbidities and social history Examination: See above for functional limitations and impairments Presentation: Unstable Decision Making: High complexity based on her clinical findings Goals: Goals X1 week 1. Supine-Sit independent 2. Sit-Supine independent 3. Sit-Stand independent 4. Stand-Sit independent 5. Bed-Chair independent 6. Chair-Bed independent 7. Gait ambulation with a FWW with minimal contact guarding for greater than 100 feet 8. Stairs ascend and descend 3 steps Plan of Care/Treatment Plan: 1-2x/day, 7 days/week x 1 week. Plan of care has been reviewed with the CORONARY CARE UNIT NURSE providing the service under Physical Therapy direction. Initiate Physical Therapy intervention for strengthening, bed mobility, transfers, gait, stairs, balance training, use of assistive device. DISCHARGE RECOMMENDATIONS: Home with services [specify] Home health services TREATMENT CODE/TIME: 9716
--- NOTE | 2022-04-17 13:29 | PGE_ITS ---
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 I spoke with the neurosurgical fellow at [facility] who recommended that we get a CT scan of the head and have that sent to [facility] [place] so the neurosurgical fellow can compare to their last CAT scan. She indicated that there is no evidence of cerebral midline shift and that there is no evidence for acute neurosurgical intervention. She felt that a CT scan would enable her to compare to their last CAT scan and get a better idea as to how much changes been in the hemorrhage. After the patient underwent a CT scan of the head this afternoon I called [facility] [place] [place] back because I had not heard from the neurosurgical fellow. I spoke with the neurosurgical nurse practitioner on duty who reviewed the CT scan and then discussed it with her attending Dr. Gannon. They felt that there was really no increase and actually some decrease in the amount of hemorrhage compared to the last study at [facility] [place] in February. She indicated that there is no plans for neurosurgical intervention but Dr. Gannon did recommend increasing the patient's Decadron giving her 10 mg IV tonight and putting her on 6 mg every 6 hours and that this may help with the edema and may improve her right-sided weakness. Professional time spent interviewing and examining patient, discussion of goals of care with hospital team (care management, nursing and consulting professionals) was 60 minutes. (2) Acute hyperglycemia: Status: Acute Assessment and plan: Blood sugars are rising again With her morning sugars starting at 177 and rising up to 320 this evening. She is currently on NovoLog resistant sliding scale along with NPH which was dosed according to her dexamethasone. She is getting 35 units twice a day. Since I am going to increase her Decadron to 6 mg 4 times a day per Dr. Gannon recommendation I will adjust her NPH accordingly to 30 units 3 times a day and I will add 15 units of Lantus at night. Tomorrow morning I will start her on some Jardiance. (3) T2DM (type 2 diabetes mellitus): Subjective Subjective Interval history since last seen: Patient was seen this morning along with palliative care nurse practitioner. Patient seems to be more alert she is oriented although she is still having significant expressive aphasia with word finding problems. I discussed her MRI scan with the patient and her daughter who was present. Her MRI scan Demonstrates interval increase in the size of her left parietal mass which now shows evidence of hemorrhage and sulcal effacement and mass-effect on the adjacent left lateral ventricle but no midline shift. I indicated to the patient and her daughter that I had consulted with [facility] [place] [place] neurosurgery fellow who recommended discontinuation of her aspirin. Her daughter indicated to me that the patient had not on aspirin at home even though this was listed as part of her home medications. I have since stopped any aspirin that she is receiving here in the hospital. I explained to the daughter and the patient that we are going get a CT scan of her head so that the neurosurgical fellow can compare there previous CAT scan to our CAT scan. Exam Narrative Exam Narrative: Patient is alert she seems to be appropriate following commands. She has slight right facial droop she has expressive aphasia which is unchanged. Lungs are clear to auscultation Heart is regular rate and rhythm Abdomen soft and nontender Neuro exam reveals continued right-sided deficits with clumsiness in her right hand decreased motor strength in her right arm although she is able to hold it up against gravity and she is able to grasp my right hand but the right hand grasp is weaker than the left. She is unable to hold the right leg up against gravity. She is able to push with her right foot against my hand. Left leg she also has trouble lifting it up against gravity but was able to hold it up with some drift. Overall she has generalized weakness. Physical therapy is recommending short-term placement in a SNF for continued rehab. Patient is reluctantly agreeable to this. Objective Last Vital Signs Temp 36.4 C L 04/17/22 07:48 Pulse 82 04/17/22 07:50 Resp 17 04/17/22 07:48 BP 129/77 04/17/22 07:48 Pulse Ox 93 04/17/22 07:48 Laboratory Results - last 24 hr 04/16/22 04/17/22 15:55 06:18 Sodium 132 L Potassium 3.8 Chloride 97 L Carbon Dioxide 27.2 Anion Gap 7.8 BUN 34 H Creatinine 1.0 Estimated GFR/1.73 m2 53.62 Glucose 340 H 154 H Calcium 9.0 Reviewed Pertinent PMH: Yes Objective Narrative Objective Narrative: MRI of the brain with and without contrast FINDINGS: VENTRICLES AND EXTRA AXIAL SPACES: Normal in size and morphology for the patient's age. HEMORRHAGE: There are areas consistent with interval hemorrhage is within the mass since 03/02/2022.? Please see below.? CEREBRAL PARENCHYMA: There are now areas of restricted diffusion associated with the mass.? Please see below.? There are areas of hyperintense signal seen in the white matter on the T2 and FLAIR images most consistent with small vessel ischemic disease.? MIDLINE SHIFT: None. BRAINSTEM/CEREBELLUM: Normal. CALVARIUM: Normal. ENHANCEMENT: The left parietal mass has shown some interval increase in size measuring 4.2 x 4.2 cm compared to 3.8 x 3.7 cm.? It also now shows evidence of hemorrhage.? There is also now an increase in the sulcal effacement associated with the mass and the mass effect on the adjacent left lateral ventricle.? There is no midline shift.? Mild increase in the surrounding edema is also noted.? VISUALIZED PARANASAL SINUSES/MASTOIDS: Clear. [place]: Normal flow void. PITUITARY GLAND: Unremarkable. OTHER FINDINGS:? IMPRESSION: Interval increase in size of the left parietal mass which now exhibits evidence of hemorrhage, sulcal effacement and mass effect on the adjacent left lateral ventricle.? There is no midline shift PAWSS Have you Been Recently Intoxicated or Drunk Within the Last 30 days?: No Have you Ever Experienced Previous Episodes of Alcohol Withdrawal?: No Have you ever Experienced Withdrawal Seizures?: No Have you ever Experienced Delirium Tremens(DT)s?: No Have you ever undergone Alcohol Rehabilitation Treatment (i.e, inpt ot outpatient treatment programs)?: No Have you ever Experienced Blackouts?: No Have you ever Combined Alcohol with other Downers within the last 90 days?: No Have you ever Combined Alcohol with any other Substance of Abuse during the last 90 days?: No Positive Blood Alcohol level on Presentation? [PCS.BAL]: No Evidence of Increased Autonomic Activity (i.e. HR>120, tremor, sweating, agitation, nausea)?: No Result: 0
[2022-04-17 15:33] LABS: Prothrombin Time 10.4 sec (9.3-11.0)
--- NOTE | 2022-04-17 15:49 | PT.INTREAT ---
Date of service: 04/17/22 Time of Service: 12:58 PT Notes Visit Reasons: Hyperglycemia,Hyponatremia,Hyperkalemia,Generalize Inpatient Physical Therapy Treatment Note [facility] Date: 04/17/2022 PRECAUTIONS: Fall, Activity as tolerated SUBJECTIVE: Sindy is pleasant and agreeable to participating in PT. She reports that she is feeling tired today. OBJECTIVE: PAIN: No c/o pain BED MOBILITY/TRANSFERS Sit-supine: Mod A of B LE with HOB flat Sit-stand: Min A Stand-sit: Min A Bed-Chair: Min A Chair-bed: Min A GAIT Assistive Device: FWW Weight bearing: Full Assist: Min A Distance: 3 steps + 6 steps + 3 steps x2 Deviation: Difficulty initiating B foot advancement, LOB x1 with Max A for recovery into a seated position THEREX: Patient was instructed in a LE strengthening program, completed in a seated position, to include: ankle pumps, heel raises, LAQ, hip flexion, and hip abduction. TOILETING: Patient toileted with assist on the commode ASSESSMENT: Patient tolerated session well, although with complaint of increased fatigue. She reports feelings of increased weakness compared to her baseline. She requires Min-Mod assist for transfers and bed mobility. PLAN: Continue with global strengthening and general conditioning for improved mobility and activity tolerance. TREATMENT CODE/TIME: 31 minutes; [id number] x2 (12:58)
--- NOTE | 2022-04-17 15:50 | W.PALLCONSUL ---
Date of service: 04/17/22 Time of Service: 14:30 History of Present Illness Narrative: Ms. Callahan is a 76 y/o F currently inpt at [facility] 2/2 hyperglycemia and weakness; recently dx w/LS glioblastoma; PMHx sig for DM; present today pt and daughter/DPSHANTE Pringle, report from [facility] course: presented to [facility] ED on 04/15/22 w/CC hyperglycemia; transitioned inpatient for glucose monitoring and adjustments; MRI of brain today w/hemorrhage, consult w/[facility] team recommend f/u CT and labs to compare to their previous scans; plan for discharge to SNF pending work up Report patient is doing better since hospital presentation on the , had a few readings where blood glucose was unable to read, increase in Decadron occurred over the weekend at same time with increased blood sugars, home health nurse came in and organize transfer to hospital. Patient has been transient since diagnosis, was previously living with sister in [facility], biopsy on 03/13 discharged to rehab at [facility] for continued observation and weakness, discharge home to family where patient spent some time at [facility] returned to [place] and had been staying at [facility] with family caregivers, prior to presentation to hospital. Daughter reports both daughters working together to monitor mom's goals of care, location, and early admission to hospice as eligible; goal would be to return home to [place] for summer months, unsure of home in [place] availability through winter. Would need a hospital bed upon returning to residential, has a commode, may benefit from toilet seat rise Report noticeable decline since , worsening since discharge from rehab on 03/25. Was to start palliative chem/radiation therapies next week, for a 3 wk cycle; canceled at this time, pending f/u w/Dr. Nolan after review of latest scans; ordered patient with decreased speech, ongoing, will confuse words and or not be able to express self, however it is remaining happy appears in no pain or distress, able to articulate needs appropriately with children daughter reports pt would not want heroic interventions, no prolonging interventions, preference for allowing a natural ; unfortunately pt was unavailable to participate in conversation d/t repeat CT scan scheduled, preference to continue f/u on CODE status at future visits; emailed advanced directive to case management yesterday, unfortunately field nurse case manager is not available at this time for review Assessment and Plan Assessment and plan (1) Acute hyperglycemia: Status: Acute Assessment and plan: improving, appropriate for discharge (2) Generalized weakness: Status: Acute Assessment and plan: d/c to SNF for ongoing rehab if returns to surrogate home, will need hospital bed, appropriate toilet [facility] active referral (3) 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 (Acute ~02/2022) 03/21/22 [facility] Neurosurgery 03/30/22 Neuro/Onc treatments discussed, F/U pending treatment decision [facility] Onc Weakness on right side of face (Acute) Psoriasis (Chronic) Former Cigarette Smoker (Chronic ~2018) quit in 2019 following [place] Osteoarthritis of hands, bilateral (Acute) Hyperlipidemia (Acute) Hypertension (Chronic) Hyperuricemia without signs of inflammatory arthritis and tophaceous disease (Acute) Other recurrent depressive disorders (Acute 02/01/15) Vitamin D deficiency (Acute 02/17/15) Restless legs syndrome (Acute 02/08/13) Sleep Study 12/2012: abundant periodic limb movements causing signficant sleep fragmentation; no sleep apnea; Myalgia (Acute 03/27/17) Morbid obesity (Acute 02/17/15) Marijuana use (Acute 09/08/15) Rice Krispie bars w/marijuana Low back pain (Acute 02/01/15) Fatigue (Acute 02/17/15) Environmental allergies (Acute 02/17/15) Edema (Acute 02/17/15) Type 2 diabetes mellitus (Acute 02/17/15) Complete tear of right rotator cuff (Chronic 01/17/18) Chronic kidney disease (CKD) stage G3a/A1, moderately decreased glomerular filtration rate (GFR) between 45-59 mL/min/1.73 square meter and albuminuria creatinine ratio less than 30 mg/g (Acute 02/17/15) Medical History (Updated 04/17/22 @ 16:21 by Valarie Vines NP) Carpal tunnel syndrome, left (01/17/18) Cataracts, bilateral Mild visually significant cataracts 01/06/21 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 Started aching @ night .. then pain increased, jose with walking. Improved today post CBD oil and recent rest. But tender. Recovery may be delayed 2' walking, standing @ yard sale... NSTEMI (non-ST elevated myocardial infarction) (06/18/18) T2DM (type 2 diabetes mellitus) Tobacco abuse quit 2017, occasionally since then Surgical History Endoscopic Carpal Tunnel release (03/13/18) Left History of umbilical hernia repair (~2001) Tonsillectomy and adenoidectomy (02/17/1954) Family History Mother Osteoporosis Arthritis Heart disease Stroke Father Diabetes Arthritis Heart disease Emphysema lung Stroke Sister Diabetes Arthritis Heart disease Mental disorder Social History Smoking/Tobacco Use Status: Former Tobacco Use Quit Date: 05/31/18 Tobacco: How many years used: 45 Smoking risk assessment performed?: Yes Alcohol Intake: current Alcohol Intake frequency: a few times a month Drug use: Occasionally Substance use type: does not use Household members: none Housing: apartment Number of Children: 4 Communication Needs: Corrective Lenses What is your relationship status?: Panel score (0-1 are the most socially isolated patients): 0 What type of physical activity do you participate in: none Seatbelt use: always Drive intox or ride w/intox dedicated intermodal truck driver: No Working smoke detector in home: Yes Fire extinguisher in home: Yes Carbon monox detector in home: Yes Do you feel safe at home: Yes Do you feel safe in your relationship?: Yes Exam Const General: cooperative, comfortable and no acute distress Nutritional Appearance: average body habitus [facility] Head: normal to inspection, normocephalic and atraumatic Ears: hearing grossly normal bilaterally Resp Effort & Inspection: normal respiratory effort, no audible wheezes and no cough Skin General skin exam: no rashes or lesions noted Psych Speech and Movement: pressured speech and slurred speech Mood: congruent mood (smiles/laughs appropriately) Affect: normal affect Attitude: cooperative Other: pt follows conversation as able, able to answer w/yes or no pt unable to participate in full visit Results Last Vital Signs Temp 97.5 F L 04/17/22 07:48 Pulse 82 04/17/22 07:50 Resp 17 04/17/22 07:48 BP 129/77 04/17/22 07:48 Pulse Ox 93 04/17/22 07:48 Labs Result diagrams: 04/16/22 06:10 04/17/22 06:18 Labs: Laboratory Results - last 24 hr 04/16/22 04/17/22 15:55 06:18 Sodium 132 L Potassium 3.8 Chloride 97 L Carbon Dioxide 27.2 Anion Gap 7.8 BUN 34 H Creatinine 1.0 Estimated GFR/1.73 m2 53.62 Glucose 340 H 154 H Calcium 9.0
--- NOTE | 2022-04-17 16:20 | PDOC.CMPRO ---
- If Service Date Differs Date of service: 04/17/22 Time of Service: 16:20 Care Management Progress Note S/O: Sindy remains inpatient at this time, PT recommending SNF; per discussion CM will offer Hospice consult (needs hospital bed) and caregiver training with PT for her daughters who provide her care at home. CM continues to follow. A: 76 year old admitted to [facility] 04/15/22 for Hyperglycemia, Hyponatremia, Hyperkalemia P: Sindy will return home with her daughter when she is medically cleared with a resumption of HH services. She will follow up with her PCP and discharge plan of care.
[2022-04-17 16:24] VITALS: BP 124/85; PULSE 90; RESP 18; TEMP 35.8; O2SAT 92
[2022-04-17 16:43] LABS: PTT Activated 20.7 sec (21.0-27.5)
[2022-04-17] MEDS: Dexamethasone 10 MG/ML VIAL IVP (19:24)
[2022-04-17] MEDS: Atorvastatin 40 MG TAB 80 MG PO (19:32)
[2022-04-17 19:36] VITALS: BP 152/84; PULSE 107; RESP 16; TEMP 35.9; O2SAT 96
[2022-04-17] MEDS: Insulin Aspart 300 UNITS/3 ML PEN 10 UNITS SC (20:39)
[2022-04-17] MEDS: Insulin Glargine 300 UNITS/3 ML PEN 15 UNITS SC (22:34)
[2022-04-17] MEDS: Pramipexole 0.5 MG TAB 0.75 MG PO (22:35)
[2022-04-17 22:52] VITALS: BP 127/82; PULSE 102; RESP 16; TEMP 36.5; O2SAT 95
[2022-04-18 03:00] VITALS: BP 134/77; PULSE 96; RESP 16; TEMP 36.1; O2SAT 98
[2022-04-18 08:04] VITALS: BP 145/80; PULSE 108; RESP 15; TEMP 36.2; O2SAT 97
[2022-04-18 08:16] VITALS: BP 145/90; PULSE 99; RESP 16; TEMP 36; O2SAT 95
[2022-04-18] MEDS: Loratidine 10 MG TAB PO (08:45)
[2022-04-18] MEDS: Cholecalciferol (Vitamin D3) 1,000 UNIT TAB 5000 UNITS PO (08:45)
[2022-04-18] MEDS: Allopurinol 300 MG TAB PO (08:45)
[2022-04-18] MEDS: Pantoprazole 40 MG TABCR PO (08:45)
[2022-04-18] MEDS: buPROPion-XL 150 MG TABCR 300 MG PO (08:45)
[2022-04-18] MEDS: Dexamethasone 4 MG TAB 6 MG PO ×4 (08:46→20:16)
[2022-04-18] MEDS: Empaglifozin 10 MG TAB PO (08:46)
[2022-04-18] MEDS: levETIRAcetam 500 MG TAB PO ×2 (08:46→20:18)
[2022-04-18] MEDS: Nystatin POWDER 60 GM JAR TP ×3 (08:49→20:18)
[2022-04-18] MEDS: Insulin Aspart 300 UNITS/3 ML PEN SC ×4 (08:49→21:52)
[2022-04-18] MEDS: Insulin NPH-Human 300 UNITS/3 ML PEN 35 UNIT SC ×3 (08:50→20:18)
[2022-04-18] MEDS: Normal Saline Flush 10 ML SYR IVP (08:57)
--- NOTE | 2022-04-18 09:42 | PT.INTREAT ---
Date of service: 04/18/22 PT Notes Visit Reasons: Hyperglycemia,Hyponatremia,Hyperkalemia,Generalize Inpatient Physical Therapy Treatment Note [facility] Date: 04/18/2022 PRECAUTIONS: Fall, Activity as tolerated SUBJECTIVE: iSndy is pleasant and agreeable to participating in PT. She reports that she is feeling better today. She continues to demonstrate expressive aphasia, and is agreeable to daughter, Yary, to discuss her care and living arraignments with PT and CM. OBJECTIVE: PAIN: No c/o pain BED MOBILITY/TRANSFERS Supine-sit: S Sit-supine: SBA with HOB flat Sit-stand: CGA Stand-sit: CGA Bed-Chair: CGA Chair-bed: CGA GAIT Assistive Device: FWW Weight bearing: Full Assist: CGA Distance: 10 steps in a.m.; 5 steps x2 + 10 steps in p.m. Deviation: Difficulty initiating lateral stepping, bilaterally THEREX: Patient was instructed in a LE strengthening program, completed in a supine position in both a.m. and p.m., to include: ankle pumps, quad sets, heel slides, hip abduction and bridging. TOILETING: Patient toileted with assist on the commode ASSESSMENT: Patient tolerated session well, although with complaint of increased fatigue. She reports feelings of increased weakness compared to her baseline. She requires CGA for transfers and ambulation with FWW at this time. She demonstrates improved strength compared to yesterday and increased ease with transfers. PLAN: Continue with global strengthening and general conditioning for improved mobility and activity tolerance. TREATMENT CODE/TIME: Session 1: 28 minutes; [id number], [id number] (09:03) Session 2: 32 minutes; [id number], [id number] (14:14)
--- NOTE | 2022-04-18 10:17 | W.PM.PROGNOT ---
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 Per [facility] neurosurgery conversation last night, they do not feel that the hemorrhage has increased and in fact is smaller compared to the last CT done at [facility] but they do note that the tumor appears larger w/ some necrosis. They can not offer any surgical intervention and they recommend follow up w/ neuroradiology and neuro-oncology. I will talk w/ her daughter to find out whether or not this has been scheduled. I followed up with the patient in the afternoon and saw her daughter while she was visiting her mother. Per her daughter, Ines, the patient is suppose to have radiation therapy tomorrow. I spoke w/ Dr. Vann, radiation oncology, he has set this up for tomorrow at 4 pm. I told him that medically she is ready to be discharged but her insulin will still need some adjustment based on her steroid use. I went over with him my conversation w/ [facility] neurosurgery and the recommended increase in decadron they recommended (incr to 6 mg qid). I also went over with him the strategy of using multiple different insulins, i.e. novolog for immediater coverage of high glucose readings using sliding scale, a basal insulin to cover overnight and provide some background insulin through the day and NPH to time w/ the peak effect of her decadron. I explained the insulin to steroid ratio of 0.5 units to 1 mg prednisone equivalent and that decadron has a 0.75 mg to prednisone 5 mg ratio. I told him that when her steroids are tapered her insulin also should be tapered to avoid hypoglycemia. Professional time spent interviewing and examining patient, discussion of goals of care with hospital team (care management, nursing and consulting professionals) was 60 minutes. (2) Acute hyperglycemia: Status: Acute Assessment and plan: blood sugars remain high in the high 170's and upwards of high 200's close to 300. This is d/t her increased decadron dosing. I have adjusted her NPH and added bedtime lantus. she remains on insulin resistant sliding scale. I also added Jardiance to her regimen (3) T2DM (type 2 diabetes mellitus): Assessment and plan: as above (4) DVT prophylaxis: Status: Acute Assessment and plan: not a candidate for chemoprophylaxis d/t her cerebral hemorrhages from her glioblastoma. avoid any antiplatelet drugs as well. use TEDS and SCD Subjective Subjective Interval history since last seen: Patient seems to be getting discouraged. I explained to her that I have increased her decadron per [facility] neurosurgery recommendation in hopes of helping w/ the edema from her glioblastoma but I also explained that that she needs definitive treatment w/ radiation and chemotherapy to try to shrink the tumor. She does not know when this was scheduled to begin. I told her that neurosurgery had nothing to offer her in way of surgery and the the cerebral hemorrhages do not need surgery. Per nursing she has had to be straight cathed twice for urinary retention. I will have them leave a griggs catheter in place if she has a high residual this morning. Exam Narrative Exam Narrative: Katt had her eyes closed when I entered the room w/ her nurse and w/ Dada Petersen who will be doing her EEG which was recommended by [facility] neurosurgery Katt still has significant expressive aphasia trouble w/ completing her thoughts She is able to answer yes/no and short word sentences but has trouble w/ word finding. When asked as to when her radiation treatments are suppose to start she answers she does not know Neuro: she still has significant deficits on her right side w/ clumsy control of her right hand. she is able to hold the right arm up against gravity but has a drift and can give some light resistance to push/pull but weaker compared to the right. hand grasp is weak. Legs: right leg she can not hold off the bed but can dorsiflex/plantar flex the right foot. Nursing reports she was dragging the foot when they got her up to chair for breakfast and to the toilet Objective Last Vital Signs Temp 36.0 C L 04/18/22 08:16 Pulse 99 H 04/18/22 08:16 Resp 16 04/18/22 08:16 BP 145/90 H 04/18/22 08:16 Pulse Ox 95 04/18/22 08:16 Laboratory Results - last 24 hr 04/17/22 04/17/22 14:55 16:15 PT 10.4 INR 1.0 APTT Cancelled 20.7 L PAWSS Have you Been Recently Intoxicated or Drunk Within the Last 30 days?: No Have you Ever Experienced Previous Episodes of Alcohol Withdrawal?: No Have you ever Experienced Withdrawal Seizures?: No Have you ever Experienced Delirium Tremens(DT)s?: No Have you ever undergone Alcohol Rehabilitation Treatment (i.e, inpt ot outpatient treatment programs)?: No Have you ever Experienced Blackouts?: No Have you ever Combined Alcohol with other Downers within the last 90 days?: No Have you ever Combined Alcohol with any other Substance of Abuse during the last 90 days?: No Positive Blood Alcohol level on Presentation? [PCS.BAL]: No Evidence of Increased Autonomic Activity (i.e. HR>120, tremor, sweating, agitation, nausea)?: No Result: 0
[2022-04-18 11:52] VITALS: BP 155/93; PULSE 88; RESP 17; TEMP 36.1; O2SAT 95
--- NOTE | 2022-04-18 13:55 | PDOC.EEG ---
Neurology EEG EEG: [facility] Department of Neurology INPATIENT EEG REPORT Date of Recordin04/18/22 Interpreting Physician: Dr. Julia Grant Reason for study: Ms. Smith is a 76 year-old woman with new diagnosis of L GBM, admitted for hypoglycemia, generalized weakness, and altered mental status. Current Medications: Current Medications Allopurinol (Allopurinol 300 Mg Tab) 300 mg PO DAILY [facility] Last Admin: 04/18/22 08:45 Dose: 300 mg Atorvastatin Calcium (Atorvastatin 40 Mg Tab) 80 mg PO QPM [facility] Last Admin: 04/17/22 19:32 Dose: 80 mg Bupropion HCl (Bupropion-Xl 150 Mg Tabcr) 300 mg PO QAM [facility] Last Admin: 04/18/22 08:45 Dose: 300 mg Cholecalciferol (Cholecalciferol (Vitamin D3) 1,000 Unit Tab) 5,000 units PO DAILY [facility] Last Admin: 04/18/22 08:45 Dose: 5,000 units Dexamethasone (Dexamethasone 4 Mg Tab) 6 mg PO QID [facility] Last Admin: 04/18/22 11:48 Dose: 6 mg Dextrose (Glucose 40% Oral Solution 15 Gm/37.5 Gm Tube) 0 gm PO DIRECTED PRN Dextrose/Water (Dextrose 50%-Water 25 Gm/50 Ml Syr) 0 gm IVP DIRECTED PRN Empagliflozin (Empaglifozin 10 Mg Tab) 10 mg PO QAM [facility] Last Admin: 04/18/22 08:46 Dose: 10 mg Gabapentin (Gabapentin 300 Mg Cap) 300 mg PO BID PRN PRN Sodium Chloride (Saline 500ml Bag) 500 mls @ 0 mls/hr IV PRN PRN IV Miscellaneous Supplies (Iv Access) 1 each IV DIRECTED [facility] Insulin Aspart (Insulin Aspart 300 Units/3 Ml Pen) 0 units SC 0800,1200,1700,2200 [facility]; Protocol Last Admin: 04/18/22 11:49 Dose: 9 unit Insulin Glargine (Insulin Glargine 300 Units/3 Ml Pen) 15 units SC HS [facility] Last Admin: 04/17/22 22:34 Dose: 15 units Insulin Human NPH (Insulin Nph-Human 300 Units/3 Ml Pen) 35 unit SC TID [facility] Last Admin: 04/18/22 13:43 Dose: 35 unit Levetiracetam (Levetiracetam 500 Mg Tab) 500 mg PO BID [facility] Last Admin: 04/18/22 08:46 Dose: 500 mg Loratadine (Loratidine 10 Mg Tab) 10 mg PO DAILY [facility] Last Admin: 04/18/22 08:45 Dose: 10 mg Magnesium Hydroxide (Milk Of Magnesia 30 Ml Cup) 30 ml PO DAILY PRN PRN PRN Reason: Constipation Melatonin (Melatonin 3 Mg Tab) 3 mg PO HS PRN PRN Nitroglycerin (Nitroglycerin 0.4 Mg Tab) 0.4 mg SL Q5 MIN PRN X3 PRN Nystatin (Nystatin Powder 60 Gm Jar) 0 gm TP TID [facility] Last Admin: 04/18/22 13:46 Dose: 1 applic Pantoprazole Sodium (Pantoprazole 40 Mg Tabcr) 40 mg PO DAILY@0730 [facility] Last Admin: 04/18/22 08:45 Dose: 40 mg Pramipexole Dihydrochloride (Pramipexole 0.5 Mg Tab) 0.75 mg PO HS [facility] Last Admin: 04/17/22 22:35 Dose: 0.75 mg Sodium Chloride (Normal Saline Flush 10 Ml Syr) 0 ml IVP PRN PRN Last Admin: 04/18/22 08:57 Dose: 10 ml Trazodone HCl (Trazodone 50 Mg Tab) 75 mg PO HS PRN PRN METHODS: A 21 channel digitized electroencephalogram was performed in the [facility] Med/Surg Floor or ICU. The 10/20 international system of electrode placement was used and bipolar and referential electrode montages were recorded. In addition to EEG the patient was monitored for EKG and lateral/vertical eye movements. Activation procedures of photic stimulation and hyperventilation were performed if applicable. Video was used during activation procedures and during events where applicable. The duration of the recording was 30 minutes. DESCRIPTION OF EEG: The patient was noted to be awake, drowsy, and asleep during the recording. During maximal wakefulness a 7-Hz posterior background rhythm was present which was poorly-modulated, symmetrical, reactive to eye opening, and of moderate voltage. With eye opening the background activity changed to a low voltage mixture of alpha, beta, and occasional theta range frequencies. Faster frequencies were present in the bilateral anterior head regions. There was a normal anterior-posterior voltage gradient. During drowsiness, there was attenuation of the posterior dominant background rhythm and vertex waves. Stage II sleep was present with symmetrical sleep spindles, K-complexes, and vertex waves. There was diffuse generalized, polymorphic slowing, that was slightly wosre in the left hemisphere. Activating Procedures: Photic stimulation was performed which produced a symmetrical posterior driving response at various flash frequencies. Hyperventilation was not performed. EKG: EKG revealed normal sinus rhythm. INTERPRETATION: This EEG is abnormal due to generalized, polymorphic slowing including slowing of the background rhythm, with more focal slowing in the left hemisphere. PRIOR EEG: none CLINICAL CORRELATION: The background and generalized slowing is suggestive of a mild-moderate diffuse cerebral encephalopathy of broad differential including toxic-metabolic etiology. The more focal left hemisphere slowing is consistent with patients known mass. No definite epileptiform activity was present. Julia Grant MD
[2022-04-18] MEDS: Atorvastatin 40 MG TAB 80 MG PO (20:17)
[2022-04-18] MEDS: Pramipexole 0.5 MG TAB 0.75 MG PO (21:50)
[2022-04-18] MEDS: Insulin Glargine 300 UNITS/3 ML PEN 15 UNITS SC (21:51)
[2022-04-18 22:50] VITALS: BP 145/79; PULSE 98; RESP 18; TEMP 36.1; O2SAT 93
[2022-04-19 08:18] VITALS: BP 127/77; PULSE 89; RESP 18; TEMP 36.3; O2SAT 94
--- NOTE | 2022-04-19 08:29 | CMPROGNOTE_ITS ---
- If Service Date Differs Date of service: 04/18/22 Time of Service: 08:29 Care Management Progress Note S/O: Sindy remains inpatient at this time, PT recommending SNF; per discussion CM will offer Hospice consult (needs hospital bed) and caregiver training with PT for her daughters who provide her care at home. Sindy will have three weeks of palliative chemo; anticipate she will not be admitted to Hospice until after treatement has been completed. Due to increased weakness, daughter Yary is requesting SNF referral; CM faxed referral to [facility] and spoke with Nikkie of admissions. Nikkie reports some insurance companies require the facility to cover the cost of palliative chemo, bed will not be offered if this is the case; awaiting determination. CM continues to follow. A: 76 year old admitted to [facility] 04/15/22 for Hyperglycemia, Hyponatremia, Hyperkalemia P: Sindy will return home with her daughter when she is medically cleared with a resumption of [id number] stay during palliative chemo. Sindy has her first scheduled chemo treatment tomorrow, 04/19/22@1600.
[2022-04-19] MEDS: levETIRAcetam 500 MG TAB PO (08:53)
[2022-04-19] MEDS: Dexamethasone 4 MG TAB 6 MG PO ×2 (08:53→13:53)
[2022-04-19] MEDS: buPROPion-XL 150 MG TABCR 300 MG PO (08:53)
[2022-04-19] MEDS: Allopurinol 300 MG TAB PO (08:53)
[2022-04-19] MEDS: Cholecalciferol (Vitamin D3) 1,000 UNIT TAB 5000 UNITS PO (08:53)
[2022-04-19] MEDS: Empaglifozin 10 MG TAB PO (08:53)
[2022-04-19] MEDS: Loratidine 10 MG TAB PO (08:53)
[2022-04-19] MEDS: Pantoprazole 40 MG TABCR PO (08:54)
[2022-04-19] MEDS: Nystatin POWDER 60 GM JAR TP (09:01)
[2022-04-19] MEDS: Insulin Aspart 300 UNITS/3 ML PEN SC (09:01)
[2022-04-19] MEDS: Insulin NPH-Human 300 UNITS/3 ML PEN 35 UNIT SC ×2 (09:02→13:53)
--- NOTE | 2022-04-19 12:48 | PT.INTREAT ---
Date of service: 04/19/22 Time of Service: 11:55 PT Notes Visit Reasons: Hyperglycemia,Hyponatremia,Hyperkalemia,Generalize Inpatient Physical Therapy Treatment Note [facility] Date: 04/19/2022 PRECAUTIONS: Fall, Activity as tolerated SUBJECTIVE: Sindy is pleasant and agreeable to participating in PT. She reports that she is feeling tired today. She continues to demonstrate expressive aphasia. She indicates that she is happy to be discharging to home later today. OBJECTIVE: PAIN: No c/o pain BED MOBILITY/TRANSFERS Supine-sit: I with HOB flat Sit-stand: SBA Stand-sit: SBA Bed-Chair: CGA GAIT Assistive Device: FWW Weight bearing: Full Assist: SBA Distance: 8 steps to chair Deviation: Extra time to initiate B foot advancement R>L ASSESSMENT: Patient tolerated session well without complaint. She demonstrates improved mobility requiring SBA for transfers at this time. She demonstrates improved strength compared to yesterday and increased ease with transfers. PLAN: Patient to discharge to home later today, per provider. Recommend follow up with PT to maintain current improved strength and ease with mobility. TREATMENT CODE/TIME: 9 minutes; 16703 (11:55)
[2022-04-19 15:02] VITALS: BP 150/93; PULSE 100; RESP 17; TEMP 35.9; O2SAT 95
--- NOTE | 2022-04-19 15:39 | W.PM.DS.N ---
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 She was noted by home health nurse to have elevated blood sugar over 500. She was sent to the emergency department where her blood sugar was over 600. She was found to have hyponatremia and hyperkalemia. She regularly takes hydrochlorothiazide with triamterene as well as potassium supplementation. She was dehydrated with an elevated BUN of 53 and a creatinine 1.6. She was admitted to the hospital for IV fluid hydration and correction of her hyperglycemia. She did not have an anion gap acidosis and was not in DKA. Patient was given normal saline and her serum sodium corrected by the next morning to 138. Potassium came down without any specific treatment and normalized to 4.2. The following morning her BUN was down to 39 and creatinine was 1.2. At the time of discharge her BUN and creatinine were 34 and 1.0. She has known type 2 diabetes mellitus and usually takes Trulicity and glipizide. While in the hospital she was managed with a complex insulin regimen that included NovoLog per sliding scale as well as NPH which was given to treat the steroid-induced hyperglycemia. Lantus was also added to help stabilize her blood sugar regimen. Blood sugars for first couple days and fluctuated running in the high 300s and low 400s before gradually coming down into the 200s and high 180s. Jardiance was added to her regimen while she was in the hospital at 10 mg daily. NPH dose was adjusted to correct her steroid-induced hyperglycemia. The theory being that NPH peaks about the same time as the steroids. NPH was given twice a day at a ratio of 0.5 units per 1 mg of prednisone equivalent. Because she was having progressive right-sided weakness and she was already scheduled for follow-up MRI scan of the brain we proceeded with obtaining an MRI scan of the brain. This showed interval increase in the size of the left parietal mass with evidence of hemorrhage and sulcal effacement and mass-effect on the adjacent left lateral ventricle but no midline shift. [facility] neurosurgery was consulted on her case because of the hemorrhages. The neurosurgical fellow reviewed her previous CT scans from [facility] and indicated that the hemorrhages have been present before but she could not determine whether the MRI changes were any worse than the previous CT scan so she requested that the patient undergo a head CT scan. This indeed showed increased necrosis of the left parietal mass compared to her prior CT scans of JanuaryFebruary 2022. There is increased sulcal effacement and mass-effect on the adjacent left lateral ventricle and now focus of hyperdense material in the anterolateral aspect of the mass suggestive of interval hemorrhage. However when the neurosurgical fellow reviewed our current CT scan with the previous CT scans at [facility] she felt there was no significant change in the degree of hemorrhage and indicated that there was no indication for neurosurgical involvement. It was recommended that she follow-up with neuroradiology for initiation of radiation treatment and neuro oncology for chemotherapy. I spoke with Dr. Mays the patient's radiation oncologist. He had her set up for outpatient radiation treatment to begin on 04/20/2022. During her hospital stay she was seen by physical therapy who worked on her strength and gait and balance while she was hospitalized. They recommended home health physical therapy to maintain her strength and improve her mobility. Patient was discharged to the care of her daughter with follow-up with her radiation oncologist Dr. Mays at 1600 on 04/20/2022. Patient will follow up with her primary care provider regarding her diabetes. I did talk with Dr. Mays about her insulin regimen. He indicated that her NPH could be weaned off as the Decadron is weaned off. I also told him that the neurosurgical fellow recommended increasing the patient's Decadron to 6 mg qid and that was per the neurosurgical fellow's discussion with her attending. It did seem like the patient's right-sided weakness did improve with the increase in the Decadron. Home Meds and New Rx's Prescriptions: New insulin glargine [Lantus Solostar U-100 Insulin] 100 unit/mL (3 mL) insulin pen 10 unit subcut HS Qty: 15 0RF Humulin N NPH Insulin KwikPen 100 unit/mL (3 mL) insulin pen 25 unit subcut BID Qty: 15 0RF insulin aspart U-100 [Novolog Flexpen U-100 Insulin] 100 unit/mL (3 mL) insulin pen 1 sliding scale dose subcut USEASDIRECTD Qty: 15 0RF Rx Instructions: give per [facility] insulin resistant sliding scale glucose 5 % solution 10 g PO ONCE PRNQty: 354 0RF Rx Instructions: may repeat once after 15 minutes if no response Glucagon (HCl) Emergency Kit 1 mg recon soln 1 mg subcut Q20M PRNQty: 1 0RF Rx Instructions: until target blood sugar attained Continued methocarbamol 500 mg tablet 500 mg PO QID PRN (Reason: pain) Qty: 60 0RF gabapentin 300 mg capsule 300 mg PO BID PRN (Reason: muscle spasm) Qty: 180 3RF Hold Instructions: Home Medication placed on hold at Doctor's office melatonin 3 mg tablet 3 mg PO HS PRN triamcinolone acetonide 0.5 % ointment 1 applic topical BID PRN (Reason: psoriasis) Qty: 15 0RF Rx Instructions: apply thin film to psoriasis that is not on the face BID prn nitroglycerin [Nitrostat] 0.4 MG tablet, sublingual 0.4 mg Sublingual PRN PRN (DME) OneTouch Ultra Test 1 EACH strip 1 ea Miscellaneous cholecalciferol (vitamin D3) [Vitamin D3] 50 mcg (2,000 unit) capsule 5,000 unit PO DAILY allopurinol 300 mg tablet 300 mg PO DAILY Qty: 90 3RF Trulicity 1.5 mg/0.5 mL pen injector 1.5 mg SC QWEEK Qty: 12 4RF Rx Instructions: Sundays bupropion HCl 300 mg tablet extended release 24 hr 300 mg PO QAM Qty: 90 2RF levetiracetam [Roweepra] 500 mg tablet 500 mg PO BID Qty: 60 0RF trazodone 50 mg Tablet 75 mg PO QHS PRN sulfamethoxazole-trimethoprim 800-160 mg tablet 1 tab PO DIRECTED Rx Instructions: Saturdays, Mondays, Wednesdays pramipexole 0.5 mg Tablet 0.75 mg PO QHS atorvastatin 40 mg tablet 80 mg PO HS pantoprazole 20 mg tablet,delayed release (DR/EC) 40 mg PO DAILY Changed dexamethasone 4 mg tablet 6 mg PO QID Qty: 60 0RF loratadine 10 mg tablet 10 mg PO DAILY PRN PRNQty: 90 3RF Discontinued glipizide 5 mg tablet extended release 24hr 5 mg PO BID Qty: 180 3RF triamterene-hydrochlorothiazid 37.5-25 mg Capsule 2 cap PO QAM potassium chloride 10 mEq tablet extended release 10 meq PO BID aspirin [Aspirin Low-Strength] 81 mg Tablet,Delayed Release (Dr/Ec) 81 mg PO DAILY Discharge Instructions Instructions: Hypoglycemia in a Person with Diabetes (DC), Nondiabetic Hyperglycemia (DC), Diabetic Hyperglycemia (DC), What to Do if Your Blood Sugar is Low (DC) Additional Instructions: Monitor blood sugar at least 4 times a day before each meal and at bedtime. Do more frequent blood sugar checks if having frequent hyper or hypoglycemia. Goals of blood sugar control should be fasting glucose under 120 and all the blood sugars under 180. Occasional blood sugar rises in the low to mid 200s can be expected with corticosteroid use. Call physician if you are having frequent blood sugars above 250 or less than 100. The patient has a low blood sugar reading less than 80 and is symptomatic give her oral glucose solution. If the patient is not responsive and not able to take oral glucose solution or fruit juices then administer glucagon injection and once she becomes responsive feed her high glucose meal such as fruit juices and peanut butter. If frequent hypoglycemia spells are occurring please call your primary care provider to adjust your sliding scale downward to an insulin sensitive scale and also to adjust your basal insulin and your NPH. The NPH should only be given while she continues to take Decadron for her brain tumor. Once she is off Decadron NPH can be discontinued. With resumption of your Trulicity your insulin needs may decrease. Once you resume your Trulicity you may need to only use a sliding scale to control your blood sugars. The NovoLog insulin is the short acting insulin is to be used according to a sliding scale. Stand Alone Forms: Nursing Discharge Form Referrals: Kain Mays [ NON-[facility] STAFF PHYSICIAN] - () Rosalie Joya MD [Primary Care Provider] - 04/26/22 2:30 pm () Activity:: Activity as Tolerated Equipment/Supplies:: No Equipment Needed Diet:: Carb Counting Discharge Orders Discharge Orders: Discharge Order (Routine); Ordered 04/19/22 Ordered By: Orion Gotti Discharge Data Discharge Date/Time-TO BE ENTERED AT DEPARTURE: 04/19/22 15:58 DS: Summary Time Spent with Patient providing and/or coordinating discharge services: Greater than 30 minutes Specific discharge activities: Interview/exam of patient; review of discharge instructions, completion of prescriptions/discharge instructions; discussion w/ nursing and CM; documentation of hospital visit Status at Discharge Functional status at discharge: uses cane/walker Overall status at discharge: patient is not back to baseline Mental Status: mental status grossly normal Speech and Movement: delayed speech and slowed movement Mood: congruent mood Affect: normal affect Exam Narrative Exam Narrative: Patient was seen this morning with case management. manager environmental services discussed with her her options of going to a chcf facility versus going home. The issue is whether or not the chcf facility would agree to cover her cancer treatments while she is in rehab. Physical therapy is indicated that the patient could potentially go home if her daughter is able to handle her. We will be getting visiting nurse services to come out to the home and we will ask for wraparound services including physical therapy and Occupational Therapy as well as [facility] to monitor her blood sugars and continue with diabetic teaching which was started here in the hospital. We will ask for S[employer] to coordinate her outpatient services. Loyda is alert and oriented answers yes or no appropriately to questions. She follows commands. Her range of motion and strength seems to be improved in her right arm since we have increased her steroids. Her hand grasp is stronger today she is able to hold up her right arm and resist me to pushing and pulling with the right arm. Her right leg still remains weak she is able to lift it up but not able to hold the leg up against gravity. Left arm and left leg strength are totally normal. Her speech is still hesitant and she still has word finding difficulties but is able to answer in a couple words yes and no type questions. Psych Mental Status: mental status grossly normal Speech and Movement: delayed speech and slowed movement Mood: congruent mood Affect: normal affect DS: Data Vitals/I&O Vitals and I&O: Vital Signs Temperature 35.9 C L 04/19/22 15:02 Temperature Source Tympanic 04/19/22 15:02 Pulse 100 H 04/19/22 15:02 Pulse Rhythm Regular 04/19/22 10:20 Respiratory Rate 17 04/19/22 15:02 Respiratory Effort Non-Labored 04/19/22 10:20 Respiratory Depth Normal 04/19/22 10:20 Respiratory Pattern Normal 04/19/22 10:20 Blood Pressure 150/93 H 04/19/22 15:02 Blood Pressure Position Sitting 04/15/22 14:24 Pulse Oximetry 95 04/19/22 15:02 Oxygen Delivery Method Room Air 04/19/22 15:02 Oxygen Flow Rate 0 04/19/22 15:02 Pain Level 0 04/19/22 15:02 Intake & Output 04/18/22 04/19/22 04/19/22 23:59 11:59 23:59 Intake Total 0 / 370 480 / 880 400 / 880 Output Total 800 / 800 800 / 800 Balance -800 / -430 -320 / 80 400 / 80 Weight 97.5 kg Intake: Oral 0 / 370 480 / 880 400 / 880 Output: Urine 800 / 800 800 / 800 Other: Urine Color Yellow Yellow Urine Appearance Clear Clear Comment pT sat on the comode, pT was dry and did not void while sitting on comode. She also said she had no urge to void. 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 Onc Weakness on right side of face (Acute) Psoriasis (Chronic) Former Cigarette Smoker (Chronic ~2018) quit in 2019 following MD Osteoarthritis of hands, bilateral (Acute) Hyperlipidemia (Acute) Hypertension (Chronic) Hyperuricemia without signs of inflammatory arthritis and tophaceous disease (Acute) Other recurrent depressive disorders (Acute 02/01/15) Vitamin D deficiency (Acute 02/17/15) Restless legs syndrome (Acute 02/08/13) Sleep Study 12/2012: abundant periodic limb movements causing signficant sleep fragmentation; no sleep apnea; Myalgia (Acute 05/30/17) Morbid obesity (Acute 02/17/15) Marijuana use (Acute 09/08/15) Rice Krispie bars w/marijuana Low back pain (Acute 02/01/15) Fatigue (Acute 02/17/15) Environmental allergies (Acute 02/17/15) Edema (Acute 02/17/15) Type 2 diabetes mellitus (Acute 02/17/15) Complete tear of right rotator cuff (Chronic 01/17/18) Chronic kidney disease (CKD) stage G3a/A1, moderately decreased glomerular filtration rate (GFR) between 45-59 mL/min/1.73 square meter and albuminuria creatinine ratio less than 30 mg/g (Acute 02/17/15) Medical History Carpal tunnel syndrome, left (01/17/18) Cataracts, bilateral Mild visually significant cataracts 01/06/21 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 Started aching @ night .. then pain increased, jose with walking. Improved today post CBD oil and recent rest. But tender. Recovery may be delayed 2' walking, standing @ yard sale... NSTEMI (non-ST elevated myocardial infarction) (06/18/18) T2DM (type 2 diabetes mellitus) Tobacco abuse quit 2017, occasionally since then Surgical History Endoscopic Carpal Tunnel release (03/13/18) Left History of umbilical hernia repair (~2001) Tonsillectomy and adenoidectomy (02/17/1954) Family History Mother Osteoporosis Arthritis Heart disease Stroke Father Diabetes Arthritis Heart disease Emphysema lung Stroke Sister Diabetes Arthritis Heart disease Mental disorder Social History Smoking/Tobacco Use Status: Former Tobacco Use Quit Date: 05/31/18 Tobacco: How many years used: 45 Smoking risk assessment performed?: Yes Alcohol Intake: current Alcohol Intake frequency: a few times a month Drug use: Occasionally Substance use type: does not use Household members: none Housing: apartment Number of Children: 4 Communication Needs: Corrective Lenses What is your relationship status?: Panel score (0-1 are the most socially isolated patients): 0 What type of physical activity do you participate in: none Seatbelt use: always Drive intox or ride w/intox delivery motorcycle driver: No Working smoke detector in home: Yes Fire extinguisher in home: Yes Carbon monox detector in home: Yes Do you feel safe at home: Yes Do you feel safe in your relationship?: Yes
--- NOTE | 2022-04-19 15:48 | W.DIABETESNO ---
Date of service: 04/19/22 Time of Service: 15:48 Diabetes Note Reason for Visit: Monitoring and Insulin injections NOTE: Instructed Ms. Smith's daughter on monitoring blood sugars with multiple daily injections of insulin. We discussed the followin. Lantus once daily in the evening. Morning blood sugar trends will give let us know if that dose needs adjusting but as a rule this dose stays the same. 2. NPH, three times daily at meals. We discussed that this dose does not change. If she notices that her mother is having lows during the day as a trend, then we can look at adjusting that dose. Or if her blood sugars are above target regularly then we can adjust her NPH. 3. We reviewed the sensitivity scale to correct blood sugars pre meal. We discussed that her regular insulin is the one dose that will change each time (most likely) 4. Instructed her daughter on PIE (poke finger, inject insulin, eat). 5. Instructed hananeer on signs and sx of hypoglycemia as well as treatment of hypoglycemia. Provided written materials on all of the above. Her daughter demonstrated an excellent understanding of all of the teaching. Provided my contact information. Strongly encouraged her daughter to contact me without hesitation via phone, email, or patient portal with any questions or concerns regarding Ms. Smith's diabetes management. Time Spent in Nutritional Counseling and Treatment: 30 minutes
--- NOTE | 2022-04-19 16:57 | CMDISCH_ITS ---
- If Service Date Differs Date of service: 04/19/22 Time of Service: 16:57 LACE Index Scoring Tool - Questions: Length of Stay (in days): 4 - 6 Acuity (Admit via E.D.?): Yes Comorbidities: Previous M.I., Diabetes w/o Complication, Any Tumor, Liver or Renal Disease E.D. Visits: 4 - Answers: Total Score: 16 Risk of Readmission: High Risk Care Management Discharge Reason for Hospitalization: hyperglycemia, hyponatremia, hyperkalemia Discharge Plan: Loyda was discharged this afternoon shortly before her first appointment for treatment at [facility]. She was interested in staying at [facility] for the duration of her treatment, which is expected to be three weeks of palliative chemo/radiation. Admissions at [facility] continues to seek approval from her insurance, with her cancer treatments being the limiting factor. CM explained that if she is approved for admission at [facility], she can be admitted from the community, as she has had a qualifying stay. Her daughter is staying with her 21/05 currently, and stated that she feels comfortable taking her home, as her mobility has greatly improved. Her daughter will provide transport via private vehicle. She will follow up with her PCP, Palliative Care, and her discharge plan of care. She is happy to be going home. Patient/Family Education Needs: Review discharge instructions and limitations, discussion of self care needs including ask me three. Services Needed at Discharge: Home Health Care Services (AVELINO RN, PT, OT, INTERNATIONAL ORGANIZER)
--- NOTE | 2022-04-20 09:58 | PDOC.HHF2F_ITS ---
Home Health Certification Home Health Certification: 1. Encounter Date and Reason I certify that Loyda Smith was seen by Orion Gotti on 04/19/22 and that I had a [id number] encounter with this patient that meets the physician face to face encounter requirements. 2. Clinical Findings Supporting Skilled Need and Homebound Status I certify that home health services are medically necessary, include either intermittent prison and/or physical/speech therapy, and that this patient is homebound in that absences from the home require considerable and taxing effort and are infrequent or of short duration, or are attributable to the need to receive medical care. [X] (a) Attached documentation from encounter provides clinical findings supporting skilled need and homebound status (including what assistance patient requires to leave the home). The encounter with the patient was in whole, or in part, for the following medical condition, which is the primary reason for home health care: Hyperglycemia,Hyponatremia,Hyperkalemia,Generalize Custodial: to evaluate, treat, and educate on use of insulin and monitoring of hyper/hypoglycemia; educate patient and family on medication changes and to coordinate w/ PCP and consulting providers on any medicine changes, changes in patient's condition and to obtain any follow up labs M.S.W. to be consulted to assist patient and family in coordination of services and to coordinate w/ providers any additional needs of patient Physical Therapy: P.T. and O.T. to evaluate and treat patient on her generalized weakness and specifically her right sided pareses from her brain tumore; to provide services to improve her ambuation, balance and strength and to improve her independent performance of A.D.L.'s Speech Therapy: Homebound: patient's recent hospitalization for hyperglycemia and progression of her brain tumor has impaired her ability to seek medical care outside her home to such a degree that doing so presents a threat to her health and safety necessitating obtaining of in home services. 3. Certification and Authentication I certify that I composed the above information based on my clinical judgement relating to this patient's medical condition and, if applicable, clinical findings communicated to me by the NPP or inpatient physician who performed the Home Health Referral. All further orders will be obtained through ____Rosalie Joya (Community Based Physician - PCP)
--- NOTE | 2022-04-20 11:21 | INDS_ITS ---
PT Notes Visit Reasons: Hyperglycemia,Hyponatremia,Hyperkalemia,Generalize Treatment Dates: 04/17/2022 - 04/19/22 Referring Doctor: Orion Lyn MD PT Orders: PT CONSULT: Fall safety assessment This document serves as a summary of care. No PT services were provided on this date. Patient Profile/Admitting Diagnosis: 76-year-old female with glioblastoma recently admitted with hyperglycemia, hyperkalemia, and hyponatremia. She participated in 4 PT sessions over the course of 3 days, with improvements in safey and mobility sufficient to allow for safe return to community living with family assistance on 04/19/22. PMHX: Social History/Home Situation: Patient lives with her sister and is cared for at also by her 2 daughters Current Functional Limitations: Requires assistance with all ADLs Equipment Owned/DME: Walker Subjective: none obtained, as patient discharged chinmay 04/19/22 Objective: ROM: Right Upper Extremity: She has difficulty actively lifting her right upper extremity overhead, and active assistively is limited to approximately 100 degrees. Her active left shoulder flexion is 105 degrees, and remaining articular structures show good functional range of motion without pain on movement Strength: Her strength is generally rated 4/5 except her right supraspinatus which is 1- 2/5 Neuro: Reflexes are symmetrical, has full motor control. Sensation was difficult to assess due to her mental status BED MOBILITY/TRANSFERS? Supine-sit: I with HOB flat Sit-stand: SBA? Stand-sit: SBA ? Bed-Chair: CGA ? GAIT? Assistive Device: FWW? Weight bearing: Full Assist: SBA ? Distance:? 8 steps to chair ? Deviation: Extra time to initiate B foot advancement R>L Balance: Static Sitting: Good Dynamic Sitting: Good Static Standing: Good Dynamic Standind: Fair Assessment: Patient is a 76year old female referred to physical therapy services with the diagnosis of hyperglycemia/hyperkalemia and hyponatremia. She participated in 4 PT sessions over the course of 3 days, with improvements in safety and mobility sufficient to allow for safe return to community living with family assistance on 04/19/22. Goals: Goals X1 week 1. Supine-Sit independent (met) 2. Sit-Supine independent(met) 3. Sit-Stand independent (progressing toward, with ability to complete with stand by assist) 4. Stand-Sit independent(progressing toward, with ability to complete with stand by assist) 5. Bed-Chair independent(progressing toward, with ability to complete with stand by assist) 6. Chair-Bed independent(progressing toward, with ability to complete with stand by assist) 7. Gait ambulation with a FWW with minimal contact guarding for greater than 100 feet (not met) 8. Stairs ascend and descend 3 steps (not met) Plan of Care/Treatment Plan: D/C home with family assistance DISCHARGE RECOMMENDATIONS: Home with Home health services TREATMENT CODE/TIME: none Lesly Garcia, PT, DPT [facility]
== END 2022-04-19 15:58 | disposition home health service (06) | DRG 637 ==
LOC: ER 19:07 → MS 20:19
PROVIDERS: Internal Medicine; Admitting Provider Family Medicine; Emergency Provider Student in an Organized Health Care Education/Training Program; PCP Internal Medicine; Visit Provider Family Medicine
DX: E11.65 Type 2 diabetes mellitus with hyperglycemia (principal); G93.6 Cerebral edema; E87.1 Hypo-osmolality and hyponatremia; R47.01 Aphasia; C71.1 Malignant neoplasm of frontal lobe; G81.91 Hemiplegia, unspecified affecting right dominant side; E87.5 Hyperkalemia; R29.810 Facial weakness; L40.9 Psoriasis, unspecified; M19.042 Primary osteoarthritis, left hand; M19.041 Primary osteoarthritis, right hand; E78.5 Hyperlipidemia, unspecified; F32.9 Major depressive disorder, single episode, unspecified; E55.9 Vitamin D deficiency, unspecified; G25.81 Restless legs syndrome; F12.90 Cannabis use, unspecified, uncomplicated; M54.50 Low back pain, unspecified; N18.31 Chronic kidney disease, stage 3a; E11.22 Type 2 diabetes mellitus with diabetic chronic kidney disease; I12.9 Hypertensive chronic kidney disease with stage 1 through stage 4 chronic kidney disease, or unspecified chronic kidney disease; I25.2 Old myocardial infarction; Z79.84 Long term (current) use of oral hypoglycemic drugs; Z79.899 Other long term (current) drug therapy; Z79.52 Long term (current) use of systemic steroids; Z87.891 Personal history of nicotine dependence; R26.2 Difficulty in walking, not elsewhere classified; T38.0X5A Adverse effect of glucocorticoids and synthetic analogues, initial encounter
CPT/HCPCS: 36415; 36416; 70553; 80048; 80053; 82947; 82962; 85027; 87635; 93005; 95819; 96360; 96361; 96372; 97110; 97163; 97530; 99285; U0005; 70450; 81003; 85025; 85610; 85730; 93010; 99222; 99232; 99233; 99239; J1100; J8540

== ENCOUNTER → 2022-04-17 01:40 | Outpatient (CLI) | payer MEDICARE, OTHER, SELFPAY | PROVIDERS: PCP Internal Medicine; Visit Provider Radiology Radiation Oncology ==

== ENCOUNTER 2022-04-28 15:11 | Outpatient (CLI) | payer MEDICARE, OTHER, SELFPAY ==
[2022-04-28 12:44] LABS: Absolute Basophil Count 0.02 10^3/uL (0.0-0.2); Absolute Eosinophil Count 0.03 10^3/uL (0.0-0.7); Absolute Lymphocyte Count 0.74 10^3/uL (1.2-3.4); Absolute Monocyte Count 0.28 10^3/uL (0.1-0.8); Basophils % 0.2; Eosinophils % 0.3; HCT 39.6 % (36.0-46.0); HGB 13.2 g/dL (11.2-15.7); Immature Grans % 1.8; Lymphocytes % 6.7; MCH 31.7 pg (27.0-33.0); MCHC 33.3 % (32.0-36.0); MCV 95 fL (80-95); MPV 10.3 fL (8.0-11.0); Monocytes % 2.5; Neutrophils % 88.5; Platelet Count 137 10^3/uL (130-400); RBC 4.16 10^6/uL (3.93-5.22); RDW 14.6 % (11.7-14.6); RDW-SD 50.1 fL; WBC 11.09 10^3/uL (4.4-10.8)
[2022-04-28 12:59] LABS: Absolute Neutrophil Count 9.81 10^3/uL (1.2-6.7)
[2022-04-28 13:27] LABS: Iron 78 ug/dL (50-170); Total Iron Binding Capacity 244 ug/dL (250-450); Transferrin Sat 32 % (15-50)
[2022-04-28 13:29] LABS: ALT 68 U/L (14-59); AST 28 U/L (15-37); Albumin 2.7 g/dL (3.4-5.0); Alkaline Phosphatase 56 U/L (46-116); Anion Gap 3.4 mmol/L (3-11); BUN 31 mg/dL (7-18); Bilirubin, Total 0.6 mg/dL (0.2-1.0); CO2 32.6 mmol/L (21.0-32.0); CREATININE 0.9 mg/dL (0.55-1.02); Calcium 8.9 mg/dL (8.5-10.1); Chloride 99 mmol/L (98-107); Folate 6.1 ng/mL (8.6-20.0); Glucose 152 mg/dL (74-106); Potassium 4.1 mmol/L (3.5-5.1); Sodium 135 mmol/L (136-145); Total Protein 5.7 g/dL (6.4-8.2); Vitamin B12 475 pg/mL (193-986)
== END 2022-04-28 15:12 | disposition home or self-care (01) ==
LOC: LBO 15:14
PROVIDERS: PCP Internal Medicine; Visit Provider Internal Medicine
DX: C71.9 Malignant neoplasm of brain, unspecified (principal)
CPT/HCPCS: 36415; 80053; 82607; 82746; 83540; 83550; 85025

== ENCOUNTER 2022-05-04 03:58 | Outpatient (CLI) | payer MEDICARE, OTHER, SELFPAY ==
[2022-05-04 13:07] LABS: Abs Immature Grans 0.14 10^3/uL (0.0-0.06); Absolute Basophil Count 0.02 10^3/uL (0.0-0.2); Absolute Lymphocyte Count 0.35 10^3/uL (1.2-3.4); Absolute Neutrophil Count 8.13 10^3/uL (1.2-6.7); Basophils % 0.2; HGB 13.2 g/dL (11.2-15.7); Immature Grans % 1.6; Lymphocytes % 3.9; MCH 31.4 pg (27.0-33.0); MCHC 32.2 % (32.0-36.0); MCV 98 fL (80-95); MPV 10.2 fL (8.0-11.0); Monocytes % 3.4; Neutrophils % 90.9; Platelet Count 128 10^3/uL (130-400); RDW-SD 53.2 fL; WBC 8.94 10^3/uL (4.4-10.8)
[2022-05-04 13:28] LABS: ALT 54 U/L (14-59); AST 18 U/L (15-37); Albumin 2.9 g/dL (3.4-5.0); Alkaline Phosphatase 70 U/L (46-116); Anion Gap 8.4 mmol/L (3-11); BUN 37 mg/dL (7-18); Bilirubin, Total 0.5 mg/dL (0.2-1.0); CO2 28.6 mmol/L (21.0-32.0); Calcium 9.2 mg/dL (8.5-10.1); Chloride 103 mmol/L (98-107); Estimated GFR 53.48 (mL/min/1.73m2); Glucose 246 mg/dL (74-106); Potassium 3.8 mmol/L (3.5-5.1); Sodium 140 mmol/L (136-145); Total Protein 6.2 g/dL (6.4-8.2)
[2022-05-04 13:32] LABS: Iron 82 ug/dL (50-170); Total Iron Binding Capacity 245 ug/dL (250-450); Transferrin Sat 33 % (15-50)
[2022-05-04 14:05] LABS: Folate 6.1 ng/mL (8.6-20.0); Vitamin B12 412 pg/mL (193-986)
== END 2022-05-04 03:59 | disposition home or self-care (01) ==
LOC: LBO 03:58
PROVIDERS: PCP Internal Medicine; Visit Provider Internal Medicine
DX: C71.9 Malignant neoplasm of brain, unspecified (principal)
CPT/HCPCS: 36415; 80053; 82607; 82746; 83540; 83550; 85025

== ENCOUNTER 2022-05-09 10:37 | Inpatient (IN) | payer MEDICARE, OTHER, SELFPAY ==
[2022-05-09] VITALS (16 sets, daily range): BP systolic 138–165; BP diastolic 73–97; PULSE 81–148; RESP 10–21; TEMP 36.4–36.5; O2SAT 94–98
--- NOTE | 2022-05-09 10:30 | RT.EKG_ITS ---
APPROVED REPORT Exam: Resting ECG Reason for Exam: sob Patient Location: E HR:98 bpm ECG Measurements Heart Rate 98 AXIS IL 66 P 31 QRSd 92 QRS -28 QT 349 T 106 QTc 446 Conclusion Sinus rhythm...normal P axis, V-rate 60- 99 LVH with secondary repolarization abnormality...multi-LVH criteria, abnrm ST-T. Sinus. No STEMI. I have reviewed and interpreted ECG and agree with software generated interpretation.
--- NOTE | 2022-05-09 11:00 | DI.US_ITS ---
Exam(s) US LOWER EXTREMITY VENOUS RT EXAM: US LOWER EXTREMITY VENOUS RT CLINICAL HISTORY: swelling TECHNIQUE: Right lower extremity venous ultrasound performed using grayscale, color-flow, and spectr al Doppler analysis. COMPARISON: No exams were available for comparison FINDINGS: The right common femoral, femoral and popliteal veins demonstrate normal compressibility, augmentatio n, and color Doppler. The posterior tibial veins are patent. The saphenofemoral junction is unremark able. There is no evidence of a Manriquez cyst. The soft tissues are unremarkable. IMPRESSION: 1. No DVT. 2. Results of this exam have been verbally communicated with provider. DATA REPOSITORY:
--- NOTE | 2022-05-09 11:00 | DI.CT_ITS ---
Exam(s) CT HEAD WO EXAM: CT HEAD WO CLINICAL HISTORY: hx of cancer, increased fatigue. TECHNIQUE: Imaging Protocol: Axial computed tomography images with coronal and sagittal reformatted images were created and reviewed COMPARISON: CT CT HEAD WO from 04/17/2022 FINDINGS: Ventricles and Extra axial spaces: Normal in size and morphology for the patient's age. Hemorrhage: None. Cerebral parenchyma: There has been no change in size of the left parietal mass. There has been no c hange in the sulcal effacement or mass effect on the adjacent lateral ventricle. No new hemorrhage i s seen within the mass. No acute territorial infarct. There are areas of decreased attenuation in t he white matter most consistent with small vessel ischemic disease. Midline shift: None. Brainstem/Cerebellum: Normal. Calvarium: Normal. Visualized Paranasal sinuses/Mastoids: Clear. Soft Tissues: Unremarkable. IMPRESSION: 1. Stable left parietal intracranial mass. 2. Results of this exam have been verbally communicated with provider. RADIATION DOSE DELIVERED: 701.2mGy.cm Total DLP DATA REPOSITORY: All CT scans at this facility are submitted to the National Radiology Data Registry (NRDR) Dose Index Registry (DIR) with the [employer] ([employer]). RADIATION OPTIMIZATION: All CT scans at this facility use at least one of these dose optimization te chniques: automated exposure control; mA and/or kV adjustment per patient size (includes targeted exa ms where dose is matched to clinical indication); or iterative reconstruction.
--- NOTE | 2022-05-09 11:00 | DI.CT_ITS ---
Exam(s) CT CHEST PE CTA EXAM: CT CHEST PE CTA CLINICAL HISTORY: shortness of breath, ca pt. TECHNIQUE: Imaging Protocol: Axial CT angiography was performed with multi-slice acquisition and mu lti-planar and/or 3D reconstructions. CONTRAST MATERIAL: Intravenous: Omnipaque 350 contrast volume:100 mL COMPARISON: CT CT CHEST PE CTA from 03/02/2022 FINDINGS: The examination is limited due to patient motion artifact. Tracheobronchial tree: Patent where visualized. Pulmonary parenchyma: No consolidation or dominant measurable mass. There is poor inspiration. Pulmonary Arteries: No evidence of filling defect to suggest pulmonary emboli. Mediastinum and Nicole: No dominant adenopathy or fluid collection. The esophagus is unremarkable. Visualized thyroid gland: Unremarkable. Pleura: No effusion or pneumothorax. Heart: Cardiomegaly. Coronary artery calcifications are present. No pericardial effusion. Aorta: Thoracic aorta non-dilated. No evidence of dissection. Atherosclerosis is present. Upper abdomen: Unremarkable. Soft tissues: Unremarkable. Bones: Within normal limits for the patient's age. IMPRESSION: 1. No evidence of pulmonary embolism, thoracic aortic dissection or aneurysm. 2. Results of this exam have been verbally communicated with provider. RADIATION DOSE DELIVERED: 573.84mGy.cm Total DLP DATA REPOSITORY: All CT scans at this facility are submitted to the National Radiology Data Registry (NRDR) Dose Index Registry (DIR) with the [employer] (A[employer]). RADIATION OPTIMIZATION: All CT scans at this facility use at least one of these dose optimization te chniques: automated exposure control; mA and/or kV adjustment per patient size (includes targeted exa ms where dose is matched to clinical indication); or iterative reconstruction.
--- NOTE | 2022-05-09 13:10 | W.ANESVAS ---
Peripheral IV Placement Date Performed: 05/09/22 Procedure Time: 13:00 Requesting Provider: Charlene Quintana Procedure Location: Emergency Department Sedation Given (Indicate Dose Given): No Sedation given Patient Mental Status: Awake Laterality: Right Insertion Site: Antecubital Size & Type: 18 ga. Dressing: IV Dressing Placed and Tegaderm Applied Ultrasound: Not Used Number of Attempts (See previous attempts in note section): 1 Procedure Tolerated: No Complications Procedure Outcome: Successful Performed By: Bladimir Valencia
[2022-05-09 13:18] LABS: Source Nasal/Nares
[2022-05-09 13:19] LABS: BE (Venous) 7 mmol/L (-2-3); HCO3 (Venous) 30 mmol/L (23-28); O2 Sat (Venous) 93 %; TCO2 (Venous) 27 mmol/L (24-29); pCO2 (Venous) 40 mmHg (41-51); pH (Venous) 7.48 (7.31-7.41); pO2 (Venous) 63 mmHg
[2022-05-09 13:28] LABS: Abs Immature Grans 0.24 10^3/uL (0.0-0.06); Absolute Basophil Count 0.02 10^3/uL (0.0-0.2); Absolute Eosinophil Count 0.01 10^3/uL (0.0-0.7); Absolute Lymphocyte Count 0.56 10^3/uL (1.2-3.4); Absolute Monocyte Count 0.24 10^3/uL (0.1-0.8); Basophils % 0.3; Eosinophils % 0.1; HGB 12.1 g/dL (11.2-15.7); Immature Grans % 3.3; Lymphocytes % 7.7; MCH 31.8 pg (27.0-33.0); MCHC 32.7 % (32.0-36.0); MCV 97 fL (80-95); MPV 10.2 fL (8.0-11.0); Monocytes % 3.3; Neutrophils % 85.3; Platelet Count 110 10^3/uL (130-400); RDW 15.7 % (11.7-14.6); WBC 7.27 10^3/uL (4.4-10.8)
[2022-05-09 13:39] LABS: ALT 51 U/L (14-59); AST 33 U/L (15-37); Albumin 2.7 g/dL (3.4-5.0); Alkaline Phosphatase 53 U/L (46-116); Anion Gap 7.3 mmol/L (3-11); BUN 24 mg/dL (7-18); Bilirubin, Total 0.8 mg/dL (0.2-1.0); CO2 27.7 mmol/L (21.0-32.0); CREATININE 0.7 mg/dL (0.55-1.02); Calcium 8.8 mg/dL (8.5-10.1); Chloride 103 mmol/L (98-107); Glucose 67 mg/dL (74-106); Magnesium 1.7 mg/dL (1.8-2.4); Potassium 4.5 mmol/L (3.5-5.1); Sodium 138 mmol/L (136-145); Total Protein 5.9 g/dL (6.4-8.2); Troponin I < 50 ng/L (<or=60)
--- NOTE | 2022-05-09 14:11 | ED.GENADUL_ITS ---
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, Type 2 diabetes mellitus, Acute UTI, Hypoglycemia Admit Date/Time: 05/11/22 15:54 Admit Provider: Aba Talley Attending Provider: Aba Talley Primary Care Provider: Rosalie Joya ED Provider: Charlene Quintana Discharge Data Discharge Date/Time-TO BE ENTERED AT DEPARTURE: 05/09/22 17:49 Medical Decision Making <SHRAVAN Tomas - Last Filed: 05/10/22 09:04> dnr/dni cta pe and ct head without acute abnormality per rad review glucose 59, gave 12.5 d50 post hypoglycemia wiht glucose gel remains weak and called for admission pending urine micro Dr Talley requests pt assessment for weakness family unable to assist pt at home and lives in residence pt with UTI and weakness, will need admission for observation family agreeable to admission at this time Patient initially signed out to me pending PT consult and admission. These have been completed before my care of the patient and patient had already been admitted. Please see previous documentation for all other care and plan of patient. Medical Records Medical records reviewed: Yes I reviewed the patient's medical records. Lab Data Lab results reviewed: Yes I reviewed the patient's lab results. <Oracio Simmons NP - Last Filed: 05/11/22 17:21> dnr/dni cta pe and ct head without acute abnormality per rad review glucose 59, gave 12.5 d50 post hypoglycemia wiht glucose gel remains weak and called for admission pending urine micro Dr Talley requests pt assessment for weakness family unable to assist pt at home and lives in residence Patient initially signed out to me pending PT consult and admission. These have been completed before my care of the patient and patient had already been admitted. Please see previous documentation for all other care and plan of patient. HPI <SHRAVAN Tomas - Last Filed: 05/10/22 09:04> General Date/Time Provider Initiated Documentation: 05/09/22 10:38 . HPI Narrative: this 77 yo female with history of high-grade glioma, cerebral edema, right-sided weakness, chronic kidney disease, coronary artery disease, hypertension, type 2 diabetes, vitamin D deficiency presents with report of right leg swelling, shortness of breath for 2-3 days, and increased pain and weakness. recieved chemo 2 days ago and radiation yesterday. denies hx of coagulopathy. denies significant new weakness or fever. has been on steroids and family reports irradic blood glucose. denies any pain complaints. Related Data Home Medications Medication Instructions Recorded Confirmed blood sugar diagnostic (OneTouch 09/08/15 05/08/22 Ultra Test strips) melatonin 3 mg tablet 3 mg PO HS PRN 01/07/19 05/09/22 allopurinol 300 mg tablet 300 mg PO DAILY #90 tabs 05/24/21 05/09/22 dulaglutide 1.5 mg/0.5 mL 1.5 mg (0.5 mL) subcut QWEEK #12 05/24/21 05/09/22 subcutaneous pen injector SYRGS (Trulicity) bupropion HCl 300 mg 24 hr tablet, 300 mg PO QAM #90 tabs 08/02/21 05/09/22 extended release gabapentin 300 mg capsule 300 mg PO BID PRN muscle spasm 08/23/21 05/09/22 #180 caps triamcinolone acetonide 0.5 % 1 applic topical BID PRN psoriasis 12/28/21 05/09/22 topical ointment #15 grams pantoprazole 20 mg tablet,delayed 40 mg PO DAILY 04/15/22 05/09/22 release pramipexole 0.5 mg tablet 0.75 mg PO QHS 04/15/22 05/09/22 sulfamethoxazole 800 1 tab PO DIRECTED 04/15/22 05/09/22 mg-trimethoprim 160 mg tablet glucagon HCl 1 mg solution for 1 mg subcut Q20M PRN #1 ea 04/19/22 05/09/22 injection (Glucagon (HCl) Emergency Kit) glucose 5 % oral solution 10 g (200 mL) PO ONCE PRN #354 mL 04/19/22 05/09/22 insulin NPH isoph U-100 human 100 25 unit (0.25 mL) subcut BID #15 mL 04/19/22 05/09/22 unit/mL (3 mL) subcutaneous pen (Humulin N NPH U-100 Insulin KwikPen) insulin aspart U-100 100 unit/mL 1 sliding scale dose subcut 04/19/22 05/09/22 (3 mL) subcutaneous pen (Novolog USEASDIRECTD #15 mL Flexpen U-100 Insulin aspart) insulin glargine 100 unit/mL (3 10 unit (0.1 mL) subcut HS #15 mL 04/19/22 05/09/22 mL) subcutaneous pen (Lantus Solostar U-100 Insulin) loratadine 10 mg tablet 10 mg PO DAILY PRN PRN #90 tabs 04/19/22 05/09/22 pen needle, diabetic 31 gauge x #100 ea 04/20/22 05/08/22 1/ (Lite Touch Insulin Pen [place]) temozolomide 140 mg capsule 140 mg PO DAILY 04/24/22 05/08/22 (Temodar) temozolomide 20 mg capsule 20 mg PO DAILY 04/24/22 05/08/22 flash glucose scanning reader #1 ea 04/26/22 05/08/22 (FreeStyle [place]) flash glucose sensor (FreeStyle #1 ea 04/26/22 05/08/22 Nusrat 2 Sensor kit) nitroglycerin 0.4 mg sublingual 0.4 mg sublingual PRN PRN chest 04/26/22 05/09/22 tablet (Nitrostat) pain #30 tabs clonazepam 0.5 mg tablet 0.5 mg PO BID 05/09/22 dexamethasone 4 mg tablet 6 mg PO BID 05/09/22 dulaglutide 1.5 mg/0.5 mL 1.5 mg subcut QWEEK 05/09/22 05/09/22 subcutaneous pen injector (Trulicity) lacosamide 100 mg tablet (Vimpat) 100 mg PO BID 05/09/22 levetiracetam 1,000 mg tablet 1 tab PO TID 05/09/22 05/09/22 Previous Rx's Medication Instructions Recorded allopurinol 300 mg tablet 300 mg PO DAILY #90 tabs 05/24/21 dulaglutide 1.5 mg/0.5 mL 1.5 mg (0.5 mL) subcut QWEEK #12 05/24/21 subcutaneous pen injector SYRGS (Trulicity) bupropion HCl 300 mg 24 hr tablet, 300 mg PO QAM #90 tabs 08/02/21 extended release gabapentin 300 mg capsule 300 mg PO BID PRN muscle spasm 08/23/21 #180 caps triamcinolone acetonide 0.5 % 1 applic topical BID PRN psoriasis 12/28/21 topical ointment #15 grams glucagon HCl 1 mg solution for 1 mg subcut Q20M PRN #1 ea 04/19/22 injection (Glucagon (HCl) Emergency Kit) glucose 5 % oral solution 10 g (200 mL) PO ONCE PRN #354 mL 04/19/22 insulin NPH isoph U-100 human 100 25 unit (0.25 mL) subcut BID #15 mL 04/19/22 unit/mL (3 mL) subcutaneous pen (Humulin N NPH U-100 Insulin KwikPen) insulin aspart U-100 100 unit/mL 1 sliding scale dose subcut 04/19/22 (3 mL) subcutaneous pen (Novolog USEASDIRECTD #15 mL Flexpen U-100 Insulin aspart) insulin glargine 100 unit/mL (3 10 unit (0.1 mL) subcut HS #15 mL 04/19/22 mL) subcutaneous pen (Lantus Solostar U-100 Insulin) loratadine 10 mg tablet 10 mg PO DAILY PRN PRN #90 tabs 04/19/22 pen needle, diabetic 31 gauge x #100 ea 04/20/22 1/4 (Lite Touch Insulin Pen [place]) flash glucose scanning reader #1 ea 04/26/22 (FreeStyle [place]) flash glucose sensor (FreeStyle #1 ea 04/26/22 Nusrat 2 Sensor kit) nitroglycerin 0.4 mg sublingual 0.4 mg sublingual PRN PRN chest 04/26/22 tablet (Nitrostat) pain #30 tabs Allergies Allergy/AdvReac Type Severity Reaction Status Date / Time metformin Allergy Severe unknown Verified 05/09/22 10:57 Penicillins Allergy Unknown unknown Verified 05/09/22 10:57 rofecoxib [From Vioxx] Allergy Unknown unknown Verified 05/09/22 10:57 tolmetin sodium Allergy Unknown unknown Verified 05/09/22 10:57 [From Tolectin] marijuana (cannabis) AdvReac Intermediate vomitng Verified 05/09/22 10:57 [marijuana] celecoxib [From Celebrex] AdvReac Unknown kindey Verified 05/09/22 10:57 NSAIDS (Non-Steroidal AdvReac Unknown kidney Verified 05/09/22 10:57 Anti-Inflamma General Stated Complaint: Vascular SAHRA: 2 Review of Systems <SHRAVAN Tomas - Last Filed: 05/10/22 09:04> Narrative: limited secondary to mental status PFSH <SHRAVAN Tomas - Last Filed: 05/10/22 09:04> All Active Problems (Updated 05/11/22 @ 14:54 by Wanda Ibarra NP) Palliative care patient (Acute) POLST (Physician Orders for Life-Sustaining Treatment) (Acute) DNI (do not intubate) (Acute) DNR (do not resuscitate) (Acute) Discharge planning issues (Acute) Acute UTI (Acute) Hypoglycemia (Acute) Right rotator cuff tear (Acute ~04/2022) 05/04/22 Hem/Oncology Seizures (Acute ~03/2022) 04/25/22 Hem/Onc Note, Dr Nolan 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 (Acute ~02/2022) 03/[place]/22 [facility] [facility] Neuro/Onc treatments discussed, F/U pending treatment decision [facility] Onc Cerebral edema (Acute) Weakness on right side of face (Acute) Chronic kidney disease (CKD) stage G3a/A1, moderately decreased glomerular filtration rate (GFR) between 45-59 mL/min/1.73 square meter and albuminuria creatinine ratio less than 30 mg/g (Acute 02/17/15) Type 2 diabetes mellitus (Acute 02/17/15) Complete tear of right rotator cuff (Chronic 01/17/18) Hypertension (Chronic) NSTEMI (non-ST elevated myocardial infarction) (Acute 06/18/18) Hyperlipidemia (Acute) Restless legs syndrome (Acute 02/08/13) Sleep Study 12/2012: abundant periodic limb movements causing signficant sleep fragmentation; no sleep apnea; Hyperuricemia without signs of inflammatory arthritis and tophaceous disease (Acute) Psoriasis (Chronic) Former Cigarette Smoker (Chronic ~2018) quit in 2019 following [place] Osteoarthritis of hands, bilateral (Acute) Other recurrent depressive disorders (Acute 02/01/15) Vitamin D deficiency (Acute 02/17/15) Myalgia (Acute 03/27/17) Morbid obesity (Acute 02/17/15) Marijuana use (Acute 09/08/15) Rice Krispie bars w/marijuana Low back pain (Acute 02/01/15) Fatigue (Acute 02/17/15) Environmental allergies (Acute 02/17/15) Edema (Acute 02/17/15) Medical History Carpal tunnel syndrome, left (01/17/18) Cataracts, bilateral Mild visually significant cataracts 01/06/21 Disorder of tongue (02/01/15) Generalized weakness Hip pain (02/01/15) Insomnia (02/17/15) Left medial knee pain (01/2019) Fell in the beginning of January, w/o clear twisting/injury of knee, but knee started hurting 2 weeks later. Started aching @ night .. then pain increased, jose with walking. Improved today post CBD oil and recent rest. But tender. Recovery may be delayed 2' walking, standing @ yard sale... T2DM (type 2 diabetes mellitus) Tobacco abuse quit 2017, occasionally since then Surgical History Endoscopic Carpal Tunnel release (03/13/18) Left History of umbilical hernia repair (~2001) Tonsillectomy and adenoidectomy (02/17/1954) Family History Mother Osteoporosis Arthritis Heart disease Stroke Father Diabetes Arthritis Heart disease Emphysema lung Stroke Sister Diabetes Arthritis Heart disease Mental disorder Social History Smoking/Tobacco Use Status: Former Tobacco Use Quit Date: 05/31/18 Tobacco: How many years used: 45 Smoking risk assessment performed?: Yes Alcohol Intake: current Alcohol Intake frequency: a few times a month Drug use: Occasionally Substance use type: does not use Household members: none Housing: apartment Number of Children: 4 Communication Needs: Corrective Lenses What is your relationship status?: Panel score (0-1 are the most socially isolated patients): 0 What type of physical activity do you participate in: none Seatbelt use: always Drive intox or ride w/intox subway train driver: No Working smoke detector in home: Yes Fire extinguisher in home: Yes Carbon monox detector in home: Yes Do you feel safe at home: Yes Do you feel safe in your relationship?: Yes Exam <SHRAVAN Tomas - Last Filed: 05/10/22 09:04> Const General: cooperative and comfortable Orientation: alert Limitations: altered mental status HENMT Head: normal to inspection Mouth: oral mucosae normal Eyes Pupils: PERRL Resp Effort & Inspection: normal respiratory effort Auscultation: clear to auscultation bilaterally Cardio Rate: regular rate Rhythm: regular rhythm GI Inspection: normal to inspection Auscultation: normal bowel sounds Skin General skin exam: no rashes or lesions noted Neuro General: patient alert Cranial Nerves: tongue midline Cognition: normal cognition Speech: other Extrem Other: distal pulses intact swelling noted RLE Course <SHRAVAN Tomas Last Filed: 05/10/22 09:04> Vital Signs Vital signs: Vital Signs Temperature 36.4 C L 05/09/22 10:44 Pulse 103 H 05/09/22 10:44 Respiratory Rate 19 05/09/22 10:44 Blood Pressure 144/73 H 05/09/22 10:44 Pulse Oximetry 95 05/09/22 10:44 Temperature 36.4 C L 05/09/22 10:44 Temperature Source Temporal Artery Scan 05/09/22 10:44 Pulse 103 H 05/09/22 10:44 Respiratory Rate 12 05/09/22 10:51 Respiratory Effort Non-Labored 05/09/22 10:51 Respiratory Depth Normal 05/09/22 10:51 Respiratory Pattern Normal 05/09/22 10:51 Blood Pressure 144/73 H 05/09/22 10:44 Blood Pressure Position Sitting 05/09/22 10:44 Pulse Oximetry 95 05/09/22 10:44 Oxygen Delivery Method Room Air 05/09/22 10:44 Oxygen Flow Rate 0 05/09/22 10:44 Pain Level 0 05/09/22 10:51 Lab/Test Results Lab/Test Results: Laboratory Tests Range/Units 05/09/22 05/09/22 05/09/22 11:07 11:08 11:08 WBC Cancelled RBC Cancelled Hgb Cancelled Hct Cancelled MCV Cancelled MCH Cancelled MCHC Cancelled RDW Cancelled Plt Count Cancelled MPV Cancelled Immature Gran % Cancelled Neutrophils % Cancelled Band Neutrophils % Cancelled Lymphocytes % Cancelled Atypical Lymphs % Cancelled Monocytes % Cancelled Eosinophils % Cancelled Basophils % Cancelled Metamyelocytes % Cancelled Myelocytes % Cancelled Promyelocytes % Cancelled Other Cells % Cancelled Nucleated RBC % Cancelled Absolute Neutrophils Cancelled Absolute Lymphocytes Cancelled Absolute Monocytes Cancelled Absolute Eosinophils Cancelled Absolute Basophils Cancelled RBC Morphology Cancelled Polychromasia Cancelled Hypochromasia Cancelled Poikilocytosis Cancelled Basophilic Stippling Cancelled Anisocytosis Cancelled Microcytosis Cancelled Macrocytosis Cancelled Spherocytes Cancelled Tear Drop Cells Cancelled Ovalocytes Cancelled Stomatocytes Cancelled [place] Bodies Cancelled Alexandra Cells/Echinocytes Cancelled Acanthocytes (Spur) Cancelled Schistocytes Cancelled VBG pH (7.31-7.41) VBG pCO2 (41-51) mmHg VBG pO2 mmHg VBG HCO3 (23-28) mmol/L VBG Total CO2 (24-29) mmol/L VBG O2 Saturation % VBG Base Excess (-2-3) mmol/L Sodium Cancelled Potassium Cancelled Chloride Cancelled Carbon Dioxide Cancelled Anion Gap Cancelled BUN Cancelled Creatinine Cancelled Estimated GFR/1.73 m2 Cancelled Glucose Cancelled Calcium Cancelled Magnesium Cancelled Total Bilirubin Cancelled AST Cancelled ALT Cancelled Alkaline Phosphatase Cancelled Troponin I Cancelled Total Protein Cancelled Albumin Cancelled COVID-19 Source Range/Units 05/09/22 05/09/22 05/09/22 13:10 13:10 13:10 WBC 7.27 RBC 3.80 L Hgb 12.1 Hct 37.0 MCV 97 H MCH 31.8 MCHC 32.7 RDW 15.7 H Plt Count 110 L MPV 10.2 Immature Gran % 3.3 Neutrophils % 85.3 Band Neutrophils % Lymphocytes % 7.7 Atypical Lymphs % Monocytes % 3.3 Eosinophils % 0.1 Basophils % 0.3 Metamyelocytes % Myelocytes % Promyelocytes % Other Cells % Nucleated RBC % 0.0 Absolute Neutrophils 6.20 Absolute Lymphocytes 0.56 L Absolute Monocytes 0.24 Absolute Eosinophils 0.01 Absolute Basophils 0.02 RBC Morphology Polychromasia Hypochromasia Poikilocytosis Basophilic Stippling Anisocytosis Microcytosis Macrocytosis Spherocytes Tear Drop Cells Ovalocytes Stomatocytes [place] Bodies [place] Cells/Echinocytes Acanthocytes (Spur) Schistocytes VBG pH (7.31-7.41) 7.48 H VBG pCO2 (41-51) mmHg 40 L VBG pO2 mmHg 63 VBG HCO3 (23-28) mmol/L 30 H VBG Total CO2 (24-29) mmol/L 27 VBG O2 Saturation % 93 VBG Base Excess (-2-3) mmol/L 7 H Sodium 138 Potassium 4.5 Chloride 103 Carbon Dioxide 27.7 Anion Gap 7.3 BUN 24 H Creatinine 0.7 Estimated GFR/1.73 m2 >= 60.00 Glucose 67 L Calcium 8.8 Magnesium 1.7 L Total Bilirubin 0.8 AST 33 ALT 51 Alkaline Phosphatase 53 Troponin I < 50 Total Protein 5.9 L Albumin 2.7 L COVID-19 Source Range/Units 05/09/22 13:11 WBC RBC Hgb Hct MCV MCH MCHC RDW Plt Count MPV Immature Gran % Neutrophils % Band Neutrophils % Lymphocytes % Atypical Lymphs % Monocytes % Eosinophils % Basophils % Metamyelocytes % Myelocytes % Promyelocytes % Other Cells % Nucleated RBC % Absolute Neutrophils Absolute Lymphocytes Absolute Monocytes Absolute Eosinophils Absolute Basophils RBC Morphology Polychromasia Hypochromasia Poikilocytosis Basophilic Stippling Anisocytosis Microcytosis Macrocytosis Spherocytes Tear Drop Cells Ovalocytes Stomatocytes [place] Bodies [place] Cells/Echinocytes Acanthocytes (Spur) Schistocytes VBG pH (7.31-7.41) VBG pCO2 (41-51) mmHg VBG pO2 mmHg VBG HCO3 (23-28) mmol/L VBG Total CO2 (24-29) mmol/L VBG O2 Saturation % VBG Base Excess (-2-3) mmol/L Sodium Potassium Chloride Carbon Dioxide Anion Gap BUN Creatinine Estimated GFR/1.73 m2 Glucose Calcium Magnesium Total Bilirubin AST ALT Alkaline Phosphatase Troponin I Total Protein Albumin COVID-19 Source Nasal/Nares
[2022-05-09 14:17] LABS: COVID-19 PCR Negative (Negative)
[2022-05-09] MEDS: Dextrose 50%-Water 25 GM/50 ML SYR IVP (14:34)
[2022-05-09] MEDS: Omnipaque 350 MG/ML 100 ML BTL IJ (14:44)
[2022-05-09] MEDS: Normal Saline Flush 10 ML SYR IVP ×2 (14:46→18:17)
[2022-05-09 16:18] LABS: Bilirubin Negative (Negative); Blood Negative (Negative); Clarity Sl Cloudy (Clear); Glucose Negative (Negative); Ketones Negative (Negative); Leukocyte Esterase Moderate (Negative); Nitrite Negative (Negative)
[2022-05-09 16:26] LABS: Bacteria Rare HPF (Negative); C & S Indicated? Yes; Crystals Negative HPF (Negative); Epithelial Cells Rare HPF (Negative); Mucus Negative (Negative); RBC Negative HPF (0-2); WBC >50 HPF (0-5)
--- NOTE | 2022-05-09 16:37 | PT.INNT ---
Date of service: 05/09/22 Time of Service: 16:30 PT Notes PT ED eval order cancelled by SHRAVAN Quintana as patient will be admitted to [facility] for management of UTI. Thank you for the opportunity to participate in the care of this patient. Zari Multani PT, DPT, CLT [facility] [place], [place]
[2022-05-09 16:52] LABS: Troponin I < 50 ng/L (<or=60)
[2022-05-09 17:21] LABS: Lactate 1.3 mmol/L (0.6-1.4)
[2022-05-09] MEDS: cefTRIAXone 2 GM/50 ML BAG IVPB (17:40)
--- NOTE | 2022-05-09 17:44 | HPE_ITS ---
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 Has been evaluated by palliative on 05/08/22. Increasing weakness/fatigue. Reconsult palliative for goals of care and code status discussion. Seizures d/t glioma. Cont antiseizure meds (2) Chronic kidney disease (CKD) stage G3a/A1, moderately decreased glomerular filtration rate (GFR) between 45-59 mL/min/1.73 square meter and albuminuria creatinine ratio less than 30 mg/g: Status: Acute Assessment and plan: GFR > 60. (3) Type 2 diabetes mellitus: Status: Acute Assessment and plan: Random glucose on admission was 67. Hold Lantus and NPH and monitor; restart when oral intake improves and glucose readings warrant. On Trulicity once/wk; will need to find out what day she takes this. 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 Not on antihypertensives. Monitor. Qualifiers: Hypertension type: essential hypertension Qualified Code(s): I10 - Essential (primary) hypertension (5) NSTEMI (non-ST elevated myocardial infarction): Status: Acute Assessment and plan: Past history. No current c/o CP. (6) Hyperlipidemia: Status: Acute Assessment and plan: Currently not on a lipid lowering agent. Qualifiers: Hyperlipidemia type: mixed hyperlipidemia Qualified Code(s): E78.2 - Mixed hyperlipidemia History of Present Illness History of Present Illness Chief Complaint: Shortness of breath and increased fatigue Narrative: This is a 77 yo female with a PMH of a high grade glioma, CKD stage G3a/A1, DM2, HTN, NSTEMI, HLD, RLS Psoriasis, hyperuricemia w/o inflammatory arthritis, pedal edema. She presented to the ED with family reporting increasing RLE swelling, shortness of breath and increased fatigue for 2-3 days. She did receive chemotherapy 2 days prior to arrival and radiation therapy the day before arrival. No fever. No cough/sputum. No N/V/abd pain. CTA chest w/o pulmonary emboli or other acute findings. CT head unremarkable. Glucose 59. Given 12.5 D50 with glucose gel w/o improvement in fatigue/generalized weakness. Urine with moderate leukocyte esterase, > 50 WBCs, rate bacteria and rare epith. cells. Rocephin initiated in the ED. 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 (Acute ~02/2022) [place]22 [facility] [place] Neuro/Onc treatments discussed, F/U pending treatment decision [facility] Onc Cerebral edema (Acute) Weakness on right side of face (Acute) Chronic kidney disease (CKD) stage G3a/A1, moderately decreased glomerular filtration rate (GFR) between 45-59 mL/min/1.73 square meter and albuminuria creatinine ratio less than 30 mg/g (Acute 02/17/15) Type 2 diabetes mellitus (Acute 02/17/15) Complete tear of right rotator cuff (Chronic 01/17/18) Hypertension (Chronic) NSTEMI (non-ST elevated myocardial infarction) (Acute 06/18/18) Hyperlipidemia (Acute) Restless legs syndrome (Acute 02/08/13) Sleep Study 12/2012: abundant periodic limb movements causing signficant sleep fragmentation; no sleep apnea; Hyperuricemia without signs of inflammatory arthritis and tophaceous disease (Acute) Psoriasis (Chronic) Former Cigarette Smoker (Chronic ~2018) quit in 2019 following [place] Osteoarthritis of hands, bilateral (Acute) Other recurrent depressive disorders (Acute 02/01/15) Vitamin D deficiency (Acute 02/17/15) Myalgia (Acute 03/27/17) Morbid obesity (Acute 02/17/15) Marijuana use (Acute 09/08/15) Rice Krispie bars w/marijuana Low back pain (Acute 02/01/15) Fatigue (Acute 02/17/15) Environmental allergies (Acute 02/17/15) Edema (Acute 02/17/15) Medical History Carpal tunnel syndrome, left (01/17/18) Cataracts, bilateral Mild visually significant cataracts 01/06/21 Disorder of tongue (02/01/15) Generalized weakness Hip pain (02/01/15) Insomnia (02/17/15) Left medial knee pain (01/2019) Fell in the beginning of January, w/o clear twisting/injury of knee, but knee started hurting 2 weeks later. Started aching @ night .. then pain increased, jose with walking. Improved today post CBD oil and recent rest. But tender. Recovery may be delayed 2' walking, standing @ yard sale... T2DM (type 2 diabetes mellitus) Tobacco abuse quit 2017, occasionally since then Surgical History Endoscopic Carpal Tunnel release (03/13/18) Left History of umbilical hernia repair (~2001) Tonsillectomy and adenoidectomy (02/17/1954) Family History Mother Osteoporosis Arthritis Heart disease Stroke Father Diabetes Arthritis Heart disease Emphysema lung Stroke Sister Diabetes Arthritis Heart disease Mental disorder Social History Smoking/Tobacco Use Status: Former Tobacco Use Quit Date: 05/31/18 Tobacco: How many years used: 45 Smoking risk assessment performed?: Yes Alcohol Intake: current Alcohol Intake frequency: a few times a month Drug use: Occasionally Substance use type: does not use Household members: none Housing: apartment Number of Children: 4 Communication Needs: Corrective Lenses What is your relationship status?: Panel score (0-1 are the most socially isolated patients): 0 What type of physical activity do you participate in: none Seatbelt use: always 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 Working smoke detector in home: Yes Fire extinguisher in home: Yes Carbon monox detector in home: Yes Do you feel safe at home: Yes Do you feel safe in your relationship?: Yes Meds Allergies and Home Medications Allergies Allergy/AdvReac Type Severity Reaction Status Date / Time metformin Allergy Severe unknown Verified 05/09/22 10:57 Penicillins Allergy Unknown unknown Verified 05/09/22 10:57 rofecoxib [From Vioxx] Allergy Unknown unknown Verified 05/09/22 10:57 tolmetin sodium Allergy Unknown unknown Verified 05/09/22 10:57 [From Tolectin] marijuana (cannabis) AdvReac Intermediate vomitng Verified 05/09/22 10:57 [marijuana] celecoxib [From Celebrex] AdvReac Unknown kindey Verified 05/09/22 10:57 NSAIDS (Non-Steroidal AdvReac Unknown kidney Verified 05/09/22 10:57 Anti-Inflamma Home Medications Medication Instructions Recorded Confirmed Type blood sugar diagnostic (OneTouch 09/08/15 05/08/22 History Ultra Test strips) melatonin 3 mg tablet 3 mg PO HS PRN 01/07/19 05/09/22 History allopurinol 300 mg tablet 300 mg PO DAILY #90 tabs 05/24/21 05/09/22 Rx dulaglutide 1.5 mg/0.5 mL 1.5 mg (0.5 mL) subcut QWEEK #12 05/24/21 05/09/22 Rx subcutaneous pen injector SYRGS (Trulicity) bupropion HCl 300 mg 24 hr tablet, 300 mg PO QAM #90 tabs 08/02/21 05/09/22 Rx extended release gabapentin 300 mg capsule 300 mg PO BID PRN muscle spasm 08/23/21 05/09/22 Rx #180 caps triamcinolone acetonide 0.5 % 1 applic topical BID PRN psoriasis 12/28/21 05/09/22 Rx topical ointment #15 grams pantoprazole 20 mg tablet,delayed 40 mg PO DAILY 04/15/22 05/09/22 History release pramipexole 0.5 mg tablet 0.75 mg PO QHS 04/15/22 05/09/22 History sulfamethoxazole 800 1 tab PO DIRECTED 04/15/22 05/09/22 History mg-trimethoprim 160 mg tablet glucagon HCl 1 mg solution for 1 mg subcut Q20M PRN #1 ea 04/19/22 05/09/22 Rx injection (Glucagon (HCl) Emergency Kit) glucose 5 % oral solution 10 g (200 mL) PO ONCE PRN #354 mL 04/19/22 05/09/22 Rx insulin NPH isoph U-100 human 100 25 unit (0.25 mL) subcut BID #15 mL 04/19/22 05/09/22 Rx unit/mL (3 mL) subcutaneous pen (Humulin N NPH U-100 Insulin KwikPen) insulin aspart U-100 100 unit/mL 1 sliding scale dose subcut 04/19/22 05/09/22 Rx (3 mL) subcutaneous pen (Novolog USEASDIRECTD #15 mL Flexpen U-100 Insulin aspart) insulin glargine 100 unit/mL (3 10 unit (0.1 mL) subcut HS #15 mL 04/19/22 05/09/22 Rx mL) subcutaneous pen (Lantus Solostar U-100 Insulin) loratadine 10 mg tablet 10 mg PO DAILY PRN PRN #90 tabs 04/19/22 05/09/22 Rx pen needle, diabetic 31 gauge x #100 ea 04/20/22 05/08/22 Rx 1/4 (Lite Touch Insulin Pen [place]) temozolomide 140 mg capsule 140 mg PO DAILY 04/24/22 05/08/22 History (Temodar) temozolomide 20 mg capsule 20 mg PO DAILY 04/24/22 05/08/22 History flash glucose scanning reader #1 ea 04/26/22 05/08/22 Rx (FreeStyle Nusrat 2 Russell) flash glucose sensor (FreeStyle #1 ea 04/26/22 05/08/22 Rx Nusrat 2 Sensor kit) nitroglycerin 0.4 mg sublingual 0.4 mg sublingual PRN PRN chest 04/26/22 05/09/22 Rx tablet (Nitrostat) pain #30 tabs clonazepam 0.5 mg tablet 0.5 mg PO BID 05/09/22 History dexamethasone 4 mg tablet 6 mg PO BID 05/09/22 History dulaglutide 1.5 mg/0.5 mL 1.5 mg subcut QWEEK 05/09/22 05/09/22 History subcutaneous pen injector (Trulicity) lacosamide 100 mg tablet (Vimpat) 100 mg PO BID 05/09/22 History levetiracetam 1,000 mg tablet 1 tab PO TID 05/09/22 05/09/22 History Exam Narrative Exam Narrative: Appears fatigued. Const General: cooperative and no acute distress Nutritional Appearance: obese Orientation: awake, oriented to person and oriented to place Eyes General: appearance normal, both eyes and all related structures Sclera: sclerae normal Resp Effort & Inspection: normal respiratory effort Auscultation: clear to auscultation bilaterally Cardio Jugular venous pressure: no JVD Rate: regular rate Rhythm: regular rhythm Heart Sounds: S1 normal and S2 normal GI Inspection: obesity Palpation: soft and nontender Skin General skin exam: no rashes or lesions noted Extrem General: no pedal edema and no calf tenderness Psych Appearance: grossly normal Speech and Movement: delayed speech Affect: blunted Results Labs Result diagrams: 05/09/22 13:10 05/09/22 13:10 Labs: Laboratory Results - last 24 hr 05/09/22 05/09/22 05/09/22 11:07 11:08 11:08 WBC Cancelled RBC Cancelled Hgb Cancelled Hct Cancelled MCV Cancelled MCH Cancelled MCHC Cancelled RDW Cancelled Plt Count Cancelled MPV Cancelled Immature Gran % Cancelled Neutrophils % Cancelled Band Neutrophils % Cancelled Lymphocytes % Cancelled Atypical Lymphs % Cancelled Monocytes % Cancelled Eosinophils % Cancelled Basophils % Cancelled Metamyelocytes % Cancelled Myelocytes % Cancelled Promyelocytes % Cancelled Other Cells % Cancelled Nucleated RBC % Cancelled Absolute Neutrophils Cancelled Absolute Lymphocytes Cancelled Absolute Monocytes Cancelled Absolute Eosinophils Cancelled Absolute Basophils Cancelled RBC Morphology Cancelled Polychromasia Cancelled Hypochromasia Cancelled Poikilocytosis Cancelled Basophilic Stippling Cancelled Anisocytosis Cancelled Microcytosis Cancelled Macrocytosis Cancelled Spherocytes Cancelled Tear Drop Cells Cancelled Ovalocytes Cancelled Stomatocytes Cancelled [place] Bodies Cancelled [place] Cells/Echinocytes Cancelled Acanthocytes (Spur) Cancelled Schistocytes Cancelled VBG pH VBG pCO2 VBG pO2 VBG HCO3 VBG Total CO2 VBG O2 Saturation VBG Base Excess VBG Lactate Sodium Cancelled Potassium Cancelled Chloride Cancelled Carbon Dioxide Cancelled Anion Gap Cancelled BUN Cancelled Creatinine Cancelled Estimated GFR/1.73 m2 Cancelled Glucose Cancelled Calcium Cancelled Magnesium Cancelled Total Bilirubin Cancelled AST Cancelled ALT Cancelled Alkaline Phosphatase Cancelled Troponin I Cancelled Total Protein Cancelled Albumin Cancelled Urine Color Urine Clarity Urine pH Ur Specific [place] Urine Protein Urine Ketones Urine Blood Urine Nitrite Urine Bilirubin Urine Urobilinogen Ur Leukocyte Esterase Urine RBC Urine WBC Ur Epithelial Cells Urine Crystals Urine Bacteria Urine Mucus Ur Culture Indicated? Urine Glucose COVID-19 Source SARS-CoV-2 (PCR) 05/09/22 05/09/22 05/09/22 13:10 13:10 13:10 WBC 7.27 RBC 3.80 L Hgb 12.1 Hct 37.0 MCV 97 H MCH 31.8 MCHC 32.7 RDW 15.7 H Plt Count 110 L MPV 10.2 Immature Gran % 3.3 Neutrophils % 85.3 Band Neutrophils % Lymphocytes % 7.7 Atypical Lymphs % Monocytes % 3.3 Eosinophils % 0.1 Basophils % 0.3 Metamyelocytes % Myelocytes % Promyelocytes % Other Cells % Nucleated RBC % 0.0 Absolute Neutrophils 6.20 Absolute Lymphocytes 0.56 L Absolute Monocytes 0.24 Absolute Eosinophils 0.01 Absolute Basophils 0.02 RBC Morphology Polychromasia Hypochromasia Poikilocytosis Basophilic Stippling Anisocytosis Microcytosis Macrocytosis Spherocytes Tear Drop Cells Ovalocytes Stomatocytes [place] Bodies [place] Cells/Echinocytes Acanthocytes (Spur) Schistocytes VBG pH 7.48 H VBG pCO2 40 L VBG pO2 63 VBG HCO3 30 H VBG Total CO2 27 VBG O2 Saturation 93 VBG Base Excess 7 H VBG Lactate Sodium 138 Potassium 4.5 Chloride 103 Carbon Dioxide 27.7 Anion Gap 7.3 BUN 24 H Creatinine 0.7 Estimated GFR/1.73 m2 >= 60.00 Glucose 67 L Calcium 8.8 Magnesium 1.7 L Total Bilirubin 0.8 AST 33 ALT 51 Alkaline Phosphatase 53 Troponin I < 50 Total Protein 5.9 L Albumin 2.7 L Urine Color Urine Clarity Urine pH Ur Specific [place] Urine Protein Urine Ketones Urine Blood Urine Nitrite Urine Bilirubin Urine Urobilinogen Ur Leukocyte Esterase Urine RBC Urine WBC Ur Epithelial Cells Urine Crystals Urine Bacteria Urine Mucus Ur Culture Indicated? Urine Glucose COVID-19 Source SARS-CoV-2 (PCR) 05/09/22 05/09/22 05/09/22 13:11 16:12 16:21 WBC RBC Hgb Hct MCV MCH MCHC RDW Plt Count MPV Immature Gran % Neutrophils % Band Neutrophils % Lymphocytes % Atypical Lymphs % Monocytes % Eosinophils % Basophils % Metamyelocytes % Myelocytes % Promyelocytes % Other Cells % Nucleated RBC % Absolute Neutrophils Absolute Lymphocytes Absolute Monocytes Absolute Eosinophils Absolute Basophils RBC Morphology Polychromasia Hypochromasia Poikilocytosis Basophilic Stippling Anisocytosis Microcytosis Macrocytosis Spherocytes Tear Drop Cells Ovalocytes Stomatocytes [place] Bodies Alexandra Cells/Echinocytes Acanthocytes (Spur) Schistocytes VBG pH VBG pCO2 VBG pO2 VBG HCO3 VBG Total CO2 VBG O2 Saturation VBG Base Excess VBG Lactate Sodium Potassium Chloride Carbon Dioxide Anion Gap BUN Creatinine Estimated GFR/1.73 m2 Glucose Calcium Magnesium Total Bilirubin AST ALT Alkaline Phosphatase Troponin I < 50 Total Protein Albumin Urine Color Yellow Urine Clarity Sl Cloudy Urine pH 7.0 Ur Specific [place] 1.020 Urine Protein Negative Urine Ketones Negative Urine Blood Negative Urine Nitrite Negative Urine Bilirubin Negative Urine Urobilinogen 1.0 H Ur Leukocyte Esterase Moderate H Urine RBC Negative Urine WBC >50 H Ur Epithelial Cells Rare Urine Crystals Negative Urine Bacteria Rare Urine Mucus Negative Ur Culture Indicated? Yes Urine Glucose Negative COVID-19 Source Nasal/Nares SARS-CoV-2 (PCR) Negative 05/09/22 17:12 WBC RBC Hgb Hct MCV MCH MCHC RDW Plt Count MPV Immature Gran % Neutrophils % Band Neutrophils % Lymphocytes % Atypical Lymphs % Monocytes % Eosinophils % Basophils % Metamyelocytes % Myelocytes % Promyelocytes % Other Cells % Nucleated RBC % Absolute Neutrophils Absolute Lymphocytes Absolute Monocytes Absolute Eosinophils Absolute Basophils RBC Morphology Polychromasia Hypochromasia Poikilocytosis Basophilic Stippling Anisocytosis Microcytosis Macrocytosis Spherocytes Tear Drop Cells Ovalocytes Stomatocytes [place] Bodies [place] Cells/Echinocytes Acanthocytes (Spur) Schistocytes VBG pH VBG pCO2 VBG pO2 VBG HCO3 VBG Total CO2 VBG O2 Saturation VBG Base Excess VBG Lactate 1.3 Sodium Potassium Chloride Carbon Dioxide Anion Gap BUN Creatinine Estimated GFR/1.73 m2 Glucose Calcium Magnesium Total Bilirubin AST ALT Alkaline Phosphatase Troponin I Total Protein Albumin Urine Color Urine Clarity Urine pH Ur Specific [place] Urine Protein Urine Ketones Urine Blood Urine Nitrite Urine Bilirubin Urine Urobilinogen Ur Leukocyte Esterase Urine RBC Urine WBC Ur Epithelial Cells Urine Crystals Urine Bacteria Urine Mucus Ur Culture Indicated? Urine Glucose COVID-19 Source SARS-CoV-2 (PCR) Last Vital Signs Temp 36.4 C L 05/09/22 10:44 Pulse 87 05/09/22 14:16 Resp 12 05/09/22 14:30 BP 155/81 H 07/12/22 14:16 Pulse Ox 96 05/09/22 14:30
[2022-05-09] MEDS: Enoxaparin 40 MG/0.4 ML SYR SC (18:16)
[2022-05-09] MEDS: Normal Saline 1,000 ML 80 ML IV (18:33)
[2022-05-09] MEDS: levETIRAcetam 500 MG TAB 1000 MG PO (21:02)
[2022-05-09] MEDS: Lacosamide 100 MG TAB PO (21:03)
[2022-05-09] MEDS: Magnesium Oxide 400 MG TAB PO (21:03)
[2022-05-09] MEDS: Dexamethasone 4 MG TAB 6 MG PO (21:03)
[2022-05-09] MEDS: clonazePAM 0.5 MG TAB PO (21:03)
[2022-05-09] MEDS: Pramipexole 0.5 MG TAB 0.75 MG PO (21:05)
[2022-05-10] MEDS: Normal Saline 1,000 ML 80 ML IV ×2 (06:56→19:15)
[2022-05-10 07:35] VITALS: BP 135/82; PULSE 86; RESP 14; TEMP 36.9; O2SAT 95
[2022-05-10] MEDS: clonazePAM 0.5 MG TAB PO ×2 (08:27→20:40)
[2022-05-10] MEDS: buPROPion-XL 150 MG TABCR 300 MG PO (08:27)
[2022-05-10] MEDS: Dexamethasone 4 MG TAB 6 MG PO ×2 (08:27→20:40)
[2022-05-10] MEDS: Lacosamide 100 MG TAB PO ×2 (08:28→20:40)
[2022-05-10] MEDS: Pantoprazole 20 MG TABCR 40 MG PO (08:28)
[2022-05-10] MEDS: Allopurinol 300 MG TAB PO (08:28)
[2022-05-10] MEDS: Magnesium Oxide 400 MG TAB PO ×2 (08:29→20:40)
[2022-05-10] MEDS: levETIRAcetam 500 MG TAB 1000 MG PO ×3 (08:29→20:40)
--- NOTE | 2022-05-10 09:34 | IN_ITS ---
Date of service: 05/10/22 Time of Service: 09:30 PT Notes Visit Reasons: [facility],High Grade Glioma Physical Therapy Inpatient Initial Evaluation Date: 05/10/2022 Referring Doctor: Aba Zamora MD PT Orders: PT CONSULT: Eval/treat Precautions: Fall. Standard. Activity as tolerated. 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 Patient is diagnosed with NSTEMI, hyperlipidemia, hypertension, cerebral edema, right-sided weakness, chronic kidney disease, coronary artery disease, and type 2 diabetes mellitus. Patient had chemotherapy 2 days prior and radiation 1 day prior to admission. Patient was seen by PT from 04/17/2022 through 04/21/2022 with ability to walk up to 8 steps using FWW with stand by assist of 1. PMHX: All Active Problems? 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 [facility] Neurosurgery 03/30/22 Neuro/Onc treatments discussed, F/U pending treatment decision St Onc Cerebral edema (Acute) Weakness on right side of face (Acute) Chronic kidney disease (CKD) stage G3a/A1, moderately decreased glomerular filtration rate (GFR) between 45-59 mL/min/1.73 square meter and albuminuria creatinine ratio less than 30 mg/g (Acute 02/17/15) Type 2 diabetes mellitus (Acute 02/17/15) Complete tear of right rotator cuff (Chronic 01/17/18) Hypertension (Chronic) NSTEMI (non-ST elevated myocardial infarction) (Acute 06/18/18) Hyperlipidemia (Acute) Restless legs syndrome (Acute 02/08/13) Sleep Study 12/2012: abundant periodic limb movements causing signficant sleep fragmentation; no sleep apnea; Hyperuricemia without signs of inflammatory arthritis and tophaceous disease (Acute) Psoriasis (Chronic) Former Cigarette Smoker (Chronic ~2018) quit in 2019 following [place] Osteoarthritis of hands, bilateral (Acute) Other recurrent depressive disorders (Acute 02/01/15) Vitamin D deficiency (Acute 02/17/15) Myalgia (Acute 03/27/17) Morbid obesity (Acute 02/17/15) Marijuana use (Acute 09/08/15) Rice Krispie bars w/marijuana Low back pain (Acute 02/01/15) Fatigue (Acute 02/17/15) Environmental allergies (Acute 02/17/15) Edema (Acute 02/17/15) Medical History? Carpal tunnel syndrome, left (01/17/18) Cataracts, bilateral Mild visually significant cataracts 01/06/21Disorder of tongue (02/01/15) Generalized weakness Hip pain (02/01/15) Insomnia (02/17/15) Left medial knee pain (01/2019) Fell in the beginning of January, w/o clear twisting/injury of knee, but knee started hurting 2 weeks later. Started aching @ night .. then pain increased, jose with walking. Improved today post CBD oil and recent rest. But tender. Recovery may be delayed 2' walking, standing @ yard sale...T2DM (type 2 diabetes mellitus) Tobacco abuse quit 2017, occasionally since then Surgical History? Endoscopic Carpal Tunnel release (03/13/18) LeftHistory of umbilical hernia repair (~2001) Tonsillectomy and adenoidectomy (02/17/1954) Social History/Home Situation: Unable to verbally respond. Has some form of aphasia? or may be a result of disease progression? Per previous PT evaluation, patient has been cared for by her two daughters and has been ambulatory for short distances with FWW. Equipment Owned/DME: FWW Subjective: Unable to verbalize responses at time of evaluation. Able to use head movements to answer yes/no questions. Mildly grimaces and grunts when R UE is moved. Objective: General Observation: Was assisted by 2 LNAS from bedside commode for toileting when PT came in. Increased lean to R in standing. Swelling in R LE more than in L. Mental Status: Alert but has some difficulty following instructions and responding verbally. Drowsy. No resting tremors in limbs/trunk. Appears confused. Pain: Some disocmforrt in R UE with ROM exercises and transfers Vital Signs: WNL as closely monitored by ursing staff ROM: Able to hold onto front bar of STEDY lift with both hands. Able to sit and stand with no increased pain expression in B LE, some pain in R UE. Followed instrcutions with leg raising with range WFL on B sides. ABle to bend at the hips for about 20 degrees while seated on chair without pain expression. Strength: Right Upper Extremity: Grossly 3-/5. Geospatial Engineer strong and functional. Left Upper Extremity: Grossly 3-/5. Geospatial Engineer weaker than L but functional. Right Lower Extremity: Grossly 3-/5 Left Lower Extremity: Grossly 3-/5 Bed Mobility/Transfers: Sit to stand with minimal assist of 2 using STEDY lift with moderate verbal cues needed Stand to sit with minimal assist of 2 using STEDY lift with moderate verbal cues needed Bed to bedside commode minimal assist of 2 using STEDY lift with moderate verbal cues needed Bedside commode to bed minimal assist of 2 using STEDY lift with moderate verbal cues needed Bed to reclining chair with minimal assist of 2 using STEDY lift with moderate verbal cues needed Reclining chair to bed with minimal assist of 2 using STEDY lift with moderate verbal cues needed Gait: Unable to perform and not safe at this time. Will reassess this afternoon when safe. Balance: Static Sitting: Fair Dynamic Sitting: Fair Static Standing: poor Dynamic Standing: Poor Special Tests: Mobility Limitations Standardized Measure [facility]-P[facility] 6 clicks Basic Mobility Inpatient Short Form: Raw Score: 7 CMS Score: 92% deficit Informed Consent/Education: Patient was instructed in purpose of PT consult and plan of care. Agreeable to proceed with established PT POC to achieve personal goals. Assessment: Confused. Unable to fully follow instructions. Unable to verbally express self. Significant functional decline from previous admission last month. Patient presents with clinical signs and symptoms consistent with current/admitting diagnoses that have resulted to mobility limitations, gait instability, generalized weakness, and overall ADL decline as demonstrated by the following impairment level findings: 1. Decreased strength to B UE/LE major muscle groups 2. Impaired sitting/standing balance 3. Impaired activity tolerance 4. Limitation of joint range of motion in B UE/LE joints 5. Aphasic 6. R LE swelling 7. Confusion Impairments are contributing to the following functional limitations: 1. Decline in bed mobility skills 2. Decline in transfer skills 3. Difficulty with ambulation without assistive device and physical assistance 4. Increased completion time for mobility ADL performance 5. Increased risk for falls 6. Difficulty with managing steps alone safely Patient is assessed as a 26283 high complexity based on the following: History: 77-year-old female with past medical history as indicated above Examination: Demonstrable impairment in strength, balance, and mobility level with underlying impairments and functional limitations as exhibited above as well as deficit score of 92%% utilizing the [facility] Mobility Inpatient Short Form Presentation: Evolving Decision Makin moderate complexity Goals: Goals X1 week 1. Supine-Sit contact guard assist 2. Sit-Supine contact guard assist 3. Sit-Stand contact guard assist 4. Stand-Sit independent contact guard assist 5. Bed-Chair independent contact guard assist 6. Chair-Bed independent contact guard assist 7. Minimal assist with gait on level surface with use of FWW for at least 30 feet without report of pain nor dyspnea 8. Good static and dynamic standing balance/tolerance Plan of Care/Treatment Plan: 1-2x/day, 7 days/week x 1 week. Plan of care has been reviewed with the PRINTER REPAIR TECHNICIAN providing the service under Physical Therapy direction. Initiate Physical Therapy intervention for pain management as needed, strengthening, bed mobility, transfers, gait, stairs, balance training, and use of assistive device. DISCHARGE RECOMMENDATIONS: [] Home with no services [] [] Home with services [specify] [] Home with outpatient PT [] [X] SNF for continued rehabilitation. Patient will benefit from detention facility placement for continued skilled physical therapy services in order to progress mobility level, strength, and balance in preparation for a safe discharge to home. [] Long-Term Care [] [] SNF versus LTC based on ability to participate and progress [] TREATMENT CODE/TIME: 28330 x 20 minutes beginning at 9:34 AM. Thank you for the opportunity to participate in the care of this patient. Zari Multani PT, DPT, CLT [facility] [place], [place]
--- NOTE | 2022-05-10 11:44 | W.INDIABCONS ---
Date of service: 05/10/22 Time of Service: 11:45 Diabetes Inpatient Consult Reason for Visit: dm DESCRIPTION/ASSESSMENT: 77 year old female admitted with UTI with hx of glioma treated with dexamethason leading to hyperglycemia and need of long acting/PNH insulin. Has Nusrat 2 continuous glucose monitor ordered. Medical chart indicates 17 lbs weight loss in last 3 months, BMI 39 indicates class 2 obesity. Will switch diet to diabetic diet in view of elevated blood sugars since yesterday. INTERVENTION: Switch to Diabetic Diet Provide education as needed PLAN: weight, po intake, labs Time Spent in Nutritional Counseling and Treatment: 0
[2022-05-10] MEDS: Sulfameth/Trimeth DS TAB 1 TAB PO (13:16)
[2022-05-10] MEDS: Insulin Aspart 300 UNITS/3 ML PEN SC ×2 (13:25→17:49)
--- NOTE | 2022-05-10 13:31 | PGE_ITS ---
Date of Service Date of service: 05/10/22 Time of Service: 13:39 Assessment and Plan Assessment and plan (1) 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: Status: Acute Assessment and plan: Receiving chemotx and radiation tx. Has last tx planned for today. Daughters plan to not reschedule. Has been evaluated by palliative on 05/08/22. Increasing weakness/fatigue. Reconsulted palliative for goals of care and code status discussion. Seizures d/t glioma. Cont antiseizure meds (2) Chronic kidney disease (CKD) stage G3a/A1, moderately decreased glomerular filtration rate (GFR) between 45-59 mL/min/1.73 square meter and albuminuria creatinine ratio less than 30 mg/g: Status: Acute Assessment and plan: GFR > 60. (3) Type 2 diabetes mellitus: Status: Acute Assessment and plan: Random glucose on admission was 67. Hold Lantus and NPH and monitor; restart when oral intake improves and glucose readings warrant. On Trulicity once/wk; will need to find out what day she takes this. Qualifiers: Diabetes mellitus half-way insulin use: without half-way use Diabetes mellitus complication status: without complication Qualified Code(s): E11.9 - Type 2 diabetes mellitus without complications (4) Hypertension: Status: Chronic Assessment and plan: SBP in the 130's-160's since admission. Not on antihypertensives. Monitor. Qualifiers: Hypertension type: essential hypertension Qualified Code(s): I10 - Essential (primary) hypertension (5) NSTEMI (non-ST elevated myocardial infarction): Status: Acute Assessment and plan: Past history. No current c/o CP. (6) Hyperlipidemia: Status: Acute Assessment and plan: Currently not on a lipid lowering agent. Qualifiers: Hyperlipidemia type: mixed hyperlipidemia Qualified Code(s): E78.2 - Mixed hyperlipidemia (7) Discharge planning issues: Status: Acute Assessment and plan: Daughters spoke with care management. Their hope is she will be able to improve enough to be able to transfer at a minimum. Planning SNF for rehab. She had a qualifying stay here in March. The plan is to have her travel to [place] for a visit then fly to [facility] with them to live permanently. They are fully aware these plans may end up not being realistic ultimately if she fails at rehab. Subjective Subjective Patient reports: tolerating a regular diet (Poor appetite) and afebrile; denies nausea, vomiting or shortness of breath Exam Narrative Exam Narrative: Appears fatigued. Speaks very little during evaluation. Const General: cooperative and no acute distress Nutritional Appearance: obese Orientation: awake, oriented to person and oriented to place Eyes General: appearance normal, both eyes and all related structures Sclera: sclerae normal Resp Effort & Inspection: normal respiratory effort Auscultation: clear to auscultation bilaterally Cardio Jugular venous pressure: no JVD Rate: regular rate Rhythm: regular rhythm Heart Sounds: S1 normal and S2 normal GI Inspection: obesity Palpation: soft and nontender Skin General skin exam: no rashes or lesions noted Extrem General: no pedal edema and no calf tenderness Psych Appearance: grossly normal Speech and Movement: delayed speech Affect: blunted Objective Last Vital Signs Temp 36.9 C 05/10/22 07:35 Pulse 86 05/10/22 07:35 Resp 14 05/10/22 07:35 BP 135/82 05/10/22 07:35 Pulse Ox 95 05/10/22 07:35 Laboratory Results - last 24 hr 05/09/22 05/09/22 05/09/22 13:10 13:10 13:11 WBC 7.27 RBC 3.80 L Hgb 12.1 Hct 37.0 MCV 97 H MCH 31.8 MCHC 32.7 RDW 15.7 H Plt Count 110 L MPV 10.2 Immature Gran % 3.3 Neutrophils % 85.3 Lymphocytes % 7.7 Monocytes % 3.3 Eosinophils % 0.1 Basophils % 0.3 Nucleated RBC % 0.0 Absolute Neutrophils 6.20 Absolute Lymphocytes 0.56 L Absolute Monocytes 0.24 Absolute Eosinophils 0.01 Absolute Basophils 0.02 VBG Lactate Sodium 138 Potassium 4.5 Chloride 103 Carbon Dioxide 27.7 Anion Gap 7.3 BUN 24 H Creatinine 0.7 Estimated GFR/1.73 m2 >= 60.00 Glucose 67 L Calcium 8.8 Magnesium 1.7 L Total Bilirubin 0.8 AST 33 ALT 51 Alkaline Phosphatase 53 Troponin I < 50 Total Protein 5.9 L Albumin 2.7 L Urine Color Urine Clarity Urine pH Ur Specific [place] Urine Protein Urine Ketones Urine Blood Urine Nitrite Urine Bilirubin Urine Urobilinogen Ur Leukocyte Esterase Urine RBC Urine WBC Ur Epithelial Cells Urine Crystals Urine Bacteria Urine Mucus Ur Culture Indicated? Urine Glucose SARS-CoV-2 (PCR) Negative 05/09/22 05/09/22 05/09/22 16:12 16:21 17:12 WBC RBC Hgb Hct MCV MCH MCHC RDW Plt Count MPV Immature Gran % Neutrophils % Lymphocytes % Monocytes % Eosinophils % Basophils % Nucleated RBC % Absolute Neutrophils Absolute Lymphocytes Absolute Monocytes Absolute Eosinophils Absolute Basophils VBG Lactate 1.3 Sodium Potassium Chloride Carbon Dioxide Anion Gap BUN Creatinine Estimated GFR/1.73 m2 Glucose Calcium Magnesium Total Bilirubin AST ALT Alkaline Phosphatase Troponin I < 50 Total Protein Albumin Urine Color Yellow Urine Clarity Sl Cloudy Urine pH 7.0 Ur Specific [place] 1.020 Urine Protein Negative Urine Ketones Negative Urine Blood Negative Urine Nitrite Negative Urine Bilirubin Negative Urine Urobilinogen 1.0 H Ur Leukocyte Esterase Moderate H Urine RBC Negative Urine WBC >50 H Ur Epithelial Cells Rare Urine Crystals Negative Urine Bacteria Rare Urine Mucus Negative Ur Culture Indicated? Yes Urine Glucose Negative SARS-CoV-2 (PCR)
--- NOTE | 2022-05-10 13:33 | PT.INTREAT ---
Date of service: 05/10/22 Time of Service: 13:33 PT Notes Visit Reasons: [facility],High Grade Glioma Physical Therapy Inpatient treatment Note Date: 05/10/2022 Precautions: Activity as tolerated. STEDY lift for all transfers at this time. Seizure-prone. Subjective: Daughters state that her baseline mobility since she went home from last admission has been assist of 1 for all transfers using FWW. They report that HH PT Sai got to doing minimal marching in place with her but she got tired easy. They elaborated that patient has not walked even short distance since last discharge from this hospital. Patient agreeable to be assisted as she was trying to attempt to get up from edge of bed without assistance which promoted daugter to call for help from nursing staff just few minutes ago prior to arrival of PT. Objective: General Observation: Increased lean to R in standing.? Swelling in R LE more than in L. R UE somewhat flaccid. Mental Status: Alert but has some difficulty following instructions and responding verbally.? No resting tremors in limbs/trunk. Pain: Some discomfort? in R UE with ROM exercises and transfers Vital Signs: WNL as closely monitored by ursing staff Bed Mobility/Transfers: Sit to stand with minimal assist of 2 using STEDY lift? with moderate verbal cues needed Stand to sit with minimal assist of 2 using STEDY lift? with moderate verbal cues needed Bed to bedside commode minimal assist of 2 using STEDY lift? with moderate verbal cues needed Bedside commode to bed minimal assist of 2 using STEDY lift? with moderate verbal cues needed Bedside commode to reclining chair with minimal assist of 2 using STEDY lift? with moderate verbal cues needed Gait: Attempted limb advancement on R but patient is unable to shift weight forward and felt balance compromised anteriorly and to the R despite use of FWW and assist of 2. Deferred further attempts at walking this afternoon due to safety issue. Weak R UE and non functional geographic information system analyst on R added to the high fall risk of attempting to walk. Balance: Static Sitting: Fair Dynamic Sitting: Fair Static Standing: Poor Dynamic Standing: Unable THERA EX: 1. Adductor squeeze x 10 2. LAQ x 10 3. Seated hip flexion (partiall, L more able to bend than R) x 10 4. Ankle DF/PF x 10 5. Trunk flexion extension while pulling on PT's hands Assessment: Able to follow instructions better this afternoon.? Unable to verbally express self.? Significant functional decline from previous admission last month. DISCHARGE RECOMMENDATIONS: [] ? Home with no services [] [] ? Home with services [specify] [] ? Home with outpatient PT [] [X] ? SNF for continued rehabilitation.? Patient will benefit from residential facility placement for continued skilled physical therapy services in order to progress mobility level, strength, and balance in preparation for a safe discharge to home. [] ? Independent Living Instructor Care [] [] ? SNF versus LTC based on ability to participate and progress [] TREATMENT CODE/TIME: 62103 x 32 minutes beginning at 13:33 PM.
[2022-05-10 15:23] VITALS: BP 134/82; PULSE 93; RESP 10; TEMP 35.9; O2SAT 96
--- NOTE | 2022-05-10 17:13 | INITIAL_ITS ---
- If Service Date Differs Date of service: 05/10/22 Time of Service: 17:13 Care Management Initial Assess REASON FOR HOSPITALIZATION:: UTI, high grade glioma PAST MEDICAL HISTORY/PAST SURGICAL HISTORY:: All Active Problems. Right rotator cuff tear (Acute ~04/2022). 05/04/22 Hem/Oncology. Seizures (Acute ~03/2022). 04/25/22 Hem/Onc Note, Dr Nolan. 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 03/21/22 [facility] Neurosurgery. 03/30/22 Neuro/Onc treatments discussed, F/U pending treatment decision. [facility] Onc. Cerebral edema (Acute). Weakness on right side of face (Acute). Chronic kidney disease (CKD) stage G3a/A1, moderately decreased glomerular filtration rate (GFR) between 45-59 mL/min/1.73 square meter and albuminuria creatinine ratio less than 30 mg/g (Acute 02/17/15). Type 2 diabetes mellitus (Acute 02/17/15). Complete tear of right rotator cuff (Chronic 01/17/18). Hypertension (Chronic). NSTEMI (non-ST elevated myocardial infarction) (Acute 06/18/18). Hyperlipidemia (Acute). Restless legs syndrome (Acute 02/08/13). Sleep Study 12/2012: abundant periodic limb movements causing signficant sleep fragmentation; no sleep apnea;. Hyperuricemia without signs of inflammatory arthritis and tophaceous disease (Acute). Psoriasis (Chronic). Former Cigarette Smoker (Chronic ~2018). quit in 2019 following [place]. Osteoarthritis of hands, bilateral (Acute). Other recurrent depressive disorders (Acute 02/01/15). Vitamin D deficiency (Acute 02/17/15). Myalgia (Acute 03/27/17). Morbid obesity (Acute 02/17/15). Marijuana use (Acute 09/08/15). Rice Krispie bars w/marijuana. Low back pain (Acute 02/01/15). Fatigue (Acute 02/17/15). Environmental allergies (Acute 02/17/15). Edema (Acute 02/17/15). Medical History. Carpal tunnel syndrome, left (01/17/18). Cataracts, bilateral. Mild visually significant cataracts 01/06/21. Disorder of tongue (02/01/15). Generalized weakness. Hip pain (02/01/15). Insomnia (02/17/15). Left medial knee pain (01/2019). Fell in the beginning of January, w/o clear twisting/injury of knee, but knee started hurting 2 weeks later. Started aching @ night .. then pain increased, jose with walking. Improved today post CBD oil and recent rest. But tender. Recovery may be delayed 2' walking, standing @ yard sale... T2DM (type 2 diabetes mellitus). Tobacco abuse. quit 2017, occasionally since then. Surgical History. Endoscopic Carpal Tunnel release (03/13/18). Left. History of umbilical hernia repair (~2001). Tonsillectomy and adenoidectomy (02/17/1954) PREVIOUS FUNCTIONAL STATUS/SOCIAL/FAMILY SUPPORTS:: Sindy lives in [facility] with her sister, Ines. She has two daughters, who are supportive (shared DPOAs). Recently, due to medical concerns, her daughter Yary has been staying with her, renting space at [facility]. Yary reports that Sindy has been declining since , which was the first time family noticed a change in her. Yary plans to stay with and care for Sindy while she is receiving treatment for a glioblastoma, which was recently diagnosed. CURRENT FUNCTIONAL STATUS:: Sindy was sitting up in her chair when CM met with her. She was smiling and pleasant, but did not engage well in conversation. Her daughters, Yary and Kathy were in the room visiting. They reported that today was supposed to be Sindy's last day of radiation/chemo treatment, and they do not plan to reschedule it. They are hoping that Sindy can get stronger in order for them to take her to visit family in [place], and then they plan to bring her to [place] to live with them. Currently, Sindy needs the assistance of the steady lift, which is not her baseline. She was previously able to transfer with one assist, which her daughters will need her to be again, in order to get her home with them. PT is recommending SNF for short term rehab in order to meet her goals for travel. CM sent referrals to [facility] and the [facility], as requested by her daughters. CM will continue to follow. ADVANCE DIRECTIVES:: DPOA on file, Yary and Kathy, (her daughters) are shared DPOAs. Has patient been provided with info about the portal/API?: Yes Did the patient sign up for the portal?: Yes (active) CODE STATUS:: Full Code INSURANCE COVERAGE / FINANCIAL ISSUES:: MCR/ for life CURRENT HOME/COMMUNITY SERVICES/EQUIPMENT:: Sindy has services currently, and her daughter is temporarily staying with her to provide care 21/05. PRIMARY CARE PHYSICIAN:: Rosalie Joya POTENTIAL DISCHARGE NEEDS:: SNF placement for short term rehab PATIENT/FAMILY EDUCATION NEEDS:: Review discharge instructions and limitations, discussion of self care needs including ask me three. ANTICIPATED BARRIERS TO DISCHARGE:: Sindy's mobility is significantly limited, SNF referrals pending. TRANSPORTATION:: Via w/c van vs EMS PLAN:: Sindy will likely go to SNF for short term rehab prior to traveling with her daughters. She will transport via w/c van vs EMS, depending on her mobility at the time of discharge. She will follow up with her PCP and discharge plan of care. CM will continue to follow.
[2022-05-10] MEDS: Enoxaparin 40 MG/0.4 ML SYR SC (18:09)
[2022-05-10] MEDS: Pramipexole 0.5 MG TAB 0.75 MG PO (20:40)
[2022-05-10 23:05] VITALS: BP 147/83; PULSE 83; RESP 16; TEMP 36; O2SAT 97
[2022-05-11 07:45] VITALS: BP 150/88; PULSE 77; RESP 20; TEMP 36.6; O2SAT 98
[2022-05-11] MEDS: levETIRAcetam 500 MG TAB 1000 MG PO ×3 (08:08→21:24)
[2022-05-11] MEDS: Allopurinol 300 MG TAB PO (08:08)
[2022-05-11] MEDS: Pantoprazole 20 MG TABCR 40 MG PO (08:08)
[2022-05-11] MEDS: Lacosamide 100 MG TAB PO ×2 (08:09→21:26)
[2022-05-11] MEDS: Dexamethasone 4 MG TAB 6 MG PO ×2 (08:09→21:25)
[2022-05-11] MEDS: clonazePAM 0.5 MG TAB PO ×2 (08:09→21:26)
[2022-05-11] MEDS: buPROPion-XL 150 MG TABCR 300 MG PO (08:09)
[2022-05-11] MEDS: Insulin Aspart 300 UNITS/3 ML PEN SC ×3 (08:14→18:06)
[2022-05-11] MEDS: Magnesium Oxide 400 MG TAB PO ×2 (08:49→21:26)
--- NOTE | 2022-05-11 09:31 | PT.INTREAT ---
Date of service: 05/11/22 Time of Service: 09:10 PT Notes Visit Reasons: UTI, High Grade Glioma Inpatient Physical Therapy Treatment Note [facility] Date: 05/11/2022 PRECAUTIONS: Fall, activity as tolerated SUBJECTIVE: Sindy indicates that she is agreeable to participating in PT, to get up from the chair and transfer to her bed to rest. OBJECTIVE: PAIN: No c/o pain BED MOBILITY/TRANSFERS Sit-supine: Max A x2 Sit-stand: Mod A x2 with STEDY Stand-sit: Min A x2 with STEDY Chair-bed: STEDY GAIT: Unable THEREX: Unable to participate due to significant fatigue ASSESSMENT: Patient demonstrates limited ability to participate in PT interventions this morning due to significant fatigue and weakness. She is unable to ambulate and requires STEDY for transfers at this time. PLAN: Global strengthening, as tolerated for improved mobility and activity tolerance. TREATMENT CODE/TIME: 10 minutes; 58294 (09:10)
--- NOTE | 2022-05-11 12:28 | PCNE_ITS ---
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 She has been seen by Valarie Vines NP palliative recently. Palliative was consulted to discuss goals of care and assist with advanced care planning. Her family reports that she has had significant decline over the last week. She is having more difficulty with transfers. She just completed 3 weeks of chemo and radiation. She missed the last 2 radiation appointments. Her daughter, Yary has been her primary caregiver at home. Yary and her other daughter, Kathy live in [facility] and hope to take Sindy back with them in the near future. At this point she is dependent on staff for all care. She has to be fed, she is incontinent of urine, she has not moved her bowels. She appears to have lost weight. The plan is for her to discharge to [facility] and rehab to work with PT to get stronger. Her family is hoping to get her to [place] within the next week. Her sons are coming to help transport her. Then they would like to get her back to [place] near her children. I emphasized that if they plan to move her, they need to do this with urgency and that it will likely be a difficult trip. The plan is for Sindy to resume chemo (no more radiation) in one month. They are also considering using an optune device. They have discussed prognosis with oncology, they estimated her life expectancy to be a few months without Tx and up to 12 months with Tx. We discussed CODE status and reviewed Sindy's advanced directives. Her daughters Kathy and Yary are her health care agents. Her advanced directives were completed in 2008 and indicate that she would not want aggressive care. Her code status was changed to DNR/DNI, her health care agents signed for her. We discussed hospice as an option. Yary and Kathy had several questions and appreciated the information. Discussed that hospice could potentially help set her up with a hospice in [place] and a hospice in [place] for their trip. Also discussed the support that hospice could offer if they decided to keep her home when they get her back to [place]. Assessment and Plan Assessment and plan (1) 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: Status: Acute (2) Seizures: Status: Acute (3) Acute UTI: Status: Acute (4) Cerebral edema: Status: Acute (5) Weakness on right side of face: Status: Acute (6) Chronic kidney disease (CKD) stage G3a/A1, moderately decreased glomerular filtration rate (GFR) between 45-59 mL/min/1.73 square meter and albuminuria creatinine ratio less than 30 mg/g: Status: Acute (7) Type 2 diabetes mellitus: Status: Acute Qualifiers: Diabetes mellitus terminal computer operator insulin use: without terminal computer operator use Diabetes mellitus complication status: without complication Qualified Code(s): E11.9 - Type 2 diabetes mellitus without complications (8) Hyperlipidemia: Status: Acute Qualifiers: Hyperlipidemia type: mixed hyperlipidemia Qualified Code(s): E78.2 - Mixed hyperlipidemia (9) Generalized weakness: (10) DNR (do not resuscitate): Status: Acute (11) DNI (do not intubate): Status: Acute (12) POLST (Physician Orders for Life-Sustaining Treatment): Status: Acute (13) Palliative care patient: Status: Acute Assessment and plan: Sindy is a 77 yo female with high grade glioma, 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 She has been seen by Valarie Vines NP palliative recently. Palliative was consulted to discuss goals of care and assist with advanced care planning. Her goal is to try to go to [place] again, she used to go every summer. Her daughters are trying to reach her goal and get her to [place]. They understand this is likely going to be difficult. Sindy's sons are coming from [place] to help with the trip. They would also like to get her back to [place], where her kids live, to care for her there. She is getting weaker, having difficulty with transfers, losing weight, dependen t on staff for all care including feeding and incontinent care. She may have some improvement with the treatment of UTI. Discussed Hospice as an option. The plan with oncology is for her to resume chemo in one month. They are also considering using an Optune device. Discussed the options of continuing treatment vs stopping and focusing on comfort if she is not tolerating it well. Discussed CODE status and reviewed AD with her DPOAs. She is a DNR/DNI, COLST completed. Palliative will follow up next week. She is scheduled to see Valarie Vines NP next week. Her family is advised to contact Palliative as needed. Review of Systems Narrative: unable PFSH All Active Problems (Updated 05/11/22 @ 14:54 by Wanda Ibarra NP) Palliative care patient (Acute) POLST (Physician Orders for Life-Sustaining Treatment) (Acute) DNI (do not intubate) (Acute) DNR (do not resuscitate) (Acute) Discharge planning issues (Acute) Acute UTI (Acute) Hypoglycemia (Acute) Right rotator cuff tear (Acute ~04/2022) 05/04/22 Hem/Oncology Seizures (Acute ~03/2022) 04/25/22 Hem/Onc Note, Dr Nolan 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 (Acute ~02/2022) 03/21/22 [facility] [place] Neurosurgery 03/30/22 Neuro/Onc treatments discussed, F/U pending treatment decision [facility] Onc Cerebral edema (Acute) Weakness on right side of face (Acute) Chronic kidney disease (CKD) stage G3a/A1, moderately decreased glomerular filtration rate (GFR) between 45-59 mL/min/1.73 square meter and albuminuria creatinine ratio less than 30 mg/g (Acute 02/17/15) Type 2 diabetes mellitus (Acute 02/17/15) Complete tear of right rotator cuff (Chronic 01/17/18) Hypertension (Chronic) NSTEMI (non-ST elevated myocardial infarction) (Acute 06/18/18) Hyperlipidemia (Acute) Restless legs syndrome (Acute 02/08/13) Sleep Study 12/2012: abundant periodic limb movements causing signficant sleep fragmentation; no sleep apnea; Hyperuricemia without signs of inflammatory arthritis and tophaceous disease (Acute) Psoriasis (Chronic) Former Cigarette Smoker (Chronic ~2018) quit in 2019 following [place] Osteoarthritis of hands, bilateral (Acute) Other recurrent depressive disorders (Acute 02/01/15) Vitamin D deficiency (Acute 02/17/15) Myalgia (Acute 03/27/17) Morbid obesity (Acute 02/17/15) Marijuana use (Acute 09/08/15) Rice Krispie bars w/marijuana Low back pain (Acute 02/01/15) Fatigue (Acute 02/17/15) Environmental allergies (Acute 02/17/15) Edema (Acute 02/17/15) Medical History Carpal tunnel syndrome, left (01/17/18) Cataracts, bilateral Mild visually significant cataracts 01/06/21 Disorder of tongue (02/01/15) Generalized weakness Hip pain (02/01/15) Insomnia (02/17/15) Left medial knee pain (01/2019) Fell in the beginning of January, w/o clear twisting/injury of knee, but knee started hurting 2 weeks later. Started aching @ night .. then pain increased, jose with walking. Improved today post CBD oil and recent rest. But tender. Recovery may be delayed 2' walking, standing @ yard sale... T2DM (type 2 diabetes mellitus) Tobacco abuse quit 2017, occasionally since then Surgical History Endoscopic Carpal Tunnel release (03/13/18) Left History of umbilical hernia repair (~2001) Tonsillectomy and adenoidectomy (02/17/1954) Family History Mother Osteoporosis Arthritis Heart disease Stroke Father Diabetes Arthritis Heart disease Emphysema lung Stroke Sister Diabetes Arthritis Heart disease Mental disorder Social History Smoking/Tobacco Use Status: Former Tobacco Use Quit Date: 05/31/18 Tobacco: How many years used: 45 Smoking risk assessment performed?: Yes Alcohol Intake: current Alcohol Intake frequency: a few times a month Drug use: Occasionally Substance use type: does not use Household members: none Housing: apartment Number of Children: 4 Communication Needs: Corrective Lenses What is your relationship status?: Panel score (0-1 are the most socially isolated patients): 0 What type of physical activity do you participate in: none Seatbelt use: always Drive intox or ride w/intox delivery motorcycle driver: No Working smoke detector in home: Yes Fire extinguisher in home: Yes Carbon monox detector in home: Yes Do you feel safe at home: Yes Do you feel safe in your relationship?: Yes Exam Narrative Exam Narrative: General: well-nourished, elderly female, sitting up in the recliner, she was falling asleep during the visit. She was unable to engage in conversation. HEENT: atraumatic, EOMI, MM moist. Neck: supple. Respiratory: respirations appear even and unlabored. Results Last Vital Signs Temp 36.6 C 05/11/22 07:45 Pulse 77 05/11/22 07:45 Resp 20 05/11/22 07:45 BP 150/88 H 05/11/22 07:45 Pulse Ox 98 05/11/22 07:45 Labs Result diagrams: 05/09/22 13:10 05/09/22 13:10
--- NOTE | 2022-05-11 13:03 | DSE_ITS ---
Date of service: 05/12/22 Time of Service: 10:00 DS: Diagnosis Discharge Diagnosis (1) 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: Status: Acute (2) Chronic kidney disease (CKD) stage G3a/A1, moderately decreased glomerular filtration rate (GFR) between 45-59 mL/min/1.73 square meter and albuminuria creatinine ratio less than 30 mg/g: Status: Acute (3) Type 2 diabetes mellitus: Status: Acute (4) Hypertension: Status: Chronic (5) NSTEMI (non-ST elevated myocardial infarction): Status: Acute (6) Hyperlipidemia: Status: Acute (7) Discharge planning issues: Status: Acute Discharge Plan Disposition Patient Disposition: [facility] SW[facility] BED LEVEL 1 Condition: Deteriorating Discharge Details Reason For Visit: UTI, High Grade Glioma Admit Date/Time: 05/11/22 15:54 Admit Provider: Aba Talley Attending Provider: Aba Talley Primary Care Provider: Rosalie Joya Home Meds and New Rx's Prescriptions: New polyethylene glycol 3350 17 gram Powder In Packet 17 g PO DAILY PRN PRN (Reason: Constipation) Qty: 0 0RF magnesium oxide 400 mg (241.3 mg magnesium) Tablet 400 mg PO BID Qty: 0 0RF nystatin 100,000 unit/gram Powder 15 g topical TID Qty: 0 0RF Continued gabapentin 300 mg capsule 300 mg PO BID PRN (Reason: muscle spasm) Qty: 180 3RF Hold Instructions: Home Medication placed on hold at Doctor's office melatonin 3 mg tablet 3 mg PO HS PRN triamcinolone acetonide 0.5 % ointment 1 applic topical BID PRN (Reason: psoriasis) Qty: 15 0RF Rx Instructions: apply thin film to psoriasis that is not on the face BID prn nitroglycerin [Nitrostat] 0.4 mg tablet, sublingual 0.4 mg Sublingual PRN PRN (Reason: chest pain) Qty: 30 0RF (DME) FreeStyle Nusrat 2 Sensor Kit See Rx Instructions .Route Qty: 1 5RF Rx Instructions: As directed (DME) FreeStyle Nusrat 2 [place] Misc See Rx Instructions .Route Qty: 1 0RF Rx Instructions: As directed (DME) eduClipperTouch Ultra Test 1 EACH strip 1 ea Miscellaneous allopurinol 300 mg tablet 300 mg PO DAILY Qty: 90 3RF Trulicity 1.5 mg/0.5 mL pen injector 1.5 mg SC QWEEK Qty: 12 4RF Rx Instructions: Sundays bupropion HCl 300 mg tablet extended release 24 hr 300 mg PO QAM Qty: 90 2RF (DME) pen needle, diabetic [Lite Touch Insulin Pen [place]] 31 gauge x 1/4 needle 0 .Route Qty: 100 0RF Rx Instructions: Use 6 per day; Dx: E11.9, to keep HbA1c less than 6.5% temozolomide 20 mg capsule 20 mg PO DAILY Rx Instructions: take with temodar 140mg qd x 21 days temozolomide [Temodar] 140 mg capsule 140 mg PO DAILY Label Comments: 04/11/22 note Rx Instructions: (must be taken on empty stomach), take with temodar 20mg capsule daily x 21 days lacosamide [Vimpat] 100 mg tablet 100 mg PO BID Label Comments: from 05/04/22 note Rx Instructions: x 3days dexamethasone 4 mg tablet 6 mg PO BID Label Comments: 05/02/22 Hem/Onc noted sulfamethoxazole-trimethoprim 800-160 mg tablet 1 tab PO DIRECTED Rx Instructions: Saturdays, Mondays, Wednesdays pramipexole 0.5 mg Tablet 0.75 mg PO QHS pantoprazole 20 mg tablet,delayed release (DR/EC) 40 mg PO DAILY insulin glargine [Lantus Solostar U-100 Insulin] 100 unit/mL (3 mL) insulin pen 10 unit subcut HS Qty: 15 0RF Humulin N NPH Insulin KwikPen 100 unit/mL (3 mL) insulin pen 25 unit subcut BID Qty: 15 0RF insulin aspart U-100 [Novolog Flexpen U-100 Insulin] 100 unit/mL (3 mL) insulin pen 1 sliding scale dose subcut USEASDIRECTD Qty: 15 0RF Rx Instructions: give per [facility] insulin resistant sliding scale glucose 5 % solution 10 g PO ONCE PRNQty: 354 0RF Rx Instructions: may repeat once after 15 minutes if no response loratadine 10 mg tablet 10 mg PO DAILY PRN PRNQty: 90 3RF Glucagon (HCl) Emergency Kit 1 mg recon soln 1 mg subcut Q20M PRNQty: 1 0RF Rx Instructions: until target blood sugar attained Trulicity 1.5 mg/0.5 mL pen injector 1.5 mg SUBCUT QWEEK Rx Instructions: On sundays levetiracetam 1,000 mg tablet 1 tab PO TID Label Comments: TAKE 1 TABLET BY MOUTH TWICE DAILY clonazepam 0.5 mg tablet 0.5 mg PO BID Qty: 10 0RF Discharge Instructions Stand Alone Forms: Nursing Discharge Form Activity:: Activity as Tolerated Equipment/Supplies:: No Equipment Needed Diet:: As Tolerated DS: Data Vitals/I&O Vitals and I&O: Vital Signs Temperature 36.6 C 05/11/22 07:45 Temperature Source Tympanic 05/11/22 07:45 Pulse 77 05/11/22 07:45 Pulse Rhythm Regular 05/11/22 11:43 Pulse 87 05/09/22 14:30 Respiratory Rate 20 05/11/22 07:45 Respiratory Effort Non-Labored 05/11/22 11:43 Respiratory Depth Shallow 05/11/22 11:43 Respiratory Pattern Normal 05/11/22 11:43 Blood Pressure 150/88 H 05/11/22 07:45 Blood Pressure Mean 100 05/09/22 14:16 Blood Pressure Position Sitting 05/09/22 10:44 Pulse Oximetry 98 05/11/22 07:45 Oxygen Delivery Method Room Air 05/11/22 07:45 Oxygen Flow Rate 0 05/11/22 07:45 Pain Level 0 05/11/22 07:45 Intake & Output 05/10/22 05/11/22 05/11/22 23:59 11:59 23:59 Intake Total 1835.333 / 3466.000 280 / 280 Output Total 301 / 551 653 / 653 Balance 1534.333 / 2915.000 -373 / -373 Intake: IV 985.333 / 1976.000 Oral 850 / 1490 280 / 280 Output: Urine 301 / 551 653 / 653 Other: Urine Color Yellow Yellow Urine Appearance Clear Clear Urine Odor None None Comment pT tired using [employer] 2 times and did nothing. pT was transfered onto [facility], she did not void or have BM. Voiding Methods Bedpan Bedside Commode Bedside Commode Data Completed and Pending Labs on day of discharge: Preliminary micro results at discharge 05/09/22 16:12 Urine Culture - Preliminary Urine - Reflex from Ua Enterococcus Species Gram Positive Ladan,Mixed 05/09/22 17:12 Blood Culture - Preliminary Blood NO GROWTH 24 HOURS 05/09/22 17:12 Blood Culture - Preliminary Blood NO GROWTH 24 HOURS PFSH All Active Problems Palliative care patient (Acute) POLST (Physician Orders for Life-Sustaining Treatment) (Acute) DNI (do not intubate) (Acute) DNR (do not resuscitate) (Acute) Discharge planning issues (Acute) Acute UTI (Acute) Hypoglycemia (Acute) Right rotator cuff tear (Acute ~04/2022) 05/04/22 Hem/Oncology Seizures (Acute ~03/2022) 04/25/22 Hem/Onc Note, Dr Nolan 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 (Acute ~02/2022) 03/21/22 [facility] 03/[place]/22 Neuro/Onc treatments discussed, F/U pending treatment decision [facility] Onc Cerebral edema (Acute) Weakness on right side of face (Acute) Chronic kidney disease (CKD) stage G3a/A1, moderately decreased glomerular fi ltration rate (GFR) between 45-59 mL/min/1.73 square meter and albuminuria creatinine ratio less than 30 mg/g (Acute 02/17/15) Type 2 diabetes mellitus (Acute 02/17/15) Complete tear of right rotator cuff (Chronic 01/17/18) Hypertension (Chronic) NSTEMI (non-ST elevated myocardial infarction) (Acute 06/18/18) Hyperlipidemia (Acute) Restless legs syndrome (Acute 02/08/13) Sleep Study 12/2012: abundant periodic limb movements causing signficant sleep fragmentation; no sleep apnea; Hyperuricemia without signs of inflammatory arthritis and tophaceous disease (Acute) Psoriasis (Chronic) Former Cigarette Smoker (Chronic ~2018) quit in 2019 following [place] Osteoarthritis of hands, bilateral (Acute) Other recurrent depressive disorders (Acute 02/01/15) Vitamin D deficiency (Acute 02/17/15) Myalgia (Acute 03/27/17) Morbid obesity (Acute 02/17/15) Marijuana use (Acute 09/08/15) Rice Krispie bars w/marijuana Low back pain (Acute 02/01/15) Fatigue (Acute 02/17/15) Environmental allergies (Acute 02/17/15) Edema (Acute 02/17/15) Medical History Carpal tunnel syndrome, left (01/17/18) Cataracts, bilateral Mild visually significant cataracts 01/06/21 Disorder of tongue (02/01/15) Generalized weakness Hip pain (02/01/15) Insomnia (02/17/15) Left medial knee pain (01/2019) Fell in the beginning of January, w/o clear twisting/injury of knee, but knee started hurting 2 weeks later. Started aching @ night .. then pain increased, jose with walking. Improved today post CBD oil and recent rest. But tender. Recovery may be delayed 2' walking, standing @ yard sale... T2DM (type 2 diabetes mellitus) Tobacco abuse quit 2017, occasionally since then Surgical History Endoscopic Carpal Tunnel release (03/13/18) Left History of umbilical hernia repair (~2001) Tonsillectomy and adenoidectomy (02/17/1954) Family History Mother Osteoporosis Arthritis Heart disease Stroke Father Diabetes Arthritis Heart disease Emphysema lung Stroke Sister Diabetes Arthritis Heart disease Mental disorder Social History Smoking/Tobacco Use Status: Former Tobacco Use Quit Date: 05/31/18 Tobacco: How many years used: 45 Smoking risk assessment performed?: Yes Alcohol Intake: current Alcohol Intake frequency: a few times a month Drug use: Occasionally Substance use type: does not use Household members: none Housing: apartment Number of Children: 4 Communication Needs: Corrective Lenses What is your relationship status?: Panel score (0-1 are the most socially isolated patients): 0 What type of physical activity do you participate in: none Seatbelt use: always Drive intox or ride w/intox city route driver: No Working smoke detector in home: Yes Fire extinguisher in home: Yes Carbon monox detector in home: Yes Do you feel safe at home: Yes Do you feel safe in your relationship?: Yes
[2022-05-11] MEDS: Nystatin POWDER 15 GM JAR TP ×2 (14:45→21:27)
--- NOTE | 2022-05-11 15:05 | W.PM.PROGNOT ---
Date of Service Date of service: 05/11/22 Time of Service: 15:05 Assessment and Plan Assessment and plan (1) 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: Status: Acute Assessment and plan: She would like to discontinue chemo and radiation treatment. Seem by palliative today, Increasing weakness/fatigue. What are goals of care, treatment preference Seizures d/t glioma - none today Cont antiseizure meds (2) Chronic kidney disease (CKD) stage G3a/A1, moderately decreased glomerular filtration rate (GFR) between 45-59 mL/min/1.73 square meter and albuminuria creatinine ratio less than 30 mg/g: Status: Acute Assessment and plan: GFR > 60. (3) Type 2 diabetes mellitus: Status: Acute Assessment and plan: Random glucose on admission was 67. Hold Lantus and NPH and monitor; restart when oral intake improves and glucose readings warrant. On Trulicity once/wk; will need to find out what day she takes this. Qualifiers: Diabetes mellitus complication status: without complication Diabetes mellitus ferry terminal agent insulin use: without ferry terminal agent use Qualified Code(s): E11.9 - Type 2 diabetes mellitus without complications (4) Hypertension: Status: Chronic Assessment and plan: SBP in the 130's-160's since admission. Not on antihypertensives. Monitor. Qualifiers: Hypertension type: essential hypertension Qualified Code(s): I10 - Essential (primary) hypertension (5) NSTEMI (non-ST elevated myocardial infarction): Status: Acute Assessment and plan: Past history. No current c/o CP. (6) Hyperlipidemia: Status: Acute Assessment and plan: Currently not on a lipid lowering agent. Qualifiers: Hyperlipidemia type: mixed hyperlipidemia Qualified Code(s): E78.2 - Mixed hyperlipidemia (7) Discharge planning issues: Status: Acute Assessment and plan: Daughters spoke with care management. Their hope is she will be able to improve enough to be able to transfer at a minimum. Planning SNF for rehab. She had a qualifying stay here in March. The plan is to have her travel to [place] for a visit then fly to [facility] with them to live permanently. They are fully aware these plans may end up not being realistic ultimately if she fails at rehab. She is unable to go to rehab today s/t rehab's eMR is down. Subjective Subjective Patient reports: no new complaints Interval history since last seen: Code status has been changed to DNI DNR Exam Narrative Exam Narrative: Appears fatigued, confused; looking about the room, Const General: cooperative and no acute distress Nutritional Appearance: obese Orientation: awake, oriented to person and oriented to place Eyes General: appearance normal, both eyes and all related structures Sclera: sclerae normal Chest Chest: normal inspection of the chest Resp Effort & Inspection: normal respiratory effort Auscultation: clear to auscultation bilaterally Cardio Jugular venous pressure: no JVD Rate: regular rate Rhythm: regular rhythm Heart Sounds: S1 normal and S2 normal GI Inspection: obesity Palpation: soft and nontender Back/Spine/Pelvis Back: no CVA tenderness Skin General skin exam: no rashes or lesions noted Extrem General: no pedal edema and no calf tenderness Psych Appearance: grossly normal Speech and Movement: delayed speech Affect: blunted Objective Last Vital Signs Temp 36.6 C 05/11/22 07:45 Pulse 77 05/11/22 07:45 Resp 20 05/11/22 07:45 BP 150/88 H 05/11/22 07:45 Pulse Ox 98 05/11/22 07:45 Reviewed Pertinent PMH: Yes
[2022-05-11 15:28] VITALS: BP 151/83; PULSE 93; RESP 12; TEMP 37; O2SAT 95
--- NOTE | 2022-05-11 17:07 | CHAPLAIN ---
Sindy was up in the chair when I visited. Two of her daughters, both from [facility], were with her. One daughter has been living with Sindy at [facility] in [place], [place]. They were renting space from him. Sindy was not there as a patient. Sindy spoke a few words and softly so that I didn't understand everything she said. She seemed to appreciate the prayer shawl I gave her. I will continue to visit.
--- NOTE | 2022-05-11 17:34 | PDOC.CMPRO ---
- If Service Date Differs Date of service: 05/11/22 Time of Service: 17:34 Care Management Progress Note S/O: Sindy was sitting up in her chair today. She was smiling and pleasant, although limited in verbal interaction. Her daughters, Yary and Kathy were in the room visiting. CM reached out to admissions at [facility] today, who stated that they can offer her a bed, but they were not available to admit her today. She will likely go to short term rehab tomorrow, if a bed is available. Kathy will be present for discharge, and will go with her mother to the facility to assist with paperwork. CM will continue to follow. A: Sindy is a 77 year old female admitted to [facility] on 05/09/22 with UTI, high grade Glioma. P: Sindy will likely go to SNF for short term rehab prior to traveling with her daughters. She will transport via w/c van vs EMS, depending on her mobility at the time of discharge. She will follow up with her PCP and discharge plan of care. CM will continue to follow.
[2022-05-11] MEDS: Enoxaparin 40 MG/0.4 ML SYR SC (18:07)
[2022-05-11] MEDS: Pramipexole 0.5 MG TAB 0.75 MG PO (21:29)
[2022-05-11 23:09] VITALS: BP 148/84; PULSE 85; RESP 18; TEMP 36.5; O2SAT 96
[2022-05-12 08:11] VITALS: BP 146/85; PULSE 88; RESP 18; TEMP 35.9; O2SAT 97
[2022-05-12 08:11] LABS: Platelet Count 126 10^3/uL (130-400)
[2022-05-12] MEDS: Insulin Aspart 300 UNITS/3 ML PEN SC ×2 (09:13→11:55)
[2022-05-12 09:30] VITALS: BP 136/77; PULSE 83; RESP 18; TEMP 35.8; O2SAT 97
[2022-05-12] MEDS: buPROPion-XL 150 MG TABCR 300 MG PO (09:44)
[2022-05-12] MEDS: Nystatin POWDER 15 GM JAR TP ×3 (09:44→22:54)
[2022-05-12] MEDS: levETIRAcetam 500 MG TAB 1000 MG PO ×3 (09:45→21:04)
[2022-05-12] MEDS: Pantoprazole 20 MG TABCR 40 MG PO (09:45)
[2022-05-12] MEDS: clonazePAM 0.5 MG TAB PO ×2 (09:45→21:05)
[2022-05-12] MEDS: Dexamethasone 4 MG TAB 6 MG PO ×2 (09:45→21:04)
[2022-05-12] MEDS: Allopurinol 300 MG TAB PO (09:46)
[2022-05-12] MEDS: Magnesium Oxide 400 MG TAB PO ×2 (09:46→21:06)
[2022-05-12] MEDS: Lacosamide 100 MG TAB PO ×2 (09:46→21:05)
--- NOTE | 2022-05-12 11:29 | PT.INTREAT ---
PT Notes Visit Reasons: UTI, High Grade Glioma Inpatient Physical Therapy Treatment Note [facility] Date: 05/12/22 SUBJECTIVE: Seated in recliner, awake and watching tv. OBJECTIVE: [] BED MOBILITY/TRANSFERS THEREX: performed a global LE strength and stabilization routine while seated in recliner. This included AP x15, SLR x10, hip abd x 10, heel slides x 10, LAQ x10. Assistance required with ex on right LE occasionally, especially with SLR. ASSESSMENT: tolerated session well. No c/o pain, but did appear fatigued as she kept closing her eyes. She was able to follow directions, non verbal. PLAN: continue to work on increasing her strength and functional mobility to tolerance following PT POC. TREATMENT CODE/TIME: 15 min [id number]
[2022-05-12] MEDS: Fosfomycin Tromethamine 3 GM PACKET PO (11:55)
[2022-05-12 14:16] VITALS: BP 135/71; PULSE 96; RESP 20; TEMP 36; O2SAT 94
--- NOTE | 2022-05-12 16:32 | CMPROGNOTE_ITS ---
- If Service Date Differs Date of service: 05/12/22 Time of Service: 16:32 Care Management Progress Note S/O: Sindy was sleeping when CM attempted to meet with her. CM called her daughters and informed them that she has a bed offer at [facility], but they are not able to accept her until Sunday, so she will remain at [facility] over the weekend. They are comfortable with this plan. CM will continue to follow. A: Sindy is a 77 year old female admitted to [facility] on 05/09/22 with UTI, high grade Glioma. P: Sindy will likely go to SNF for short term rehab prior to traveling with her daughters. She will transport via w/c van vs EMS, depending on her mobility at the time of discharge. She will follow up with her PCP and discharge plan of care. CM will continue to follow.
[2022-05-12] MEDS: Enoxaparin 40 MG/0.4 ML SYR SC (17:08)
--- NOTE | 2022-05-12 17:26 | CHAPLAIN ---
Sindy's daughters Yary and Kathy asked if would have a conversation with Sindy about her options - staying at a facility here to have more treatment (which may or may not improve things) for her tumor, or traveling to [facility] to live with Yary, likely on hospice care. Sindy lived in [facility] for more than 20 years. Many of her kids and grandkids are there. She lived there for about 20 and visited annually. Sindy is originally from [place]. Yary took her back there about two weeks ago. Sindy is having difficulty speaking, but says some words, not consistently, but makes her wishes known by nodding her head or shaking her head. When I spoke with her she seemed clear about the two options that have been discussed, and indicated that she knew what they were. I couldn't tell if she knew what continuing treatment at a SNF entailed. She indicated that she knew hospice would be involved in her care if she went to [place]. From there it was difficult to tell what her preference was. Yary and Kathy were hoping that would be more clear, and may be Sindy would respond more to someone outside of the family. Sindy also has a sister, Fallon, who lives in [facility]. They agreed that Marco would be a good person for Sindy to speak with and planned to call Fallon and ask her to visit.
--- NOTE | 2022-05-12 17:44 | W.PM.PROGNOT ---
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 Has been evaluated by Palliative Care. Increasing weakness/fatigue. What are goals of care, treatment preference Seizures d/t glioma - none today Cont antiseizure meds (2) Chronic kidney disease (CKD) stage G3a/A1, moderately decreased glomerular filtration rate (GFR) between 45-59 mL/min/1.73 square meter and albuminuria creatinine ratio less than 30 mg/g: Status: Acute Assessment and plan: GFR > 60. (3) Type 2 diabetes mellitus: Status: Acute Assessment and plan: Glucose in the 200's resumed Lantus tonight at usual at home dose On Trulicity once/wk;. Qualifiers: Diabetes mellitus complication status: without complication Diabetes mellitus technician terminal and repeater insulin use: without technician terminal and repeater use Qualified Code(s): E11.9 - Type 2 diabetes mellitus without complications (4) Hypertension: Status: Chronic Assessment and plan: SBP in the 130's-160's since admission. Not on antihypertensives. Monitor. Qualifiers: Hypertension type: essential hypertension Qualified Code(s): I10 - Essential (primary) hypertension (5) NSTEMI (non-ST elevated myocardial infarction): Status: Acute Assessment and plan: No current c/o CP. No difficulty breathing. (6) Hyperlipidemia: Status: Acute Assessment and plan: Currently not on a lipid lowering agent. Qualifiers: Hyperlipidemia type: mixed hyperlipidemia Qualified Code(s): E78.2 - Mixed hyperlipidemia (7) DVT prophylaxis: Status: Acute Assessment and plan: Enoxaparin Discussed with Dr De Santiago Subjective Subjective Patient reports: no new complaints Interval history since last seen: Has been resting today, eating and drinking; plan for [facility] Sunday, she denies pain. Exam Narrative Exam Narrative: Appears fatigued, is somewhat confused, did sleep alot today. Vital signs reviewed. Const General: cooperative and no acute distress Nutritional Appearance: obese Orientation: awake, oriented to person and oriented to place Eyes General: appearance normal, both eyes and all related structures Sclera: sclerae normal Chest Chest: normal inspection of the chest Resp Effort & Inspection: normal respiratory effort Auscultation: clear to auscultation bilaterally Cardio Jugular venous pressure: no JVD Rate: regular rate Rhythm: regular rhythm Heart Sounds: S1 normal and S2 normal GI Inspection: obesity Palpation: soft and nontender Back/Spine/Pelvis Back: no CVA tenderness Skin General skin exam: no rashes or lesions noted Extrem General: no pedal edema and no calf tenderness Psych Appearance: grossly normal Speech and Movement: delayed speech Affect: blunted Objective Last Vital Signs Temp 36 C L 05/12/22 14:16 Pulse 96 H 05/12/22 14:16 Resp 20 05/12/22 14:16 BP 135/71 05/12/22 14:16 Pulse Ox 94 05/12/22 14:16 Laboratory Results - last 24 hr 05/12/22 08:05 Plt Count 126 L Reviewed Pertinent PMH: Yes
[2022-05-12] MEDS: Pramipexole 0.5 MG TAB 0.75 MG PO (21:05)
[2022-05-12] MEDS: Gabapentin 300 MG CAP PO (21:06)
[2022-05-12] MEDS: Insulin Glargine 300 UNITS/3 ML PEN 10 UNITS SC (22:53)
[2022-05-12 23:35] VITALS: BP 147/80; PULSE 82; RESP 20; TEMP 36.4; O2SAT 97
[2022-05-13 06:25] LABS: Abs Immature Grans 0.16 10^3/uL (0.0-0.06); Absolute Basophil Count 0.01 10^3/uL (0.0-0.2); Absolute Lymphocyte Count 0.45 10^3/uL (1.2-3.4); Absolute Monocyte Count 0.22 10^3/uL (0.1-0.8); Basophils % 0.2; HCT 37.6 % (36.0-46.0); HGB 12.5 g/dL (11.2-15.7); Immature Grans % 2.6; Lymphocytes % 7.3; MCH 32.1 pg (27.0-33.0); MCHC 33.2 % (32.0-36.0); MCV 97 fL (80-95); MPV 9.8 fL (8.0-11.0); Monocytes % 3.6; Neutrophils % 86.3; Platelet Count 135 10^3/uL (130-400); RBC 3.89 10^6/uL (3.93-5.22); RDW-SD 54.9 fL; WBC 6.14 10^3/uL (4.4-10.8)
[2022-05-13 06:33] LABS: Anion Gap 5.6 mmol/L (3-11); BUN 16 mg/dL (7-18); CO2 31.4 mmol/L (21.0-32.0); CREATININE 0.8 mg/dL (0.55-1.02); Calcium 8.7 mg/dL (8.5-10.1); Chloride 103 mmol/L (98-107); Glucose 257 mg/dL (74-106); Magnesium 1.9 mg/dL (1.8-2.4); Sodium 140 mmol/L (136-145)
[2022-05-13 08:00] VITALS: BP 153/87; PULSE 74; RESP 19; TEMP 36; O2SAT 98
[2022-05-13] MEDS: Insulin Aspart 300 UNITS/3 ML PEN SC ×2 (09:22→12:12)
--- NOTE | 2022-05-13 09:56 | W.PM.PROGNOT ---
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 Has been evaluated by Palliative Care. Increasing weakness/fatigue. Going to [facility] on Sunday. Seizures d/t glioma - none today Cont antiseizure meds (2) Chronic kidney disease (CKD) stage G3a/A1, moderately decreased glomerular filtration rate (GFR) between 45-59 mL/min/1.73 square meter and albuminuria creatinine ratio less than 30 mg/g: Status: Acute Assessment and plan: GFR > 60. (3) Type 2 diabetes mellitus: Status: Acute Assessment and plan: Glucose continues to be in the 200's - with her decline in status, we will not be aggressive with glucose control Qualifiers: Diabetes mellitus complication status: without complication Diabetes mellitus halfway insulin use: without termite control servicer use Qualified Code(s): E11.9 - Type 2 diabetes mellitus without complications (4) Hypertension: Status: Chronic Assessment and plan: SBP in the 130's-160's since admission. Not on antihypertensives. Monitor. Qualifiers: Hypertension type: essential hypertension Qualified Code(s): I10 - Essential (primary) hypertension (5) NSTEMI (non-ST elevated myocardial infarction): Status: Acute Assessment and plan: No current c/o CP. No difficulty breathing. (6) Hyperlipidemia: Status: Acute Assessment and plan: Currently not on a lipid lowering agent. Qualifiers: Hyperlipidemia type: mixed hyperlipidemia Qualified Code(s): E78.2 - Mixed hyperlipidemia (7) DVT prophylaxis: Status: Acute Assessment and plan: Enoxaparin Discussed with Dr De Santiago Subjective Subjective Interval history since last seen: Hospital day 4: Sindy has stopped eating and is only taking sips of thickened water. She isn't interactive and has poor eye contact. She does shake her head for yes and no, however is quite somnolent and difficult to arouse. She has not eaten breakfast or lunch today and is not interested in having water or any other beverages. Her pills have been put in pudding by the nurse today and she has taken everything except Keppra, she refused it. Her daughter spoke with Sindy's radiology oncologist yesterday and understands that Sindy is declining rapidly and will not be able to go on the trip to [facility] and might . Exam Const General: cooperative and no acute distress Nutritional Appearance: obese Orientation: awake and oriented to person Limitations: altered mental status Other: Mostly sleeping, alert to voice HENMT Head: normal to inspection Eyes General: appearance normal, both eyes and all related structures Sclera: sclerae normal Chest Chest: normal inspection of the chest Resp Effort & Inspection: normal respiratory effort Auscultation: clear to auscultation bilaterally Cardio Jugular venous pressure: no JVD Rate: regular rate Rhythm: regular rhythm Heart Sounds: S1 normal and S2 normal GI Inspection: obesity Palpation: soft and nontender Back/Spine/Pelvis Back: no CVA tenderness Skin General skin exam: no rashes or lesions noted Extrem General: no pedal edema and no calf tenderness Right upper extremity: normal to inspection and normal capillary refill; ROM limited (flacid (not new)) Left upper extremity: full ROM and normal capillary refill Psych Appearance: grossly normal Speech and Movement: delayed speech Affect: blunted Objective Last Vital Signs Temp 36 C L 05/13/22 08:00 Pulse 74 05/13/22 08:00 Resp 19 05/13/22 08:00 BP 153/87 H 05/13/22 08:00 Pulse Ox 98 05/13/22 08:00 Laboratory Results - last 24 hr 05/13/22 05/13/22 06:08 06:08 WBC 6.14 RBC 3.89 L Hgb 12.5 Hct 37.6 MCV 97 H MCH 32.1 MCHC 33.2 RDW 16.0 H Plt Count 135 MPV 9.8 Immature Gran % 2.6 Neutrophils % 86.3 Lymphocytes % 7.3 Monocytes % 3.6 Eosinophils % 0.0 Basophils % 0.2 Nucleated RBC % 0.0 Absolute Neutrophils 5.30 Absolute Lymphocytes 0.45 L Absolute Monocytes 0.22 Absolute Eosinophils 0.00 Absolute Basophils 0.01 Sodium 140 Potassium 4.0 Chloride 103 Carbon Dioxide 31.4 Anion Gap 5.6 BUN 16 Creatinine 0.8 Estimated GFR/1.73 m2 >= 60.00 Glucose 257 H Calcium 8.7 Magnesium 1.9 Reviewed Pertinent PMH: Yes
[2022-05-13] MEDS: Insulin NPH-Human 300 UNITS/3 ML PEN 12 UNIT SC (09:59)
[2022-05-13] MEDS: clonazePAM 0.5 MG TAB PO ×2 (11:16→20:20)
[2022-05-13] MEDS: Lacosamide 100 MG TAB PO ×2 (11:16→20:19)
[2022-05-13] MEDS: Magnesium Oxide 400 MG TAB PO ×2 (11:16→20:18)
[2022-05-13] MEDS: Allopurinol 300 MG TAB PO (11:16)
[2022-05-13] MEDS: buPROPion-XL 150 MG TABCR 300 MG PO (11:16)
[2022-05-13] MEDS: Dexamethasone 4 MG TAB 6 MG PO ×2 (11:16→20:23)
[2022-05-13] MEDS: Sulfameth/Trimeth DS TAB 1 TAB PO (11:19)
--- NOTE | 2022-05-13 13:00 | PT.INNT ---
PT Notes Visit Reasons: UTI, High Grade Glioma made 3 attempts to see Sindy today, she was sound asleep every time. Family in visiting as she slept. Will check in with her tomorrow am.
[2022-05-13] MEDS: Nystatin POWDER 15 GM JAR TP ×2 (14:31→20:25)
[2022-05-13] MEDS: levETIRAcetam 500 MG TAB 1000 MG PO ×2 (14:31→20:19)
[2022-05-13 15:47] VITALS: BP 119/75; PULSE 78; RESP 18; TEMP 36.2; O2SAT 94
[2022-05-13 23:05] VITALS: BP 145/84; PULSE 84; RESP 18; TEMP 36.8; O2SAT 96
[2022-05-14 03:55] VITALS: BP 128/74; PULSE 67; RESP 14; TEMP 36.3; O2SAT 94
[2022-05-14 08:00] VITALS: BP 136/80; PULSE 84; RESP 16; TEMP 36.6; O2SAT 97
[2022-05-14] MEDS: Insulin Aspart 300 UNITS/3 ML PEN SC (12:22)
--- NOTE | 2022-05-14 12:37 | PT.INTREAT ---
PT Notes Visit Reasons: UTI, High Grade Glioma Inpatient Physical Therapy Treatment Note [facility] Date: 05/14/22 SUBJECTIVE: Sindy awake this am, family with her. Shook her head when I asked if she wanted to get into recliner. OBJECTIVE: [] THEREX: brief ther ex routine this am consisting of AP's, hip abd, SAQ, SLR and heel slides on left x 10 ea. She had pain with right and opted to stop. ASSESSMENT: tolerated session well. Required assistance with right LE. PLAN:will continue to work her strength to her tolerance following PT POC. TREATMENT CODE/TIME: 10 min, [id number]
[2022-05-14 15:35] VITALS: BP 157/89; PULSE 93; RESP 22; TEMP 36.6; O2SAT 96
--- NOTE | 2022-05-14 16:18 | PGE_ITS ---
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 Has been evaluated by Palliative Care. Increasing weakness/fatigue. Going to [facility] on Tuesday 05/15 Seizures d/t glioma - none today Cont antiseizure meds (2) Chronic kidney disease (CKD) stage G3a/A1, moderately decreased glomerular filtration rate (GFR) between 45-59 mL/min/1.73 square meter and albuminuria creatinine ratio less than 30 mg/g: Status: Inactive Assessment and plan: GFR > 60. (3) Type 2 diabetes mellitus: Status: Acute Assessment and plan: Glucose continues to be in the 200's - with her decline in status, we will not be aggressive with glucose control Qualifiers: Diabetes mellitus complication status: without complication Diabetes mellitus jail insulin use: without jail use Qualified Code(s): E11.9 - Type 2 diabetes mellitus without complications (4) Hypertension: Status: Inactive Assessment and plan: SBP stable Not on antihypertensives. Monitor. Qualifiers: Hypertension type: essential hypertension Qualified Code(s): I10 - Essential (primary) hypertension (5) NSTEMI (non-ST elevated myocardial infarction): Status: Inactive Assessment and plan: No current c/o CP. No difficulty breathing. (6) Hyperlipidemia: Status: Inactive Assessment and plan: Currently not on a lipid lowering agent. Qualifiers: Hyperlipidemia type: mixed hyperlipidemia Qualified Code(s): E78.2 - Mixed hyperlipidemia (7) DVT prophylaxis: Status: Inactive Assessment and plan: Chemical DVT ppx contraindicated in setting of brain malignancy. (8) Discharge planning issues: Status: Acute Assessment and plan: Plan to discharge to [facility] 05/[address] De Santiago Subjective Subjective Interval history since last seen: Continues to decline; family is aware and we have discussed ASSEMBLER ARRANGER; current plan is to continue current plan of care and discuss again 05/15, with continued plan of discharge to [facility] 05/15 - Son has arrived, all children are now here. Exam Const Nutritional Appearance: obese Limitations: altered mental status Other: Mostly sleeping, alert to voice Chest Chest: normal inspection of the chest Resp Effort & Inspection: normal respiratory effort Auscultation: clear to auscultation bilaterally Cardio Jugular venous pressure: no JVD Rate: regular rate Rhythm: regular rhythm Heart Sounds: S1 normal and S2 normal GI Inspection: obesity Palpation: soft and nontender Back/Spine/Pelvis Back: no CVA tenderness Skin General skin exam: no rashes or lesions noted Extrem General: no pedal edema and no calf tenderness Left upper extremity: normal capillary refill Psych Affect: blunted Objective Last Vital Signs Temp 36.6 C 05/14/22 08:00 Pulse 84 05/14/22 08:00 Resp 16 05/14/22 08:00 BP 136/80 05/14/22 08:00 Pulse Ox 97 05/14/22 08:00 Reviewed Pertinent PMH: Yes
[2022-05-14] MEDS: Lacosamide 100 MG TAB PO (21:13)
[2022-05-14] MEDS: clonazePAM 0.5 MG TAB PO (21:13)
[2022-05-14] MEDS: Nystatin POWDER 15 GM JAR TP (21:14)
[2022-05-14] MEDS: Insulin Glargine 300 UNITS/3 ML PEN 10 UNITS SC (23:05)
[2022-05-14 23:13] VITALS: BP 137/76; PULSE 84; RESP 18; TEMP 36.6; O2SAT 96
[2022-05-15 06:33] LABS: Platelet Count 145 10^3/uL (130-400)
[2022-05-15 08:38] VITALS: BP 110/64; PULSE 62; RESP 16; TEMP 36; O2SAT 99
[2022-05-15 09:14] LABS: Source Nasal/Nares
[2022-05-15] MEDS: Lacosamide 100 MG TAB PO (09:21)
[2022-05-15] MEDS: Allopurinol 300 MG TAB PO (09:21)
[2022-05-15] MEDS: clonazePAM 0.5 MG TAB PO (09:21)
[2022-05-15] MEDS: Sulfameth/Trimeth DS TAB 1 TAB PO (09:21)
[2022-05-15] MEDS: levETIRAcetam 500 MG TAB 1000 MG PO ×2 (09:21→14:54)
[2022-05-15] MEDS: Magnesium Oxide 400 MG TAB PO (09:21)
[2022-05-15] MEDS: Polyethylene Glycol 3350 17 GM PACKET PO (09:21)
[2022-05-15] MEDS: Dexamethasone 4 MG TAB 6 MG PO (09:22)
[2022-05-15] MEDS: Nystatin POWDER 15 GM JAR TP ×2 (09:22→21:05)
[2022-05-15 10:12] LABS: COVID-19 PCR Negative (Negative)
--- NOTE | 2022-05-15 12:21 | CMPROGNOTE_ITS ---
- If Service Date Differs Date of service: 05/15/22 Time of Service: 12:21 Care Management Progress Note S/O: Sindy was resting comfortably when CM met with her, and CM did not wake her. CM met with her family in the family meeting space to discuss Sindy's discharge plan. Per report, Sindy has declined over the weekend, and at times has decided not to eat/drink or take medications. Her two sons have arrived, therefore all four of her children were present for the conversation. CM stated that it can be difficult for parents to verbalize that they are ready to stop interventions, and to be comfortable, but that these indicators (not eating/drinking/taking meds), could be her way of telling her family what her wishes are. Palliative was asked to meet with Sindy and her family again to discuss Sindy's goals of care, and she decided to transition to comfort measures. CM reached out to admissions at [facility] to inquire about going to the facility skilled for end of life care. Sindy's children have to leave the area to return to their homes soon, and will not be available to be with her real time analyst to provide her care. CM will continue to follow. A: Sindy is a 77 year old female admitted to [facility] on 05/09/22 with UTI, high grade Glioma. P: Sindy will likely go to SNF for short term rehab prior to traveling with her daughters. She will transport via w/c van vs EMS, depending on her mobility at the time of discharge. She will follow up with her PCP and discharge plan of care. CM will continue to follow.
[2022-05-15] MEDS: Insulin Aspart 300 UNITS/3 ML PEN SC (12:33)
[2022-05-15] MEDS: Gabapentin 300 MG CAP PO (12:51)
--- NOTE | 2022-05-15 14:54 | PGE_ITS ---
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 She realizes she is weak and does not want to pursue going to [place] or [facility]. She would like only medications that will make her feel more comfortable. She has had no seizures. She can have lorazepam IV as needed. (2) Chronic kidney disease (CKD) stage G3a/A1, moderately decreased glomerular filtration rate (GFR) between 45-59 mL/min/1.73 square meter and albuminuria creatinine ratio less than 30 mg/g: Status: Inactive Assessment and plan: GFR > 60. (3) Type 2 diabetes mellitus: Status: Acute Assessment and plan: FRESH WORK WRAPPER LAYER - We are no longer checking her glucose and she does not want to have any insulin. Qualifiers: Diabetes mellitus complication status: without complication Diabetes mellitus [place] [facility] insulin use: without termite exterminator use Qualified Code(s): E11.9 - Type 2 diabetes mellitus without complications (4) Constipation: Status: Acute Assessment and plan: No BM since prior to admission - she denies pain, declines suppository. She is declining p.o. medications will provide a suppository as needed or enema (5) Hypertension: Status: Inactive Assessment and plan: Her blood pressure has been stable here, she is not taking any antihypertensives. Qualifiers: Hypertension type: essential hypertension Qualified Code(s): I10 - Essential (primary) hypertension (6) NSTEMI (non-ST elevated myocardial infarction): Status: Inactive Assessment and plan: FRESH WORK WRAPPER LAYER - (7) Hyperlipidemia: Status: Inactive Assessment and plan: FRESH WORK WRAPPER LAYER. Sindy has decided that she does not want to continue taking her medications and would like comfort measures only - her medications that are unnecessary have been discontinued. Qualifiers: Hyperlipidemia type: mixed hyperlipidemia Qualified Code(s): E78.2 - Mixed hyperlipidemia (8) DVT prophylaxis: Start date: 05/15/22 Status: Inactive Assessment and plan: Discontinued - FRESH WORK WRAPPER LAYER (9) Discharge planning issues: Status: Acute Assessment and plan: Plan [facility] De Santiago Subjective Subjective Patient reports: tolerating liquids well and no bowel movement Interval history since last seen: Family reports it has been several days since Sindy has had a BM. Sindy denies abd pain, denies the urge, has been drinking prune juice. Offered a supository - she declined. She has been declining most of her medication today and has been sleeping. Her family, 4 children, are here and in discussion with their mother and palliative care's SENIOR FINANCE MANAGER Aline, Sindy has decided to change her status to [facility]. We will continue the plan to go to [facility] tomorrow 05/16 Exam Narrative Exam Narrative: Appears comfortable Const General: cooperative and comfortable Nutritional Appearance: obese Limitations: altered mental status Other: Mostly sleeping, alert to voice Neck Neck: normal visual inspection Chest Chest: normal inspection of the chest Resp Effort & Inspection: normal respiratory effort Auscultation: clear to auscultation bilaterally Cardio Jugular venous pressure: no JVD Rate: regular rate Rhythm: regular rhythm Heart Sounds: S1 normal and S2 normal GI Inspection: obesity Palpation: soft and nontender Back/Spine/Pelvis Back: no CVA tenderness Skin General skin exam: no rashes or lesions noted Extrem General: no pedal edema and no calf tenderness Left upper extremity: normal capillary refill Psych Affect: blunted Objective Last Vital Signs Temp 36.0 C L 05/15/22 08:38 Pulse 62 05/15/22 08:38 Resp 16 05/15/22 08:38 BP 110/64 05/15/22 08:38 Pulse Ox 99 05/15/22 08:38 Laboratory Results - last 24 hr 05/15/22 05/15/22 05:51 09:02 Plt Count 145 COVID-19 Source Nasal/Nares SARS-CoV-2 (PCR) Negative Reviewed Pertinent PMH: Yes
[2022-05-15 15:09] VITALS: BP 127/81; PULSE 90; RESP 17; TEMP 36; O2SAT 94
--- NOTE | 2022-05-15 16:54 | W.PALLCONSUL ---
Date of service: 05/15/22 Time of Service: 15:30 History of Present Illness Narrative: Ms. 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 w/dx w/LS glioblastoma ; PMHx sig for DM; present today pt and daughter/DPSHANTE Pringle, report from Yary and Kathy, two sons Rhett and Bal no longer engaging in treatment for glioblastoma, now focusing on comfort and EOL care; family unable to care for pt safely in home, plan for d/c to H/R today delayed d/t technical difficulties at H/R, plan to d/c there tomorrow on TUBE BENDING MACHINE OPERATOR; pt had previously completed AD which family is following now, w/plan to focus on comfort; pt has had significant decrease in oral intake x3 days, now sips of fluids, last evening did eat dinner after family had left, today limited to sips, mostly unresponsive, comfortable all four children agree to POC, which includes no invasive interventions, including avoiding IVF; pt continues to make urine, significantly decreased earlier pt was experiencing leg cramps, now controlled w/gabapentin request chaplan services for pt once conversation is over; Chau's son trying to facetime to say goodbye, need assistance w/appropriate device Assessment and Plan Assessment and plan (1) 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: Status: Acute Assessment and plan: no longer engaging in treatments hospice eligible (2) Comfort measures only status: Status: Acute Assessment and plan: reviewed TUBE BENDING MACHINE OPERATOR status, goals through EOL; family reports all necessary family/friends have been notified, believe all pt's wishes have been honored; all four children present through Sunday to transfer to H/R for EOL on TUBE BENDING MACHINE OPERATOR tomorrow to stop all unnecessary medications starting today to continue frequent position changes to avoid skin breakdown w/comfort as goal (3) Discharge planning issues: Status: Acute Assessment and plan: H/R unable to take pt today, will try tomorrow (4) Palliative care patient: Status: Acute Assessment and plan: reviewed EOL care goals, COLST UTD spoke to staff to have tablet brought into room for family from away to have opportunity to visit w/pt request underground repairer visit this evening for pt comfort to f/u PRN, transition to hospice as insurance eligible at / Review of Systems Narrative: pt unable to participate in visit, see HPI PFSH All Active Problems (Updated 05/15/22 @ 17:06 by Valarie Vines NP) Comfort measures only status (Acute) Constipation (Acute) Discharge planning issues (Acute) DVT prophylaxis (Acute) Palliative care patient (Acute) Acute UTI (Acute) Right rotator cuff tear (Acute ~04/2022) 05/04/22 Hem/Oncology Seizures (Acute ~03/2022) 04/25/22 Hem/Onc Note, Dr Nolan 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 (Acute ~02/2022) 03/21/22 [facility] [place]/30/22 Neuro/Onc treatments discussed, F/U pending treatment decision [facility] Onc Cerebral edema (Acute) Weakness on right side of face (Acute) Chronic kidney disease (CKD) stage G3a/A1, moderately decreased glomerular filtration rate (GFR) between 45-59 mL/min/1.73 square meter and albuminuria creatinine ratio less than 30 mg/g (Acute 02/17/15) Type 2 diabetes mellitus (Acute 02/17/15) Complete tear of right rotator cuff (Chronic 01/17/18) Hypertension (Chronic) NSTEMI (non-ST elevated myocardial infarction) (Acute 06/18/18) Hyperlipidemia (Acute) Restless legs syndrome (Acute 02/08/13) Sleep Study 12/2012: abundant periodic limb movements causing signficant sleep fragmentation; no sleep apnea; Hyperuricemia without signs of inflammatory arthritis and tophaceous disease (Acute) Psoriasis (Chronic) Former Cigarette Smoker (Chronic ~2018) quit in 2019 following [place] Osteoarthritis of hands, bilateral (Acute) Other recurrent depressive disorders (Acute 02/01/15) Vitamin D deficiency (Acute 02/17/15) Myalgia (Acute 03/27/17) Morbid obesity (Acute 02/17/15) Marijuana use (Acute 09/08/15) Rice Krispie bars w/marijuana Low back pain (Acute 02/01/15) Fatigue (Acute 02/17/15) Environmental allergies (Acute 02/17/15) Edema (Acute 02/17/15) Medical History Carpal tunnel syndrome, left (01/17/18) Cataracts, bilateral Mild visually significant cataracts 01/06/21 Disorder of tongue (02/01/15) Generalized weakness Hip pain (02/01/15) Insomnia (02/17/15) Left medial knee pain (01/2019) Fell in the beginning of January, w/o clear twisting/injury of knee, but knee started hurting 2 weeks later. Started aching @ night .. then pain increased, jose with walking. Improved today post CBD oil and recent rest. But tender. Recovery may be delayed 2' walking, standing @ yard sale... T2DM (type 2 diabetes mellitus) Tobacco abuse quit 2017, occasionally since then Surgical History Endoscopic Carpal Tunnel release (03/13/18) Left History of umbilical hernia repair (~2001) Tonsillectomy and adenoidectomy (02/17/1954) Family History Mother Osteoporosis Arthritis Heart disease Stroke Father Diabetes Arthritis Heart disease Emphysema lung Stroke Sister Diabetes Arthritis Heart disease Mental disorder Social History Smoking/Tobacco Use Status: Former Tobacco Use Quit Date: 05/31/18 Tobacco: How many years used: 45 Smoking risk assessment performed?: Yes Alcohol Intake: current Alcohol Intake frequency: a few times a month Drug use: Occasionally Substance use type: does not use Household members: none Housing: apartment Number of Children: 4 Communication Needs: Corrective Lenses What is your relationship status?: Panel score (0-1 are the most socially isolated patients): 0 What type of physical activity do you participate in: none Seatbelt use: always Drive intox or ride w/intox 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 Working smoke detector in home: Yes Fire extinguisher in home: Yes Carbon monox detector in home: Yes Do you feel safe at home: Yes Do you feel safe in your relationship?: Yes Exam Narrative Exam Narrative: pt lying comfortable in bed w/HOB elevated throughout visit; sleeping throughout, alert to voice respirations unlabored and regular effort no rash or skin lesions no pedal edema Results Last Vital Signs Temp 96.8 F L 05/15/22 15:09 Pulse 90 05/15/22 15:09 Resp 17 05/15/22 15:09 BP 127/81 05/15/22 15:09 Pulse Ox 94 05/15/22 15:09 Labs Result diagrams: 05/15/22 05:51 05/13/22 06:08 Labs: Laboratory Results - last 24 hr 05/15/22 05/15/22 05:51 09:02 Plt Count 145 COVID-19 Source Nasal/Nares SARS-CoV-2 (PCR) Negative
[2022-05-15] MEDS: LORazepam 20 MG/10 ML VIAL IV/SC (23:51)
[2022-05-16] MEDS: MORPHine 4 MG/ML SYR IV/SC ×4 (02:04→20:05)
--- NOTE | 2022-05-16 11:34 | CMPROGNOTE_ITS ---
- If Service Date Differs Date of service: 05/16/22 Time of Service: 11:34 Care Management Progress Note S/O: Sindy was resting comfortably when CM met with her. Per RN, she has not been eating or drinking, and has had little output. Her plan was to go to [facility] today, but due to her decline, she is no longer able to engage with therapies, therefore she will remain at [facility] for end of life care. CARLOTA discussed this with her family, who are all in agreement with the plan. Her four children- Yary, Kathy, Ayden and Tereso have all been visiting, and are all very supportive of their mother's wishes. CM will continue to support Sindy and her family during this difficult time. A: Sindy is a 77 year old female admitted to [facility] on 05/09/22 with UTI, high grade Glioma. P: Sindy will remain at [facility] for end of life care. Her family are very supportive and are visiting regularly. Her DPOA forms indicate that she would like to be cremated. CM will discuss final arrangements with her family. CM will continue to follow.
[2022-05-16] MEDS: LORazepam 20 MG/10 ML VIAL IV/SC ×2 (12:15→15:15)
--- NOTE | 2022-05-16 16:03 | CHAPLAIN ---
Sindy is receiving comfort care now. There is some discussion about transferring to [facility] for end of life care. All four of her children are here. Her sister, brothers and cousins have been in to visit Sindy. She is minimally responsive, opening her eyes and nodding. Family members are intending to stay around the clock. Some family members need to return to [facility] for a few days, this coming weekend. They may be trying to connect with other family members by iPad. I will continue to visit.
--- NOTE | 2022-05-16 19:29 | W.PM.PROGNOT ---
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 (4) Palliative care patient: Status: Acute Assessment and plan: reviewed EOL care goals, COLST [place] spoke to staff to have tablet brought into room for family from away to have opportunity to visit w/pt request sewer pipe layer visit this evening for pt comfort to f/u PRN, transition to hospice as insurance eligible at H/R Subjective Subjective Patient reports: tolerating liquids well and no bowel movement Interval history since last seen: Family reports it has been several days since Sindy has had a BM. Sindy denies abd pain, denies the urge, has been drinking prune juice. She has been declining most of her medication today and has been sleeping. Her family, 4 children, are here. Today she and her family decline going to the [facility]; shse would like to stay herre for EOL care. Exam Narrative Exam Narrative: pt lying comfortable in bed w/HOB elevated throughout visit; sleeping throughout, alert to voice respirations unlabored and regular effort no rash or skin lesions no pedal edema Objective Last Vital Signs Temp 36.0 C L 05/15/22 15:09 Pulse 90 05/15/22 15:09 Resp 17 05/15/22 15:09 BP 127/81 05/15/22 15:09 Pulse Ox 94 05/15/22 15:09
[2022-05-16] MEDS: Nystatin POWDER 15 GM JAR TP (20:07)
[2022-05-17] MEDS: MORPHine 4 MG/ML SYR IV/SC ×4 (00:50→12:50)
[2022-05-17] MEDS: LORazepam 20 MG/10 ML VIAL IV/SC ×2 (00:51→03:14)
[2022-05-17] MEDS: Nystatin POWDER 15 GM JAR TP ×3 (09:21→21:36)
--- NOTE | 2022-05-17 11:17 | PGE_ITS ---
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 will remain here for end of life care discussed with DR Gotti Subjective Subjective Interval history since last seen: remains obtunded, morphine given for comfort which is effective. family remains at bedside. Exam Const General: comfortable and no acute distress Nutritional Appearance: obese Orientation: obtunded Resp Effort & Inspection: normal respiratory effort Skin General skin exam: other (pale and dry) Objective Last Vital Signs Temp 36.0 C L 05/15/22 15:09 Pulse 90 05/15/22 15:09 Resp 17 05/15/22 15:09 BP 127/81 05/15/22 15:09 Pulse Ox 94 05/15/22 15:09
[2022-05-17] MEDS: MORPHine 1,000 MG in CADD PUMP CASSETTE 1 EACH, Normal Saline 80 ML 0.1 MG SC INF (13:50)
--- NOTE | 2022-05-17 14:42 | CHAPLAIN ---
Sindy is receiving comfort measures. Her four adult children are visiting continually. Brothers, sister and cousin have also visited. Family is notifying nurse when Sindy seems agitated or uncomfortable. Most of the children will remain here through Sunday. Plans to transfer Sindy to [facility] have been changed and Sindy will remain here for end of life care. I've had conversations with family members about end of life care, signs and symptoms of dying. They all remain supportive of Sindy and each other.
--- NOTE | 2022-05-17 16:35 | PDOC.CMPRO ---
- If Service Date Differs Date of service: 05/17/22 Time of Service: 16:35 Care Management Progress Note S/O: Sindy is being kept comfortable, and was transitioned to a morphine pump today, as she was being given several PRN doses of morphine and ativan. CM met with her family today, who are remaining by her side for her end of life care. They have a refreshment cart in the room, and have been going to the cafeteria for meals. May, the Janitor Helper, has been visiting regularly as well. CM will continue to follow. A: Sindy is a 77 year old female admitted to [facility] on 05/09/22 with UTI, high grade Glioma. P: Sindy will remain at [facility] for end of life care. Her family are very supportive and are visiting regularly. Her DPOA forms indicate that she would like to be cremated. CM will discuss final arrangements with her family. CM will continue to follow.
--- NOTE | 2022-05-17 17:06 | CHAPLAIN ---
I visited Sindy late this afternoon. The family members had stepped out. Her breaths have very long pauses between them. I let nursing know.
[2022-05-18] MEDS: LORazepam 2 MG/1 ML Oral Concentrate 1 MG PO ×2 (01:24→09:07)
[2022-05-18] MEDS: Scopolamine 1 MG/3 DAYS PATCH TD (03:55)
[2022-05-18] MEDS: Nystatin POWDER 15 GM JAR TP ×2 (07:31→14:00)
[2022-05-18] MEDS: Glycopyrrolate 0.2 MG/1 ML VIAL IM ×4 (11:47→18:28)
[2022-05-18] MEDS: LORazepam 20 MG/10 ML VIAL IM/SC (11:48)
--- NOTE | 2022-05-18 17:28 | PDOC.CMPRO ---
- If Service Date Differs Date of service: 05/18/22 Time of Service: 17:28 Care Management Progress Note S/O: Sindy was resting comfortably when CM met with her. At the time, her visitors had stepped out of the room, but her family has consistently been present. CM met with Yary and Kathy later in the afternoon, and provided resources for final arrangements. They will inform CM labor employment associate once they decide. CM will continue to follow. A: Sindy is a 77 year old female admitted to [facility] on 05/09/22 with UTI, high grade Glioma. P: Sindy will remain at [facility] for end of life care. Her family are very supportive and are visiting regularly. Her DPOA forms indicate that she would like to be cremated. CM will discuss final arrangements with her family. CM will continue to follow.
--- NOTE | 2022-05-19 09:37 | W.PM.DDS ---
Date of service: 05/18/22 Time of Service: 19:30 Discharge Sum: Prov Provider Consults: 05/10/22 07:27 Palliative Care Consult [CONS] Routine Consultation Status:: Follow-up needed Clarification:: Manage/follow per spec. Reason for consult:: High grade glioma. Goals of care. Code status 05/15/22 13:54 Palliative Care Consult [CONS] Routine Consultation Status:: Follow-up needed Clarification:: Manage/follow per spec. 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
== END 2022-05-18 21:00 | disposition expired | DRG 54 ==
LOC: ER 17:43 → MS 17:51
PROVIDERS: Internal Medicine; Nurse Practitioner Family; Physician Assistant; Admitting Provider Family Medicine; Emergency Provider Physician Assistant; PCP Internal Medicine; Visit Provider Family Medicine
DX: C71.9 Malignant neoplasm of brain, unspecified (principal); G93.6 Cerebral edema; N39.0 Urinary tract infection, site not specified; I12.9 Hypertensive chronic kidney disease with stage 1 through stage 4 chronic kidney disease, or unspecified chronic kidney disease; E11.22 Type 2 diabetes mellitus with diabetic chronic kidney disease; E11.649 Type 2 diabetes mellitus with hypoglycemia without coma; I25.10 Atherosclerotic heart disease of native coronary artery without angina pectoris; E55.9 Vitamin D deficiency, unspecified; R60.0 Localized edema; Z79.4 Long term (current) use of insulin; Z66 Do not resuscitate; R56.9 Unspecified convulsions; N18.31 Chronic kidney disease, stage 3a; I25.2 Old myocardial infarction; Z87.891 Personal history of nicotine dependence; E66.01 Morbid (severe) obesity due to excess calories; Z68.39 Body mass index [BMI] 39.0-39.9, adult; M54.50 Low back pain, unspecified; E78.2 Mixed hyperlipidemia; R26.2 Difficulty in walking, not elsewhere classified; Z51.5 Encounter for palliative care
CPT/HCPCS: 36415; 36416; 71275; 76942; 80048; 80053; 82805; 82962; 87040; 87077; 87635; 93005; 96374; 97110; 97163; 97530; 99285; J1650; 70450; 81003; 81015; 83605; 83735; 84484; 85025; 85049; 87086; 87186; 93010; 93971; 99219; 99225; 99232; 99233; J2270; J3490; J8540

== ENCOUNTER 2022-05-11 02:19 | Outpatient (CLI) | payer MEDICARE, OTHER, SELFPAY | END 2022-05-11 02:20 | disposition home or self-care (01) | LOC: LBO 02:19 | PROVIDERS: PCP Internal Medicine; Visit Provider Internal Medicine ==